=== PATIENT | male | born 1935 | race Caucasian/White ===

== ENCOUNTER 2016-06-17 15:53 | Inpatient (IN) | payer MEDICARE, BC ==
[2016-06-17] MEDS ORDERED: HEPARIN SODIUM,PORCINE 5,000 UNIT/ML 1 ML VIAL IV ONE (20:23)
[2016-06-17] MEDS ORDERED: HEPARIN SODIUM,PORCINE 5,000 UNIT/ML 1 ML VIAL IV PRN (20:23)
[2016-06-17] MEDS ORDERED: SODIUM CHLORIDE 0.9% 1,000 ML IV SCH (20:30)
[2016-06-17] MEDS ORDERED: HEPARIN SODIUM,PORCINE/D5W PMX 25,000 UNIT in DEXTROSE/WATER 1 500ML.BAG IV SCH (20:30)
[2016-06-17 21:09] LABS: Glucose,Whole Blood 113 mg/dL (75-99)
[2016-06-17 21:27] VITALS: BMI 29.0
[2016-06-17 21:28] LABS: Basophils # (A) 0.1 k/uL (0-0.2); Basophils % (A) 1 %; CH 32.8; CHCM 33.3; Eosinophils # (A) 0.5 k/uL (0-0.7); Eosinophils % (A) 8 %; HCT 45.4 % (39.0-53.0); HDW 2.81; HGB 14.3 gm/dL (13.0-17.5); Luc # (Auto) 0.21; Luc % (Auto) 3; Lymphocytes # (A) 1.4 k/uL (1.0-4.8); Lymphocytes % (A) 22 %; MCH 31.2 pg (25.0-35.0); MCHC 31.5 g/dL (31.0-37.0); MCV 98.8 fL (80.0-100.0); Macrocytosis Slight; Monocytes # (A) 0.5 k/uL (0-1.0); Monocytes % (A) 7 %; Neutrophils # (A) 3.7 k/uL (1.3-7.7); Neutrophils % (A) 59 %; RBC 4.59 m/uL (4.30-5.90); RDW 14.8 % (11.5-15.5); WBC 6.3 k/uL (3.8-10.6); WBC (Perox) 6.36
[2016-06-17 21:33] LABS: INR 1.2 (<1.1); Partial Thromboplastin Time 29.5 sec (22.0-30.0)
[2016-06-17 21:49] LABS: Creatine Kinase MB 21.4 ng/mL (0.0-2.4); Troponin I 5.32 ng/mL (0.000-0.034)
[2016-06-17] MEDS: GABAPENTIN 400 MG CAP PO SCH (23:24)
[2016-06-18 02:57] LABS: Creatine Kinase MB 20.5 ng/mL (0.0-2.4); Troponin I 7.07 ng/mL (0.000-0.034)
[2016-06-18 06:31] LABS: Glucose,Whole Blood 119 mg/dL (75-99)
[2016-06-18] MEDS: PANTOPRAZOLE 40 MG TABLET PO SCH (06:35)
[2016-06-18] MEDS: GABAPENTIN 400 MG CAP PO SCH ×4 (08:17→21:39)
[2016-06-18] MEDS: METOPROLOL TARTRATE 50 MG TAB PO SCH (08:18)
[2016-06-18] MEDS: ALLOPURINOL 300 MG TAB PO SCH (08:18)
[2016-06-18] MEDS: ISOSORBIDE MONONITRATE ER 60 MG TAB.ER.24H PO SCH (08:18)
[2016-06-18] MEDS: SPIRONOLACTONE 25 MG TAB PO SCH ×2 (08:18→21:39)
[2016-06-18 08:29] LABS: Basophils # (A) 0.1 k/uL (0-0.2); Basophils % (A) 1 %; CH 32.7; CHCM 33.6; Eosinophils # (A) 0.6 k/uL (0-0.7); Eosinophils % (A) 8 %; HCT 42.4 % (39.0-53.0); HDW 2.85; HGB 13.8 gm/dL (13.0-17.5); Luc # (Auto) 0.11; Luc % (Auto) 1; Lymphocytes # (A) 1.2 k/uL (1.0-4.8); Lymphocytes % (A) 15 %; MCH 31.9 pg (25.0-35.0); MCHC 32.6 g/dL (31.0-37.0); MCV 97.7 fL (80.0-100.0); Mean Platelet Volume 8.1; Monocytes # (A) 0.5 k/uL (0-1.0); Monocytes % (A) 6 %; Neutrophils # (A) 5.7 k/uL (1.3-7.7); Neutrophils % (A) 69 %; RBC 4.34 m/uL (4.30-5.90); RDW 14.9 % (11.5-15.5); WBC 8.2 k/uL (3.8-10.6); WBC (Perox) 8.45
[2016-06-18 09:18] LABS: Troponin I 7.32 ng/mL (0.000-0.034)
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
[2016-06-18] MEDS ORDERED: SODIUM CHLORIDE 0.9% 1,000 ML in EMPTY BAG 1 BAG IV ONE (11:28)
[2016-06-18] MEDS ORDERED: NITROGLYCERIN SL TABS 0.4 MG TAB SUBLINGUAL PRN ×2 (11:28→13:17)
[2016-06-18] MEDS ORDERED: ALPRAZolam 0.25 MG TAB PO PRN (11:28)
[2016-06-18] MEDS ORDERED: ATORVASTATIN 80 MG TAB PO STA (11:28)
[2016-06-18] MEDS ORDERED: ASPIRIN 325 MG TAB PO STA (11:28)
[2016-06-18] MEDS ORDERED: ALPRAZolam 0.5 MG TAB PO PRN (11:28)
[2016-06-18] MEDS ORDERED: LIDOCAINE 2% INJ 20 MG/ML (20 ML MDV) ONE (11:34)
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
[2016-06-18] MEDS ORDERED: MIDAZOLAM 2 MG/2 ML VIAL ONE (11:55)
[2016-06-18] MEDS ORDERED: IV FLUID CONTINUATION 250 ML IV ONE (11:59)
[2016-06-18 12:03] LABS: Cholesterol 237 mg/dL (<200); HDL Cholesterol 42 mg/dL (40-60); Triglycerides 313 mg/dL (<150)
[2016-06-18] MEDS ORDERED: LIDOCAINE 2% INJ 20 MG/ML SQ ONE (12:15)
[2016-06-18] MEDS: MIDAZOLAM 2 MG/2 ML VIAL IV ONE ×2 (12:15→12:48)
[2016-06-18] MEDS ORDERED: BIVALIRUDIN BOLUS 250 MG/50 ML IV ONE (12:46)
[2016-06-18] MEDS ORDERED: BIVALIRUDIN 250 MG in SODIUM CHLORIDE 0.9% 50 ML IV ONE (12:47)
[2016-06-18] MEDS ORDERED: fentaNYL (PF) 50 MCG/ML 2 ML AMP ONE (12:51)
[2016-06-18] MEDS ORDERED: fentaNYL (PF) 50 MCG/ML 2 ML AMP IV ONE (12:52)
[2016-06-18] MEDS ORDERED: SODIUM CHLORIDE 0.9% 500 ML IV ONE (12:56)
[2016-06-18] MEDS ORDERED: SODIUM CHLORIDE 0.9% (PF) 10 ML VIAL ONE (13:00)
[2016-06-18] MEDS ORDERED: CLOPIDOGREL 75 MG TAB ONE (13:00)
[2016-06-18] MEDS ORDERED: niCARdipine 25 MG/10 ML VIAL ONE (13:00)
[2016-06-18] MEDS: niCARdipine Syringe (1,000 mcg/10 mL) INTRACORON ONE ×2 (13:03→13:09)
[2016-06-18] MEDS ORDERED: CLOPIDOGREL 75 MG TAB PO ONE (13:08)
[2016-06-18] MEDS ORDERED: IODIXANOL 320 MG/ML 100 ML INTRAARTER ONE (13:13)
[2016-06-18] MEDS ORDERED: MAG HYDROX/AL HYDROX/SIMETH 30 ML CUP PO PRN (13:17)
[2016-06-18] MEDS ORDERED: ZOLPIDEM 5 MG TAB PO PRN (13:17)
[2016-06-18] MEDS ORDERED: RX INFO: IV CONTRAST WAS GIVEN 1 EACH MISC MISCELLANE PRN (13:17)
[2016-06-18] MEDS ORDERED: SODIUM CHLORIDE 0.9% 1,000 ML IV SCH (13:30)
[2016-06-18 17:33] LABS: Glucose,Whole Blood 132 mg/dL (75-99)
[2016-06-18] MEDS: GLIMEPIRIDE 0.5 MG TAB PO SCH (18:03)
[2016-06-18 20:25] LABS: Glucose,Whole Blood 212 mg/dL (75-99)
--- NOTE | 2016-06-18 22:05 | CC ---
DATE OF SERVICE: June 18, 2016 PERFORMING PHYSICIAN: Andrzej Fan, ribber. PROCEDURE PERFORMED: 1. Aortic root angiogram. 2. Selective right and left coronary angiogram. 3. Successful stenting of the mid left circumflex using a 2.5 x 23 and 2.5 x 12 mm Xience SHANI with a good angiographic results. 4. Successful balloon angioplasty of the proximal left circumflex for in-stent restenosis using 2.75 x 15 mm noncompliant balloon with a good angiographic results. INDICATION: This is a pleasant 80-year-old male gentleman who sees Dr. Baldemar Baer as an outpatient with a known history of coronary artery disease and prior stenting of the RCA and left circumflex presented to the hospital with chest discomfort and was diagnosed with acute [id number] MA. He continues to have chest discomfort associated with ST changes in the inferolateral leads. The decision was made toward heart catheterization and percutaneous coronary intervention. Approach: Right common femoral artery. COMPLICATIONS: None. Level of sedation: Moderate. PROCEDURE DESCRIPTION: After obtaining informed consent, the patient was brought to the cardiac catholic priest. Right common femoral artery was cannulated using micropuncture technique. The micropuncture wire passed easily, then I placed a 6 Algerian sheath in the right common femoral artery. Subsequently, I did selective right and left coronary angiogram. Initially, I tried to engage the right and left coronary artery and had some difficulties in view of the previous history of ( ) and percutaneous aortic valve placement. Finally, I was able to engage the right and left coronary arteries. For the right coronary artery, I was able to engage it using Gallo Welch catheter and for the left coronary system, I was able to engage it using JL4 catheter. I did initiate an aortic root angiogram just to localize the ostium of the right and left coronary system. After that, I did intervene on the left circumflex. Please see separate paragraph for that. SELECTIVE CORONARY ANGIOGRAM: 1. The right coronary artery is a large-caliber vessel, it is a dominant vessel. It is a tortuous vessel as well. The proximal RCA appeared to have mild disease only. The mid RCA seems to be stented and the stent is patent. The RCA distally seems to have mild disease only and bifurcates into PDA and PLV branches; both are angiographically normal. 2. The left main is short left main but angiographically normal. It bifurcates into the left circumflex and left anterior descending artery. 3. The left circumflex is a large-caliber vessel and it is a nondominant vessel. The proximal left circumflex seems to be stented with severe in-stent restenosis. The mid left circumflex has a long tubular lesion seems to be in the range of 80% to 90%. The left circumflex in the very distal portion is angiographically normal. 4. Left anterior descending artery. The proximal LAD appeared to have mild disease only and gives rises into the first diagonal branch, which appeared to be angiographically normally. The mid LAD has a lesion in the range of 50%. The LAD distally is normal. Aortic root angiogram: The aortic root angiogram was performed in the JUNI projection and using a power injection. The aortic root seems to have mild disease only. There is no formation or dissection. PCI of the left circumflex: Anticoagulation was initiated using Angiomax. Subsequently, I did engage the left main using JL 3.5 guiding catheter. Then I wired the left circumflex using a whisper wire. I did balloon angioplasty of the left circumflex using 2.5 x 15 mm balloon and subsequently I deployed 2.5 x 23 and 2.5 x 12 mm Xience SHANI, where the 2 stents were positioned under fluoroscopy guidance and deployed under their nominal pressure. The area of overlap of the stent was dilated using stent balloon. Then I did balloon angioplasty of the stent in the proximal left circumflex using 2.75 x 15 mm noncompliant balloon which was inflated under 18 atmospheres for 20 seconds. The following angiogram showed a good angiographic result without perforation or dissection with MERON-3 flow. CONCLUSION: 1. Patent stent in the mid right coronary artery. 2. Severe in-stent restenosis involving the stent in the proximal left circumflex. 3. Severe de nan coronary artery disease involving the mid left circumflex. 4. Successful stenting of the mid left circumflex using 2.5 x 23 and 2.5 x 12 mm Xience SHANI with a good angiographic results. 5. Successful balloon angioplasty of the proximal left circumflex using 2.75 x 15 mm noncompliant balloon with good angiographic results. POSTPROCEDURE MANAGEMENT: 1. Dual antiplatelet therapy. 2. Risk factor modification. 3. Follow up with the patient.
[2016-06-19 06:14] LABS: Glucose,Whole Blood 93 mg/dL (75-99)
[2016-06-19 06:31] LABS: Basophils # (A) 0.1 k/uL (0-0.2); Basophils % (A) 1 %; CH 32.6; CHCM 33.2; Eosinophils # (A) 0.5 k/uL (0-0.7); Eosinophils % (A) 7 %; HCT 42.4 % (39.0-53.0); HDW 2.81; HGB 13.3 gm/dL (13.0-17.5); Luc # (Auto) 0.12; Luc % (Auto) 2; Lymphocytes % (A) 14 %; MCHC 31.4 g/dL (31.0-37.0); MCV 98.9 fL (80.0-100.0); Macrocytosis Slight; Mean Platelet Volume 7.9; Monocytes # (A) 0.6 k/uL (0-1.0); Monocytes % (A) 9 %; Neutrophils # (A) 4.5 k/uL (1.3-7.7); Neutrophils % (A) 67 %; RBC 4.29 m/uL (4.30-5.90); RDW 14.8 % (11.5-15.5); WBC 6.7 k/uL (3.8-10.6); WBC (Perox) 6.71
[2016-06-19] MEDS: PANTOPRAZOLE 40 MG TABLET PO SCH (06:45)
[2016-06-19 06:48] LABS: Anion Gap 10 mmol/L; Calcium 9.4 mg/dL (8.4-10.2); Carbon Dioxide 21 mmol/L (22-30); Chloride 107 mmol/L (98-107); Glucose 99 mg/dL (74-99); Non-African American GFR(MDRD) 58 (>60 ml/min/1.73 sqM); Sodium 138 mmol/L (137-145); Total Bilirubin 0.6 mg/dL (0.2-1.3); Total Protein 6.4 g/dL (6.3-8.2)
[2016-06-19 06:51] LABS: ALT 38 U/L (21-72); AST 47 U/L (17-59); Alkaline Phosphatase 63 U/L (38-126); Blood Urea Nitrogen 21 mg/dL (9-20); Potassium 4.4 mmol/L (3.5-5.1)
[2016-06-19] MEDS: SPIRONOLACTONE 25 MG TAB PO SCH ×2 (08:26→21:02)
[2016-06-19] MEDS: ISOSORBIDE MONONITRATE ER 60 MG TAB.ER.24H PO SCH (08:26)
[2016-06-19] MEDS: GABAPENTIN 400 MG CAP PO SCH ×4 (08:26→21:02)
[2016-06-19] MEDS: ALLOPURINOL 300 MG TAB PO SCH (08:26)
[2016-06-19] MEDS: GLIMEPIRIDE 0.5 MG TAB PO SCH (08:26)
[2016-06-19] MEDS: METOPROLOL TARTRATE 50 MG TAB PO SCH (08:26)
[2016-06-19 08:59] LABS: Hemoglobin A1C 6.9 % (4.2-6.1)
[2016-06-19] MEDS ORDERED: ASPIRIN 325 MG TAB PO SCH (09:00)
--- NOTE | 2016-06-19 11:46 | P.PN ---
Subjective Patient presented with chest pain and evidence of acute RI. Underwent heart cath with angioplasty and stent yesterday. Patient is current with chest pain- free. Denies any shortness of breath. Denies a nausea or vomiting. Denies any bowel movement changes or urinary symptoms. Objective - Vital Signs Vital signs: Vital Signs Temp 97.3 F L 06/19/16 08:00 Pulse 60 06/19/16 08:00 Resp 16 06/19/16 08:00 BP 122/59 06/19/16 08:00 Pulse Ox 98 06/19/16 08:00 Intake & Output 06/18/16 06/19/16 06/19/16 18:59 06:59 18:59 Intake Total 375.863 298 Output Total 900 600 450 Balance -524.137 -600 -152 Weight 96 kg Intake: IV 230.6 Intake, IV Titration 145.263 Amount Heparin Sodium,Porcine/ 145.263 D5w Pmx 25,000 unit In Dextrose/Water 1 500ml. bag @ 10.5 UNITS/KG/HR 19 .84 mls/hr IV .Q24H [facility] Rx#:[id number] Oral 298 Output: Urine 900 600 450 Other: # Voids 0 - Exam Head normocephalic Neck supple Lungs clear to auscultation bilaterally no wheezing or crackles Heart regular rate and rhythm S1-S2, no rub or gallop Abdomen is soft nontender nondistended positive bowel sounds no hepatosplenomegaly Extremities no edema. Right groin soft no evidence of hematoma. Dorsalis pedis pulse on the right posterior Neuro alert and orientated to 3 - Labs CBC & Chem 7: 06/19/16 06:04 06/19/16 05:59 Labs: Abnormal Lab Results - Last 24 Hours (Table) 06/18/16 06/18/16 06/18/16 Range/Units 08:09 17:03 20:24 RBC (4.30-5.90) m/uL Carbon Dioxide (22-30) mmol/L BUN (9-20) mg/dL POC Glucose (mg/dL) 132 H 212 H (75-99) mg/dL Hemoglobin A1c (4.2-6.1) % Albumin (3.5-5.0) g/dL Triglycerides 313 H (<150) mg/dL Cholesterol 237 H (<200) mg/dL LDL Cholesterol, Calc 132 H (0-99) mg/dL 06/19/16 06/19/16 06/19/16 Range/Units 05:59 06:00 06:04 RBC 4.29 L (4.30-5.90) m/uL Carbon Dioxide 21 L (22-30) mmol/L BUN 21 H (9-20) mg/dL POC Glucose (mg/dL) (75-99) mg/dL Hemoglobin A1c 6.9 H (4.2-6.1) % Albumin 3.3 L (3.5-5.0) g/dL Triglycerides (<150) mg/dL Cholesterol (<200) mg/dL LDL Cholesterol, Calc (0-99) mg/dL Assessment and Plan Plan: 1. Acute non-ST elevated myocardial infarction present on admission. Status post heart catheterization with angioplasty and stent to the mid left circumflex. Patient currently chest pain-free. Continue aspirin and Plavix. 2. Known history of coronary artery disease with prior coronary stenting 3. Din-aofowix-aapocnkyr diabetes mellitus type 2 4. Hard of hearing deficit 5. Generalized anxiety disorder 6. Hyperlipidemia 7. Chronic Diabetic peripheral neuropathy secondary to his diabetes 8. Chronic kidney disease stage III. Creatinine baseline Discussed case with cardiac service possible discharge tomorrow
[2016-06-19 11:49] LABS: Glucose,Whole Blood 143 mg/dL (75-99)
[2016-06-19] MEDS: ACETAMINOPHEN TAB 325 MG TAB PO PRN (11:56)
[2016-06-19] MEDS: CLOPIDOGREL 75 MG TAB PO SCH (11:56)
--- NOTE | 2016-06-19 12:07 | P.PN ---
Subjective Principal diagnosis: Chest pain This is an 80-year-old gentleman who follows regularly with Dr. Jessica Baer in the office. He has a known history of coronary artery disease with prior stent placement, severe ischemic cardiomyopathy, prior AICD implant, diabetes, hypertension, hyperlipidemia, who presented to the hospital with symptoms of chest discomfort. His EKG showed a sinus rhythm with a right bundle branch block pattern and diffuse nonspecific ST-T wave changes. He did rule in for non-Q-wave myocardial infarction, he was taken to the cardiac catheterization lab by Dr. Peck where he underwent stent placement of the circumflex artery. Patient was seen and examined this morning, denies any chest pain or difficulty in breathing. Blood pressure 122/60, heart rate in the 60s. EKG shows normal sinus rhythm with a right bundle branch block pattern , no acute changes from post-PCI. Objective - Vital Signs Vital signs: Vital Signs Temp 97.3 F L 06/19/16 08:00 Pulse 60 06/19/16 08:00 Resp 16 06/19/16 08:00 BP 122/59 06/19/16 08:00 Pulse Ox 98 06/19/16 08:00 Intake & Output 06/18/16 06/19/16 06/19/16 18:59 06:59 18:59 Intake Total 375.863 298 Output Total 900 600 450 Balance -524.137 -600 -152 Weight 96 kg Intake: IV 230.6 Intake, IV Titration 145.263 Amount Heparin Sodium,Porcine/ 145.263 D5w Pmx 25,000 unit In Dextrose/Water 1 500ml. bag @ 10.5 UNITS/KG/HR 19 .84 mls/hr IV .Q24H [facility] Rx#:[id number] Oral 298 Output: Urine 900 600 450 Other: # Voids 0 - Exam PHYSICAL EXAMINATION: HEENT: Head is atraumatic, normocephalic. Pupils equal, round. Neck is supple. There is no elevated jugular venous pressure. HEART EXAMINATION: Heart S1, S2 systolic murmur heard. CHEST EXAMINATION: Lungs are clear to auscultation and precussion. No chest wall tenderness is noted on palpation or with deep breathing. ABDOMEN: Soft, nontender. Bowel sounds are heard. No organomegaly noted. Right groin soft, no evidence of any hematoma. EXTREMITIES: 2+ peripheral pulses with no evidence of peripheral edema and no calf tenderness noted. NEUROLOGIC patient is awake, alert and oriented -3. . - Labs CBC & Chem 7: 06/19/16 06:04 06/19/16 05:59 Labs: Abnormal Lab Results - Last 24 Hours (Table) 06/18/16 06/18/16 06/18/16 Range/Units 08:09 17:03 20:24 RBC (4.30-5.90) m/uL Carbon Dioxide (22-30) mmol/L BUN (9-20) mg/dL POC Glucose (mg/dL) 132 H 212 H (75-99) mg/dL Hemoglobin A1c (4.2-6.1) % Albumin (3.5-5.0) g/dL Triglycerides 313 H (<150) mg/dL Cholesterol 237 H (<200) mg/dL LDL Cholesterol, Calc 132 H (0-99) mg/dL 06/19/16 06/19/16 06/19/16 Range/Units 05:59 06:00 06:04 RBC 4.29 L (4.30-5.90) m/uL Carbon Dioxide 21 L (22-30) mmol/L BUN 21 H (9-20) mg/dL POC Glucose (mg/dL) (75-99) mg/dL Hemoglobin A1c 6.9 H (4.2-6.1) % Albumin 3.3 L (3.5-5.0) g/dL Triglycerides (<150) mg/dL Cholesterol (<200) mg/dL LDL Cholesterol, Calc (0-99) mg/dL 06/19/16 Range/Units 11:47 RBC (4.30-5.90) m/uL Carbon Dioxide (22-30) mmol/L BUN (9-20) mg/dL POC Glucose (mg/dL) 143 H (75-99) mg/dL Hemoglobin A1c (4.2-6.1) % Albumin (3.5-5.0) g/dL Triglycerides (<150) mg/dL Cholesterol (<200) mg/dL LDL Cholesterol, Calc (0-99) mg/dL Assessment and Plan (1) Ischemic cardiomyopathy Status: Acute (2) AICD (automatic cardioverter/defibrillator) present Status: Acute (3) Hyperlipemia Status: Acute Plan: From cardiology's perspective, we will recommend to continue the patient on his current medications. He is currently on aspirin 325 mg daily, Lipitor 80 mg daily, Plavix 75 mg daily, Imdur 60 mg daily, lisinopril 5 mg daily, metoprolol tartrate 50 mg daily, Aldactone 25 mg one tablet by mouth twice a day and sublingual nitroglycerin as needed for chest pain. He's been encouraged to be up ambulating in the hallway today, we'll plan for possible discharge home in 24 hours if stable. DNP note has been reviewed, I agree with a documented findings and plan of care. Patient was seen and examined.
[2016-06-19 17:00] LABS: Glucose,Whole Blood 151 mg/dL (75-99)
[2016-06-20 01:45] VITALS: RESP 16
[2016-06-20 05:36] LABS: Glucose,Whole Blood 114 mg/dL (75-99)
[2016-06-20] MEDS: PANTOPRAZOLE 40 MG TABLET PO SCH (06:14)
[2016-06-20 06:52] LABS: Basophils # (A) 0.1 k/uL (0-0.2); Basophils % (A) 1 %; CHCM 33.8; Eosinophils # (A) 0.4 k/uL (0-0.7); Eosinophils % (A) 6 %; HCT 43.6 % (39.0-53.0); HDW 2.81; HGB 14.3 gm/dL (13.0-17.5); Luc # (Auto) 0.25; Luc % (Auto) 4; Lymphocytes % (A) 15 %; MCH 32.1 pg (25.0-35.0); MCHC 32.8 g/dL (31.0-37.0); MCV 98.1 fL (80.0-100.0); Mean Platelet Volume 6.8; Monocytes # (A) 0.5 k/uL (0-1.0); Monocytes % (A) 8 %; Neutrophils # (A) 4.6 k/uL (1.3-7.7); Neutrophils % (A) 66 %; RBC 4.45 m/uL (4.30-5.90); RDW 14.7 % (11.5-15.5); WBC 6.9 k/uL (3.8-10.6); WBC (Perox) 6.88
[2016-06-20 07:10] LABS: ALT 49 U/L (21-72); AST 43 U/L (17-59); Alkaline Phosphatase 73 U/L (38-126); Anion Gap 11 mmol/L; Blood Urea Nitrogen 22 mg/dL (9-20); Calcium 9.8 mg/dL (8.4-10.2); Carbon Dioxide 24 mmol/L (22-30); Chloride 104 mmol/L (98-107); Glucose 117 mg/dL (74-99); Non-African American GFR(MDRD) 50 (>60 ml/min/1.73 sqM); Potassium 4.3 mmol/L (3.5-5.1); Sodium 139 mmol/L (137-145); Total Bilirubin 0.7 mg/dL (0.2-1.3); Total Protein 7.2 g/dL (6.3-8.2)
[2016-06-20] MEDS: ACETAMINOPHEN TAB 325 MG TAB PO PRN (08:37)
[2016-06-20] MEDS: GLIMEPIRIDE 0.5 MG TAB PO SCH (08:38)
[2016-06-20] MEDS: SPIRONOLACTONE 25 MG TAB PO SCH (08:38)
[2016-06-20] MEDS: GABAPENTIN 400 MG CAP PO SCH ×2 (08:38→13:43)
[2016-06-20] MEDS: ALLOPURINOL 300 MG TAB PO SCH (08:39)
[2016-06-20] MEDS: ISOSORBIDE MONONITRATE ER 60 MG TAB.ER.24H PO SCH (08:39)
[2016-06-20] MEDS: METOPROLOL TARTRATE 50 MG TAB PO SCH (08:39)
[2016-06-20] MEDS: CLOPIDOGREL 75 MG TAB PO SCH (08:39)
[2016-06-20] MEDS ORDERED: ASPIRIN 81 MG CHEW PO SCH (09:00)
[2016-06-20] MEDS ORDERED: LISINOPRIL 5 MG TAB PO SCH (09:00)
[2016-06-20 11:46] VITALS: BP 128/74; PULSE 58; TEMP 97.6
[2016-06-20 11:49] LABS: Glucose,Whole Blood 154 mg/dL (75-99)
--- NOTE | 2016-06-20 14:05 | P.DS ---
Providers Date of admission: 06/17/16 20:01 Expected date of discharge: 06/20/16 Attending physician: Christal Buckner Consults: 06/17/16 20:25 Consult Physician Urgent Consulting Provider: Graeme Angeles Consult Reason/Comments: elevated troponin Do you want consulting provider notified?: Yes, Notify in am 06/18/16 13:17 Consult Physician Routine Consulting Provider: [facility] Consult Reason/Comments: Post Interventional patient Do you want consulting provider notified?: Already Contacted Primary care physician: Christal [facility] Course: Diagnosis on discharge: 1. Acute non-ST elevated myocardial infarction present on admission. Status post heart catheterization with angioplasty and stent to the mid left circumflex. Patient currently chest pain-free. Continue aspirin and Plavix. 2. Known history of coronary artery disease with prior coronary stenting 3. Dol-qosfqsx-pyvygbzay diabetes mellitus type 2 continue was current management 4. Hard of hearing deficit 5. Generalized anxiety disorder 6. Hyperlipidemia, given a prescription for Lipitor 80 mg 1 daily 7. Chronic Diabetic peripheral neuropathy secondary to his diabetes 8. Chronic kidney disease stage III. Creatinine baseline Patient is stable, case discussed with cardiology, he was cleared for discharge on 06/20/2016 He will follow-up with his primary care physician in one week Follow-up with cardiology in 1-2 weeks Plan - Discharge Summary New Discharge Prescriptions: Clopidogrel [Plavix] 75 mg PO DAILY #30 tab Lisinopril [Zestril] 5 mg PO DAILY #30 tab Nitroglycerin Sl Tabs [Nitrostat] 0.4 mg SUBLINGUAL Q5M PRN #25 tab PRN Reason: Chest Pain Discharge Medication List Gabapentin 400 mg PO QID 09/29/14 [History] Isosorbide Mononitrate ER [Imdur] 60 mg PO DAILY 09/29/14 [History] Metoprolol Tartrate 50 mg PO DAILY 09/29/14 [History] Glimepiride [Amaryl] 0.5 mg PO DAILY 12/09/15 [History] Lansoprazole 30 mg PO DAILY 12/09/15 [History] Spironolactone [Aldactone] 25 mg PO BID 12/09/15 [History] Allopurinol [Zyloprim] 300 mg PO DAILY 06/17/16 [History] Aspirin [Adult Low Dose Aspirin EC] 81 mg PO DAILY 06/17/16 [History] Clopidogrel [Plavix] 75 mg PO DAILY #30 tab 06/20/16 [Rx] Lisinopril [Zestril] 5 mg PO DAILY #30 tab 06/20/16 [Rx] Nitroglycerin Sl Tabs [Nitrostat] 0.4 mg SUBLINGUAL Q5M PRN #25 tab 06/20/16 [Rx ] Follow up Appointment(s)/Referral(s): Jazlyn Baer MD [STAFF PHYSICIAN] - 1 Week
== END 2016-06-20 15:33 | disposition home health service (06) | DRG 247 ==
LOC: 6SEL 20:01
PROVIDERS: ADMIT Internal Medicine; ATTEND Internal Medicine
PROC: B310YZZ Fluoroscopy of Thoracic Aorta using Other Contrast (ICD-10-PCS; 2016-06-18)
PROC: 027035Z Dilation of Coronary Artery, One Artery with Two Drug-eluting Intraluminal Devices, Percutaneous Approach (ICD-10-PCS; principal; 2016-06-18 11:23)
PROC: 4A023N7 Measurement of Cardiac Sampling and Pressure, Left Heart, Percutaneous Approach (ICD-10-PCS; 2016-06-18 11:23)
PROC: B211YZZ Fluoroscopy of Multiple Coronary Arteries using Other Contrast (ICD-10-PCS; 2016-06-18 11:23)
DX: I21.4 Non-ST elevation (NSTEMI) myocardial infarction (principal); E11.22 Type 2 diabetes mellitus with diabetic chronic kidney disease; E11.42 Type 2 diabetes mellitus with diabetic polyneuropathy; E78.5 Hyperlipidemia, unspecified; F41.1 Generalized anxiety disorder; H91.90 Unspecified hearing loss, unspecified ear; I12.9 Hypertensive chronic kidney disease with stage 1 through stage 4 chronic kidney disease, or unspecified chronic kidney disease; I25.10 Atherosclerotic heart disease of native coronary artery without angina pectoris; I25.2 Old myocardial infarction; I25.5 Ischemic cardiomyopathy; I45.10 Unspecified right bundle-branch block; M10.9 Gout, unspecified; M79.7 Fibromyalgia; N18.3 Chronic kidney disease, stage 3 (moderate); Z79.02 Long term (current) use of antithrombotics/antiplatelets; Z79.82 Long term (current) use of aspirin; Z79.899 Other long term (current) drug therapy; Z88.5 Allergy status to narcotic agent; Z88.8 Allergy status to other drugs, medicaments and biological substances; Z95.810 Presence of automatic (implantable) cardiac defibrillator; Z95.5 Presence of coronary angioplasty implant and graft; Z87.891 Personal history of nicotine dependence; Z82.49 Family history of ischemic heart disease and other diseases of the circulatory system
CPT/HCPCS: 80053; 80061; 82550; 82553; 83036; 84484; 85025; 85610; 85730; 93454; 93567

== ENCOUNTER → 2017-08-20 | Day surgery (SDC) | payer MEDICARE ==
[2017-08-16 10:48] VITALS: BMI 27.8
[~2017-08-20] MED LIST: MIDAZOLAM 2 MG/2 ML VIAL IV ONE; MIDAZOLAM 2 MG/2 ML VIAL ONE; SODIUM CHLORIDE 0.9% 1,000 ML IV ONE; SODIUM CHLORIDE 0.9% 1,000 ML IV SCH; fentaNYL (PF) 50 MCG/ML 2 ML AMP ONE
[2017-08-20 11:03] VITALS: TEMP 98
[2017-08-20 11:16] LABS: Glucose,Whole Blood 104 mg/dL (75-99)
[2017-08-20 11:30] LABS: Basophils # (A) 0.1 k/uL (0-0.2); Basophils % (A) 2 %; Eosinophils # (A) 0.2 k/uL (0-0.7); Eosinophils % (A) 3 %; HCT 37.9 % (39.0-53.0); HGB 13.1 gm/dL (13.0-17.5); Lymphocytes % (A) 20 %; MCH 30.8 pg (25.0-35.0); MCHC 34.4 g/dL (31.0-37.0); MCV 89.4 fL (80.0-100.0); Mean Platelet Volume 7.1; Monocytes # (A) 0.5 k/uL (0-1.0); Monocytes % (A) 9 %; Neutrophils # (A) 3.1 k/uL (1.3-7.7); Neutrophils % (A) 62 %; Platelet Count 286 k/uL (150-450); Poikilocytosis Slight; RBC 4.24 m/uL (4.30-5.90); RDW 14.4 % (11.5-15.5)
[2017-08-20] MEDS: BENZOCAINE SPRAY 1 CAN MUCOUS MEM ONE ×2 (11:48→11:50)
[2017-08-20] MEDS: fentaNYL (PF) 50 MCG/ML 2 ML AMP IV ONE ×2 (11:49→11:57)
[2017-08-20 12:19] VITALS: RESP 16
[2017-08-20 16:07] VITALS: BP 133/71; PULSE 64
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
== END | disposition home or self-care (01) ==
LOC: CATHCVL 10:13
PROVIDERS: ATTEND Internal Medicine Cardiovascular Disease
DX: R93.1 Abnormal findings on diagnostic imaging of heart and coronary circulation (principal); I35.8 Other nonrheumatic aortic valve disorders; Z95.2 Presence of prosthetic heart valve; Z95.810 Presence of automatic (implantable) cardiac defibrillator; I25.10 Atherosclerotic heart disease of native coronary artery without angina pectoris; I25.5 Ischemic cardiomyopathy; E11.22 Type 2 diabetes mellitus with diabetic chronic kidney disease; I12.9 Hypertensive chronic kidney disease with stage 1 through stage 4 chronic kidney disease, or unspecified chronic kidney disease; N18.2 Chronic kidney disease, stage 2 (mild); E78.00 Pure hypercholesterolemia, unspecified; I25.2 Old myocardial infarction; Z95.5 Presence of coronary angioplasty implant and graft; Z79.84 Long term (current) use of oral hypoglycemic drugs; Z79.02 Long term (current) use of antithrombotics/antiplatelets; Z79.82 Long term (current) use of aspirin; Z79.899 Other long term (current) drug therapy; Z88.5 Allergy status to narcotic agent; Z87.891 Personal history of nicotine dependence
CPT/HCPCS: 93312; 93320; 93325; 85025; J2250; J3010

== ENCOUNTER → 2017-10-25 | Outpatient (CLI) | payer MEDICARE ==
[2017-10-25 17:11] LABS: HCT 39.1 % (39.0-53.0); HGB 13.3 gm/dL (13.0-17.5); MCH 30.9 pg (25.0-35.0); MCV 90.9 fL (80.0-100.0); Mean Platelet Volume 7.1; Platelet Count 218 k/uL (150-450); WBC 5.7 k/uL (3.8-10.6)
[2017-10-25 17:28] LABS: Potassium 4.2 mmol/L (3.5-5.1)
== END | disposition home or self-care (01) ==
LOC: LABPAT 16:13
PROVIDERS: ATTEND Internal Medicine Cardiovascular Disease
DX: Z01.812 Encounter for preprocedural laboratory examination (principal); I25.5 Ischemic cardiomyopathy
CPT/HCPCS: 80051; 82565; 84520; 85027

== ENCOUNTER 2017-10-30 10:23 | Day surgery (SDC) | payer MEDICARE ==
[~2017-10-30 10:23] MED LIST changes: -MIDAZOLAM 2 MG/2 ML VIAL IV ONE; -MIDAZOLAM 2 MG/2 ML VIAL ONE; -SODIUM CHLORIDE 0.9% 1,000 ML IV ONE; +ceFAZolin 1,000 MG in SODIUM CHLORIDE 0.9% IRRIGATIO 250 ML IRRIGATION ONE; +ceFAZolin IN SWFI 2 GM/20 ML SYRINGE IVP ONE; -fentaNYL (PF) 50 MCG/ML 2 ML AMP ONE
[2017-10-30 11:04] LABS: Glucose,Whole Blood 153 mg/dL (75-99)
[2017-10-30] MEDS ORDERED: ASPIRIN 81 MG ONE (11:16)
[2017-10-30] MEDS ORDERED: LIDOCAINE 1% INJ 10MG/ML (20 ML MDV) ONE ×2 (12:03)
[2017-10-30] MEDS ORDERED: fentaNYL (PF) 50 MCG/ML 2 ML AMP ONE (12:31)
[2017-10-30] MEDS: fentaNYL (PF) 50 MCG/ML 2 ML AMP IV ONE ×3 (12:32→12:39)
[2017-10-30] MEDS ORDERED: LIDOCAINE 1% INJ 10MG/ML (20 ML MDV) SQ ONE ×2 (12:34→12:40)
--- NOTE | 2017-10-30 13:17 | P.PCN ---
Date of Procedure: 10/30/17 Preoperative Diagnosis: Cardiomyopathy status post AICD placement with evidence of battery depletion Postoperative Diagnosis: The same Procedure(s) Performed: Battery replacement Description of Procedure: HISTORY: This is a 82-year-old gentleman with history of AICD implantation and cardiomyopathy, who was found to have evidence of battery depletion. Patient was brought in for elective replacement of the battery. CONSENT: I have discussed the risks and benefits as related to the above mentioned procedure and both sedation/analgesia as well as necessary blood product administration. The patient has indicated understanding and acceptance of the risks of the procedure discussed. PROCEDURE: Patient was brought to the lab in a fasting state. Patient was given IV Versed and fentanyl for sedation. The skin over the existing pulse generator was infiltrated with lidocaine. An incision was made in the skin and was deepened until the pectoral fascia was exposed. Hemostasis was obtained. The existing pulse generator was pulled out of the pocket. The leads were disconnected and were checked for thresholds. Conscious Sedation: Versed 0mg Fentanyl 50 g Duration 22 minutes THRESHOLDS: ATRIAL: The minimum patient threshold is 0.5 V at pulse width of 0.4 ms. The impedance is 418 ohms. The P-wave is 3.9 mV VENTRICULAR: The minimum patient threshold is 2.75 at pulse width of 1 patent. The impedance is 361 ohms. R- wave: 19 mV THE LEADS: ATRIAL: This is manufactured by [employer]. Model number is 5076. And the serial number is [id number] VENTRICULAR: This is manufactured by [employer]. Model number is 6947 and the serial number is [id number] THE NEW DEVICE: This is manufactured by [employer]. Model number is [id number] AND THE SERIAL NUMBER IS [id number] THE EXPLANTED DEVICE: THIS IS MANUFACTURED BY [employer]. PRODUCT NUMBER IS [id number] and the serial number is [id number] The leads were then connected to a new pulse generator. Pacemaker seems to function normally. The pocket was irrigated with antibiotics. The pocket was closed in the usual fashion. Pectoral fascia was closed with 2-0 Prolene, the subcutaneous tissue was closed with 3-0 Prolene and the skin was closed with 4- 0 Prolene. Patient tolerated the procedure well . Patient will be monitored on the telemetry unit. Because of the history of previous sepsis, patient will be monitored on the observation unit and IV antibiotics will be continued for 24 hours. DFT TESTING: Not performed PROGRAMMING: Ruben programming: The mode: AAIR to mode switch to DDDR. Lower rate 50 and upper rate 130. The output in atrium is 2 and the ventricle 5 V. Tachycardia programming.: VF zone is programmed to a interval of 300 ms. The therapies were programmed to 20 J shock followed by 30 J shock followed by 354. The VT zone is programmed to an interval of 340 ms. Therapies are programmed to burst pacing 2 followed by cardioversion 4 at 10 followed by 20 followed by 352 j. The monitor zone was programmed to interval of 450 ms PLAN: Patient will be monitored for the next 24 hours and continued on antibiotics. Discharged in the morning FALLOW UP: Follow-up with HERMELINDA Baer upon discharge.
[2017-10-30] MEDS: ACETAMINOPHEN TAB 325 MG TAB PO PRN ×2 (14:47→20:17)
[2017-10-30 17:49] LABS: Glucose,Whole Blood 200 mg/dL (75-99)
[2017-10-30] MEDS ORDERED: SENNOSIDES 8.6 MG TAB PO PRN (17:58)
[2017-10-30] MEDS: ceFAZolin IN SWFI 2 GM/20 ML SYRINGE IVP SCH ×2 (18:19→23:02)
[2017-10-30] MEDS: GABAPENTIN 100 MG CAP PO SCH (20:17)
[2017-10-30] MEDS: FUROSEMIDE 20 MG TAB PO SCH (20:17)
[2017-10-30] MEDS ORDERED: TAMSULOSIN 0.4 MG CAP.ER.24H PO SCH (21:00)
[2017-10-31 03:55] VITALS: RESP 18
[2017-10-31] MEDS: ceFAZolin IN SWFI 2 GM/20 ML SYRINGE IVP SCH ×2 (05:36→11:59)
[2017-10-31 06:55] LABS: Glucose,Whole Blood 190 mg/dL (75-99)
[2017-10-31] MEDS ORDERED: PANTOPRAZOLE 40 MG TABLET PO SCH (07:30)
[2017-10-31] MEDS ORDERED: GLIMEPIRIDE 1 MG TAB PO SCH (07:30)
[2017-10-31] MEDS: GABAPENTIN 100 MG CAP PO SCH (07:48)
[2017-10-31] MEDS: FUROSEMIDE 20 MG TAB PO SCH (07:49)
[2017-10-31] MEDS ORDERED: BUDESONIDE 0.25 MG/2 ML NEBU INHALATION SCH (08:00)
[2017-10-31] MEDS ORDERED: ALLOPURINOL 100 MG TAB PO SCH (09:00)
[2017-10-31] MEDS ORDERED: NIFEdipine XL 30 MG TAB.ER.24 PO SCH (09:00)
[2017-10-31] MEDS ORDERED: METOPROLOL TARTRATE 50 MG TAB PO SCH (09:00)
[2017-10-31 11:31] VITALS: BP 148/74; PULSE 50; TEMP 98.3
[2017-10-31 12:13] LABS: Glucose,Whole Blood 189 mg/dL (75-99)
--- NOTE | 2017-11-02 13:26 | P.DS ---
Providers Date of admission: 10/30/2017 Attending physician: Graeme Angeles Primary care physician: Christal Buckner - Discharge Diagnosis(es) (1) AICD (automatic cardioverter/defibrillator) present Status: Acute (2) CAD (coronary artery disease) Status: Acute (3) Diabetes Status: Acute Hospital Course: This is a 82-year-old gentleman with history of previous AICD implantation was the 20 to have battery depletion. Patient was heart and for replacement of the battery. Patient had a procedure done yesterday. Patient had history of sepsis and an infection in the past. Patient was kept overnight for high in IV antibiotic therapy. Patient remained stable. Patient is being discharged home today. Patient will resume home medications. Patient will have follow-up with Dr. HERMELINDA Baer. Patient will keep the incision dry until seen in the office. Plan - Discharge Summary Discharge Rx Participant: No New Discharge Prescriptions: New Cephalexin [Keflex] 500 mg PO Q8HR #10 cap No Action Metoprolol Tartrate 50 mg PO DAILY Lansoprazole 30 mg PO DAILY Glimepiride [Amaryl] 0.5 mg PO DAILY Aspirin [Adult Low Dose Aspirin EC] 81 mg PO DAILY Clopidogrel [Plavix] 75 mg PO DAILY #30 tab Furosemide [Lasix] 20 mg PO BID Budesonide [Pulmicort] 0.25 mg INHALATION DAILY Tamsulosin HCl [Flomax] 0.4 mg PO HS Sennosides [Senna] 8.6 mg PO DAILY PRN PRN Reason: Constipation NIFEdipine [NIFEdipine ER] 30 mg PO DAILY Gabapentin [Neurontin] 100 mg PO BID Allopurinol [Zyloprim] 100 mg PO DAILY Discharge Medication List Metoprolol Tartrate 50 mg PO DAILY 09/29/14 [History] Glimepiride [Amaryl] 0.5 mg PO DAILY 12/09/15 [History] Lansoprazole 30 mg PO DAILY 12/09/15 [History] Aspirin [Adult Low Dose Aspirin EC] 81 mg PO DAILY 06/17/16 [History] Clopidogrel [Plavix] 75 mg PO DAILY #30 tab 06/20/16 [Rx] Budesonide [Pulmicort] 0.25 mg INHALATION DAILY 08/17/17 [History] Furosemide [Lasix] 20 mg PO BID 08/17/17 [History] NIFEdipine [NIFEdipine ER] 30 mg PO DAILY 08/17/17 [History] Sennosides [Senna] 8.6 mg PO DAILY PRN 08/17/17 [History] Tamsulosin HCl [Flomax] 0.4 mg PO HS 08/17/17 [History] Allopurinol [Zyloprim] 100 mg PO DAILY 10/30/17 [History] Gabapentin [Neurontin] 100 mg PO BID 10/30/17 [History] Cephalexin [Keflex] 500 mg PO Q8HR #10 cap 10/31/17 [Rx] Follow up Appointment(s)/Referral(s): Jazlyn Baer MD [STAFF PHYSICIAN] - 11/07/17 4:00 pm Patient Instructions/Handouts: Pacemaker Generator Change (DC) Discharge Disposition: HOME SELF-CARE
== END 2017-10-31 14:17 | disposition home or self-care (01) ==
LOC: CATHEP 10:23 → 3OBS 17:05 → CATHEP 10-31 14:17
PROVIDERS: ATTEND Internal Medicine Cardiovascular Disease
DX: I42.9 Cardiomyopathy, unspecified (principal); Z45.02 Encounter for adjustment and management of automatic implantable cardiac defibrillator; E78.5 Hyperlipidemia, unspecified; E78.00 Pure hypercholesterolemia, unspecified; E11.22 Type 2 diabetes mellitus with diabetic chronic kidney disease; I13.0 Hypertensive heart and chronic kidney disease with heart failure and stage 1 through stage 4 chronic kidney disease, or unspecified chronic kidney disease; N18.2 Chronic kidney disease, stage 2 (mild); I50.9 Heart failure, unspecified; Z79.84 Long term (current) use of oral hypoglycemic drugs; Z87.891 Personal history of nicotine dependence; I48.91 Unspecified atrial fibrillation; Z79.2 Long term (current) use of antibiotics; Z79.02 Long term (current) use of antithrombotics/antiplatelets; Z79.82 Long term (current) use of aspirin; Z79.899 Other long term (current) drug therapy; Z88.5 Allergy status to narcotic agent; Z95.2 Presence of prosthetic heart valve
CPT/HCPCS: 94640; 33263; C1721; J2001; J3010; J0690 ×2

== ENCOUNTER 2017-12-19 08:45 | Emergency (ER) | payer MEDICARE ==
[2017-12-19 08:50] VITALS: TEMP 97.8
[2017-12-19] MEDS ORDERED: MORPHINE SULFATE 4 MG/ML SYRINGE IM STA (09:05)
[2017-12-19] MEDS ORDERED: HYDROcodone/APAP 5-325MG 1 EACH TAB PO STA (09:07)
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
--- NOTE | 2017-12-19 10:27 | CT ---
EXAMINATION TYPE: CT pelvis wo con DATE OF EXAM: 12/19/2017 COMPARISON: HISTORY: Fall from seated position today. Low back and Left hip and pelvic pain CT DLP: 681.1 mGycm Automated exposure control for dose reduction was used. FINDINGS: There is no acute fracture or dislocation in the pelvis. Pubic symphysis is maintained. Sacroiliac chuy ints are symmetric and felt within normal limits. There is mild axial joint space loss in both hips s ymmetric in appearance without significant spurring. Small sclerotic focus right iliac bone superior acetabular level axial image 43 is felt to reflect benign bone island. Prostate gland is enlarged in size bulging on bladder base consistent with underlying BPH. There is partial visualization of stent graft in the distal abdominal aorta. There is moderate calcif ied plaque in the iliac branch vessels. Bladder is mildly distended without suspicious wall thickening. No concerning pelvic fluid collection is seen. No suspicious bowel dilatation is identified. Bilateral thigh muscles are symmetric and fel t within normal limits. No suspicious inguinal hernia or adenopathy identified. IMPRESSION: No acute fracture or dislocation in pelvis is seen.
--- NOTE | 2017-12-19 10:33 | CT ---
EXAMINATION TYPE: CT lumbar spine wo con DATE OF EXAM: 12/19/2017 9:54 AM COMPARISON: None HISTORY: Fall from seated position today. Low back and Left hip pain CT DLP: 1517.9 mGycm Automated exposure control for dose reduction was used. Unenhanced CT of the lumbar spine was performed. Bone and soft tissue window settings are submitted as well as coronal and sagittal reconstructions. There are 5 lumbar type vertebra identified. There is loss of normal lumbar lordosis on sagittal imag es. There is moderate multilevel anterior and lateral spurring. There is moderate multilevel disc spa ce narrowing and vacuum disc phenomenon with more advanced disc space narrowing noted L4-L5 level. No acute fracture or dislocation is evident. Posterior spur disc complexes are effacing anterior thecal sac at L1-L2 and L3-L4 levels on sagittal images. Review of axial images shows multilevel disc herniations and facet arthropathy contributing to multil evel spinal canal effacement most prominent L1-L2 level axial image 30 but also seen at L4-L5 level a xial image 62 and L5-S1 level axial image 72. There is mid to distal abdominal aortic intraluminal graft with surrounding surgical clips. There is symmetric cortical thinning in both kidneys. There is suspected small size hiatal hernia partially im aged on the most superior axial images. IMPRESSION: No acute fracture or dislocation is evident.
[2017-12-19 11:02] VITALS: BP 135/65; PULSE 50; RESP 18
== END 2017-12-19 11:27 ==
LOC: EC 08:45
DX: M51.36 Other intervertebral disc degeneration, lumbar region (principal); M54.32 Sciatica, left side; M51.26 Other intervertebral disc displacement, lumbar region; I25.119 Atherosclerotic heart disease of native coronary artery with unspecified angina pectoris; E78.5 Hyperlipidemia, unspecified; H91.90 Unspecified hearing loss, unspecified ear; I10 Essential (primary) hypertension; I25.2 Old myocardial infarction; M10.9 Gout, unspecified; M79.7 Fibromyalgia; Z87.891 Personal history of nicotine dependence; E11.40 Type 2 diabetes mellitus with diabetic neuropathy, unspecified; Z79.51 Long term (current) use of inhaled steroids; Z79.82 Long term (current) use of aspirin; Z79.84 Long term (current) use of oral hypoglycemic drugs; Z79.899 Other long term (current) drug therapy; Z88.5 Allergy status to narcotic agent; Z88.8 Allergy status to other drugs, medicaments and biological substances; Z95.5 Presence of coronary angioplasty implant and graft; Z95.810 Presence of automatic (implantable) cardiac defibrillator
CPT/HCPCS: 72192; 72131; 99284; 96372; J2270

== ENCOUNTER 2019-06-05 15:40 | Inpatient (IN) | payer MEDICARE ==
[2019-06-05] MEDS ORDERED: SODIUM CHLORIDE 0.9% 500 ML 500 ML IV ONE (17:19)
[2019-06-05 17:56] LABS: Albumin 4.9 g/dL (3.5-5.0); Calcium 10.1 mg/dL (8.4-10.2); Total Bilirubin 1.4 mg/dL (0.2-1.3); Total Protein 8.6 g/dL (6.3-8.2)
[2019-06-05 17:58] LABS: Basophils # (A) 0.1 k/uL (0-0.2); Basophils % (A) 1 %; Eosinophils # (A) 0.1 k/uL (0-0.7); Eosinophils % (A) 1 %; HCT 48.5 % (39.0-53.0); HGB 16.4 gm/dL (13.0-17.5); Lymphocytes # (A) 1.5 k/uL (1.0-4.8); Lymphocytes % (A) 22 %; MCHC 33.9 g/dL (31.0-37.0); MCV 94.6 fL (80.0-100.0); Mean Platelet Volume 8.3; Monocytes # (A) 0.6 k/uL (0-1.0); Monocytes % (A) 8 %; Neutrophils # (A) 4.2 k/uL (1.3-7.7); Neutrophils % (A) 64 %; Platelet Count 210 k/uL (150-450); Prothrombin Time 10.9 sec (9.0-12.0); RBC 5.13 m/uL (4.30-5.90); RDW 13.5 % (11.5-15.5); WBC 6.5 k/uL (3.8-10.6)
[2019-06-05 18:03] LABS: Potassium 5.2 mmol/L (3.5-5.1)
[2019-06-05 18:36] LABS: Appearance,Urine Clear (Clear); Bacteria,Urine Rare /hpf; Bilirubin,Urine Negative (Negative); Blood,Urine Small (Negative); Color,Urine Yellow; Glucose,Urine (UA) Negative (Negative); Granular Casts,Urine 4 /lpf (0); Ketones,Urine Negative (Negative); Leukocyte Esterase,Urine Large (Negative); Mucus,Urine Rare /hpf; Nitrite,Urine Negative (Negative); Protein,Urine 3+ (Negative); RBC,Urine 1 /hpf (0-5); Specific Gravity,Urine 1.016 (1.001-1.035); Squamous Epithelial Cell,Urine 1 /hpf (0-4); Urobilinogen,Urine <2.0 mg/dL (<2.0); WBC,Urine 47 /hpf (0-5)
[2019-06-05] MEDS ORDERED: hydrALAZINE HCL 20 MG/ML 1 ML VIAL IVP STA (18:48)
[2019-06-05 18:49] LABS: Amphetamine Screen,Urine Not Detected (NotDetected); Barbiturate Screen,Urine Not Detected (NotDetected); Benzodiazepines Screen,Urine Not Detected (NotDetected); Cocaine Screen,Urine Not Detected (NotDetected); Methadone Screen, Urine Not Detected (NotDetected); Opiate Screen,Urine Not Detected (NotDetected); Oxycodone Screen, Urine Not Detected (NotDetected); Phencyclidine Screen,Urine Not Detected (NotDetected); Tricyclic Antidepressant,Urine Not Detected (NotDetected); Urn Cannabinoid Scrn Not Detected (NotDetected)
--- NOTE | 2019-06-05 18:59 | XR ---
EXAMINATION TYPE: XR chest 2V DATE OF EXAM: 06/05/2019 COMPARISON: June 05, 2017 HISTORY: Altered mental status TECHNIQUE: 2 views FINDINGS: Heart appears enlarged. There is no heart failure. Costophrenic angles are fairly clear. Th ere is a left axillary pacemaker. There are chest leads. IMPRESSION: Mild cardiomegaly. No active cardiopulmonary disease. No significant change compared to e adriel earlier today.
[2019-06-05] MEDS ORDERED: cefTRIAXone IN SWFI 1,000 MG/10 ML SYRINGE IVP STA (19:00)
[2019-06-05] MEDS ORDERED: LORazepam 1 MG TAB PO STA (19:01)
--- NOTE | 2019-06-05 19:01 | CT ---
EXAMINATION TYPE: CT brain wo con DATE OF EXAM: 06/05/2019 COMPARISON: 06/07/2017 HISTORY: Altered mental status. CT DLP: 1188.4 mGycm Automated exposure control for dose reduction was used. There is some cerebral cortical atrophy. There is enlargement of the ventricles. There is no evidence of cerebral edema. Calvarium is intact. 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 IMPRESSION: Mild atrophy. Mild hydrocephalus. No acute intracranial abnormality. No significant change compared t o old exam.
[2019-06-05 19:08] LABS: Ammonia <9 umol/L (<30); Lactic Acid, Venous 1.5 mmol/L (0.7-2.0)
[2019-06-05] MEDS ORDERED: LORazepam 2 MG/ML INJ IV STA (19:10)
[2019-06-05] MEDS ORDERED: KETAMINE 10 MG/ML 20 ML VIAL IM STA (20:15)
[2019-06-05] MEDS ORDERED: KETAMINE 50 MG/ML 10 ML VIAL IM ONE (20:19)
[2019-06-05 20:21] LABS: Glucose,Whole Blood 159 mg/dL (75-99)
[2019-06-05] MEDS ORDERED: ATROPINE SULFATE 0.1 MG/ML 10ML SYRINGE IM STA ×2 (21:23→21:25)
--- NOTE | 2019-06-05 22:20 | CT ---
EXAMINATION TYPE: CT brain wo con for TPA DATE OF EXAM: 06/05/2019 COMPARISON: Today HISTORY: AMS. Right sided facial droop. CT DLP: 1228.8 mGycm Automated exposure control for dose reduction was used. There is enlargement of the ventricles. There is mild cerebral cortical atrophy. There is no mass eff ect nor midline shift. There is no sign of intracranial hemorrhage. Calvarium is intact. IMPRESSION: Cerebral atrophy and hydrocephalus. No acute intracranial abnormality. No change.
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
--- NOTE | 2019-06-05 22:29 | CT ---
EXAMINATION TYPE: CT angio head neck DATE OF EXAM: 06/05/2019 COMPARISON: None HISTORY: AMS. Right sided facial droop. CT DLP: 711.3 mGycm Automated exposure control for dose reduction was used. CONTRAST: Performed with IV Contrast, patient injected with 65 mL of Isovue 370. Multiple axial sections were obtained from the aortic arch to the vertex of the brain with intravenou s contrast. There are 3-D post processed images. Thoracic aorta is atheromatous. There is normal branching pattern of the great vessels on the aortic arch. There is bilateral arterial flow in the subclavian arteries. There is arterial flow in both cheryle tebral arteries. There is arterial flow in the common internal and external carotid arteries bilatera lly. There is bilateral plaque in the carotid arteries. Exam limited slightly by motion. There is mod erate calcification at the carotid artery bifurcations. There is probably 75% stenosis at the origin of the left internal carotid artery due to plaque. There is approximate 25% stenosis origin of the ri ght internal carotid artery due to plaque formation. There is arterial flow in the anterior middle and posterior cerebral arteries. There is normal contra st opacification of the venous sinuses. I see no mass effect. There is no evidence of intracranial an eurysm or neovascularity. There is no evidence of intracranial hemodynamic stenosis. IMPRESSION: Atherosclerotic plaque formation at the carotid artery bifurcations. Exam limited slightly by motion. There is probably 75% stenosis origin of the left internal carotid artery and 25% stenosis origin ri ght internal carotid artery. No intracranial angiographic abnormality.
[2019-06-05] MEDS ORDERED: PROPOFOL 1,000 MG in EMPTY BAG 1 BAG IV ONE (22:58)
[2019-06-05] MEDS ORDERED: ETOMIDATE 2 MG/ML 10 ML VIAL IVP STA (23:01)
[2019-06-05] MEDS ORDERED: ROCURONIUM BROMIDE 10 MG/ML 10 ML VIAL IV STA (23:06)
[2019-06-05] MEDS ORDERED: SODIUM CHLORIDE 0.9% 1,000 ML IV ONE (23:22)
[2019-06-05] MEDS ORDERED: NALOXONE 0.4 MG/ML 1 ML VIAL IV PRN (23:40)
[2019-06-05 23:54] LABS: ABG Base Excess -5.8 mmol/L; ABG HCO3 20 mmol/L (21-25); ABG Oxygen Saturation 99.4 % (94-97); ABG PCO2 35 mmHg (35-45); ABG PH 7.36 (7.35-7.45); ABG PO2 186 mmHg (83-108); ABG TCO2 21 mmol/L (19-24); Allen Test Performed? Yes
--- NOTE | 2019-06-06 00:02 | XR ---
EXAMINATION TYPE: XR chest 1V DATE OF EXAM: 06/05/2019 COMPARISON: Today HISTORY: Intubation. Altered mental status TECHNIQUE: Single view FINDINGS: There is a left axillary pacemaker with the lead tips over the right ventricle. There is en dotracheal tube that is 4 cm from the john. There is no heart failure. Lungs are clear of infiltrat e. There is no pleural effusion. There is nasogastric tube in the stomach. IMPRESSION: Endotracheal tube in good position. No active cardiopulmonary disease.
[2019-06-06 00:04] LABS: Magnesium 1.8 mg/dL (1.6-2.3)
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
[2019-06-06] MEDS ORDERED: MIDAZOLAM 1 MG/ML 5 ML VIAL IV STA (01:04)
[2019-06-06] MEDS ORDERED: SODIUM CHLORIDE 0.9% 1,000 ML IV ONE (01:05)
[2019-06-06 02:10] LABS: Glucose,Whole Blood 153 mg/dL (75-99)
[2019-06-06] MEDS ORDERED: SODIUM CHLORIDE 0.9% 1,000 ML IV SCH (02:45)
[2019-06-06] MEDS: DOCUSATE 100 MG CAP PO SCH (03:57)
[2019-06-06] MEDS: PROPOFOL 1,000 MG in EMPTY BAG 1 BAG IV SCH ×5 (04:06→21:16)
[2019-06-06] MEDS: NOREPINEPHRINE 4 MG in SODIUM CHLORIDE 0.9% 250 ML IV SCH ×2 (04:06→20:45)
[2019-06-06 05:25] LABS: Basophils % (A) 0 %; Eosinophils # (A) 0.1 k/uL (0-0.7); Eosinophils % (A) 1 %; HCT 44.5 % (39.0-53.0); HGB 14.8 gm/dL (13.0-17.5); Lymphocytes # (A) 1.7 k/uL (1.0-4.8); Lymphocytes % (A) 14 %; MCH 32.2 pg (25.0-35.0); MCHC 33.3 g/dL (31.0-37.0); MCV 96.7 fL (80.0-100.0); Mean Platelet Volume 7.9; Monocytes % (A) 8 %; Neutrophils # (A) 9.1 k/uL (1.3-7.7); Neutrophils % (A) 75 %; Platelet Count 190 k/uL (150-450); RBC 4.61 m/uL (4.30-5.90); RDW 13.9 % (11.5-15.5); WBC 12.2 k/uL (3.8-10.6)
[2019-06-06 05:38] LABS: ABG Base Excess -3.3 mmol/L; ABG HCO3 22 mmol/L (21-25); ABG Oxygen Saturation 99.1 % (94-97); ABG PCO2 36 mmHg (35-45); ABG PH 7.39 (7.35-7.45); ABG PO2 152 mmHg (83-108); ABG TCO2 23 mmol/L (19-24); Allen Test Performed? Yes
[2019-06-06 05:40] LABS: Albumin 3.7 g/dL (3.5-5.0); Calcium 8.5 mg/dL (8.4-10.2); Magnesium 1.6 mg/dL (1.6-2.3); Potassium 4.5 mmol/L (3.5-5.1); Total Bilirubin 0.9 mg/dL (0.2-1.3); Total Protein 6.7 g/dL (6.3-8.2)
[2019-06-06 06:07] LABS: Glucose,Whole Blood 145 mg/dL (75-99)
[2019-06-06] MEDS ORDERED: INSULIN ASPART (NovoLOG) 100 UNIT/ML VIAL SQ SCH (07:30)
[2019-06-06] MEDS ORDERED: Magnesium Replacement Protocol 1 EACH MISC MISCELLANE PRN (07:36)
[2019-06-06] MEDS ORDERED: IPRATROPIUM-ALBUTEROL 3 ML NEB INHALATION PRN (07:59)
[2019-06-06] MEDS: INSULIN ASPART (NovoLOG) 100 UNIT/ML VIAL SQ SCH ×3 (08:43→18:31)
[2019-06-06] MEDS: MAGNESIUM SULFATE-D5W PMX 1 GM in DEXTROSE/WATER 1 100ML.BAG IVPB SCH ×2 (08:48→11:37)
[2019-06-06] MEDS: APIXABAN 2.5 MG TABLET PO SCH ×2 (08:48→21:05)
[2019-06-06] MEDS: PANTOPRAZOLE 40 MG/10 ML VIAL IV SCH (08:48)
[2019-06-06] MEDS ORDERED: NON FORMULARY DRUG (Lansoprazole [Prevacid] 30 MG) PO SCH (09:00)
[2019-06-06] MEDS ORDERED: NIFEdipine XL 30 MG TAB.ER.24 PO SCH (09:00)
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
--- NOTE | 2019-06-06 10:01 | XR ---
EXAMINATION TYPE: XR chest 1V DATE OF EXAM: 06/06/2019 COMPARISON: 06/05/2019 HISTORY: Post line placement TECHNIQUE: Single frontal view of the chest is obtained. FINDINGS: Left lower lobe consolidation with subsegmental changes at the right lung base. Hypertroph ic and degenerative changes spine. ET and NG tube noted. Pacemaker seen. No overt failure or pneumoth orax. Cardiomegaly seen. IMPRESSION: 1. Bibasilar consolidation correlate for atelectasis versus infiltrate. No overt failure.
--- NOTE | 2019-06-06 10:47 | CONS ---
CONSULTATION PULMONARY/CRITICAL CARE CONSULTATION: DATE OF CONSULTATION: 06/06/2019 This is an 83-year-old male who apparently presented to the emergency department for mental status changes. He apparently had not been feeling well and having changes in his mental status for at least 3 days prior to admission. He was brought in by his son. Initially he was thought to have a CVA. A code stroke was called. I got called by Dr. Hadley last night who thought the patient was really not mental status changes from a CVA, but rather mental status changes from possible sepsis and urinary tract infection. Anyway, the patient really did not improve while down in the emergency room and was very lethargic and the patient apparently had been getting worse in regard to mental status and Dr. Hadley thought the patient could not protect his airway and he was intubated and transferred up to the ICU. Again, not much history is obtained from the patient because I did not see the patient initially. When I saw the patient, he was running in the ICU on the ventilator. Dr. Hadley said the patient did not provide any additional information and I am just reading off the ER anastacia and not much additional information as noted there. CURRENT HOME MEDICATIONS: Include Amaryl, aspirin, nifedipine, Flomax, Zyloprim, Neurontin, Tylenol, Eliquis, Colace, Lasix, Prevacid, and MiraLAX. ALLERGIES: Include CELEBREX, TRAMADOL, and SLEEPING PILL. MEDICAL HISTORY: According to the ER anastacia includes CAD, angina, diabetes mellitus, fibromyalgia, deafness, hyperlipidemia, benign essential hypertension, myocardial infarction, gout, and neuropathy. He is also status post AICD placement. SURGICAL HISTORY: Includes a heart catheterization with stent placement, pacemaker insertion, AAA repair, neck surgery, eye surgery, and AICD placement. SOCIAL HISTORY: Positive for previous tobacco use. Occasional alcohol use. No illicit drug use. FAMILY HISTORY: Positive for a father with myocardial infarction. Mother with a brain aneurysm. REVIEW OF SYSTEMS: Cannot be obtained at this time because the patient is currently on the ventilator. According to the ER anastacia, the patient was brought into the ER by his son for mental status changes. Current vital signs are reviewed, temperature is 98.6, heart rate 60, respiratory rate 20, blood pressure 107/62 mean 77, saturations are 97%. Appears in no acute distress. He has an orally placed endotracheal tube and NG tube. HEENT: Examination is grossly unremarkable. NECK: Supple. Full range of motion. No adenopathy. CARDIOVASCULAR: Examination reveals regular rhythm and rate. Heart rate 60. S1, S2 normal. No murmur. LUNGS: Reveal coarse rhonchi. Breath sounds equal. ABDOMEN: Soft, bowel sounds are not noted. EXTREMITIES: Intact. No cyanosis, clubbing, or edema. SKIN: Without rash. NEUROLOGIC: Examination could not be assessed properly as the patient is currently sedated. He apparently came in with mental status changes. Current vent settings are the volume assist-control mode rate of 16, tidal volume 500 to be dropped down to 450, FiO2 40% to be dropped down to 30%, PEEP of 5. Blood gases show a PO2 of 152, pCO2 of 36, pH is 7.39. This blood gas is consistent with hyperoxia and normal acid-base status. 0.9 is running at 20 mL an hour, propofol at 40 mcg/kg per minute and norepinephrine at 7 mcg/minute. The patient will need a triple-lumen catheter and Art line. In addition, we will need to start the patient on tube feeds. I also ask Cardiology to see the patient. LABORATORY DATA: Includes a white count of 12.2, hemoglobin 14.8, hematocrit 44.5, platelet count 190,000, sodium 135, potassium 4.5, chloride 106, CO2 of 16, anion gap is a bit wide at 13, BUN and creatinine were 19 and 1.32, glucose 152. Troponins were mildly elevated at 0.106 and 0.933. CK was 709. Albumin 3.7. Brain CT was negative for anything acute. Chest x-ray shows increased cardiac silhouette. Costophrenic angles are free of fluid. There is device noted. Endotracheal tube is above the tracheal john. Lung quiroga are relatively clear otherwise. Medications will be reviewed. ASSESSMENT: 1. Mental status changes, thought to be related to underlying sepsis. 2. Rule out myocardial ischemia. 3. Acute hypoxemic respiratory failure, requiring intubation and mechanical ventilation on June 05. 4. History of coronary artery disease. 5. History of angina pectoris. 6. Diabetes mellitus. 7. Fibromyalgia. 8. Deafness. 9. Hyperlipidemia. 10.Hypertension. 11.Myocardial infarction. 12.Status post AICD placement. 13.Status post AAA repair. 14.Status post cardiac catheterization with stent placement. PLAN: The patient's medications are reviewed. Please see my orders. Will put an Art line in and a central line in. Will have Cardiology see the patient. Will start tube feeds. Will make sure he is on appropriate antibiotics. I believe he received 1 dose of ceftriaxone in the emergency room. Will continue that. Overall prognosis remains guarded. MMODL / IJN: [id number] /
[2019-06-06] MEDS: IPRATROPIUM-ALBUTEROL 3 ML NEB INHALATION SCH ×5 (11:07→22:52)
--- NOTE | 2019-06-06 11:24 | PCN ---
PROCEDURE NOTE PROCEDURE: Right radial art line placement. PREOPERATIVE DIAGNOSIS: Septic shock. POSTOPERATIVE DIAGNOSIS: Septic shock. A time-out was completed verifying correct patient, procedure, site, positioning, and implant(s) or special equipment if applicable. Derick's test was performed to ensure adequate perfusion. The patient's right wrist was prepped and draped in sterile fashion. 1% Lidocaine was used to anesthetize the area. An 18G Arrow arterial line was introduced into the right radial artery. The catheter was threaded over the guide wire and the needle was removed with appropriate pulsatile blood return. Blood loss was minimal. The catheter was then sutured in place to the skin and a sterile dressing applied. Perfusion to the extremity distal to the point of catheter insertion was checked and found to be adequate. The patient tolerated the procedure well and there were no complications. Procedure was tolerated very well. No immediate complications and good waveform were noted. Line was flushed and sutured in place and sterile dressing was applied by the nursing staff. MMODL / IJN: [id number] /
--- NOTE | 2019-06-06 11:24 | PCN ---
PROCEDURE NOTE PROCEDURE: Left femoral vein triple-lumen catheter. PREOPERATIVE DIAGNOSIS: Administration of fluids and pressors. POSTOPERATIVE DIAGNOSIS: Administration of fluids and pressors. OPERATORS: Dr. Haley, Dr. Hall and Jose Berrios There was informed consent and universal timeout. After the patient was properly prepared, the right femoral vein was accessed. The catheter was placed in the standard fashion. A time-out was completed verifying correct patient, procedure, site, positioning, and implant(s) or special equipment if applicable. The patient was placed in a dependent position appropriate for triple lumen catheter placement based on the vein to be cannulated. The patient's left groin was prepped and draped in sterile fashion. 1% Lidocaine was used to anesthetize the surrounding skin area. A triple lumen 9F Cordis catheter was introduced into the left common femoral vein using Seldinger technique. The catheter was threaded smoothly over the guide wire and appropriate blood return was obtained. Each lumen of the catheter was evacuated of air and flushed with sterile saline. The catheter was then sutured in place to the skin and a sterile dressing applied. Perfusion to the extremity distal to the point of catheter insertion was checked and found to be adequate. There was no immediate complication, there was good blood return from all 3 ports. A chest x-ray is not necessary given the location of the insertion of the catheter in the left femoral space. The catheter was sutured in place. Sterile dressing applied by the nurse. There was no immediate complication. The patient tolerated the procedure well. MMODL / IJN: [id number] /
[2019-06-06 11:27] LABS: Glucose,Whole Blood 141 mg/dL (75-99)
[2019-06-06] MEDS ORDERED: CISATRACURIUM 2 MG/ML 5 ML VIAL IV ONE (11:39)
--- NOTE | 2019-06-06 17:44 | P.PN ---
Subjective Chart was reviewed. History is very limited as patient is currently intubated and sedated. I tried to contact his son we have the phone number listed in the chart but the phone seems disconnected. Most of the history obtained from the chart and the encounter that are admitting physician and with the patient. Apparently patient was brought to the emergency department by his son due to worsening lethargy. There was no any mentioning of the fever, chills, malaise or any particular illness. Patient has history of normal pressure hydrocephalus, coronary artery disease, AICD, chronic systolic CHF. Chart review showing MSSA bacteremia in 2015 w ithout clear-cut source, appears to be treated with oral antibiotics at discharge. Chart also shows presence of hydrocephalus that was attributed to normal pressure hydrocephalus. I do not have any notes from neurology but symptoms that per some notes in the chart he was referred to outpatient neurology evaluation. Also chart showing that patient has history of ascending and descending aortic aneurysms. Baseline functional status of this patient is not known to me at this time. So patient was brought to emergency department with complaint of lethargy but without any focal symptoms. His viable cell count was 12.2 and he was afebrile. Apparently he was confused and agitated receive some sedating medications after which he is confusion and agitation worsen develop circular respiratory distress and had to be intubated. Subsequently code stroke was called and he underwent evaluation with a CT of the head 2 to both showed chronic changes with any acute findings. CT angiogram of the head that was also without any acute findings only with some carted atheromatosis disease. UA was notable for pyuria positive [place] esterase but 3 urea nitrates hence patient was started on ceftriaxone and transferred to intensive care unit. Objective - Vital Signs Vital signs: Vital Signs Temp 98.3 F 06/06/19 16:00 Pulse 50 L 06/06/19 16:00 Resp 20 06/06/19 16:00 BP 123/71 06/06/19 16:00 Pulse Ox 99 06/06/19 16:00 Intake & Output 06/05/19 06/06/19 06/06/19 18:59 06:59 18:59 Intake Total 974.854 1434.289 Output Total 1772 220 Balance -1482.540 974.289 Weight 91.626 kg 91.4 kg 91.4 kg Intake: Intake, IV Titration 886.420 0254.289 Amount Magnesium Sulfate-D5w Pmx 200 1 gm In Dextrose/Water 1 100ml.bag @ 100 mls/hr IVPB Q1H [facility] Rx#: [id number] Norepinephrine 4 mg In 29.600 177.020 Sodium Chloride 0.9% 250 ml @ 0.05 MCG/KG/MIN 17. 412 mls/hr IV .[id number] [facility] Rx#:[id number] Propofol 1,000 mg In 8.891 Empty Bag 1 bag @ Titrate IV .Q0M [facility] Rx#: [id number] Propofol 1,000 mg In 10.969 267.269 Empty Bag 1 bag @ Titrate IV .Q0M [facility] Rx#: [id number] Sodium Chloride 0.9% 1, 240 500 000 ml @ 20 mls/hr IV . Q24H [facility] Rx#:[id number] cefTRIAXone 1 gm In 50 Sodium Chloride 0.9% 50 ml @ 100 mls/hr IVPB [facility] Rx#:[id number] Output: Gastric Drainage 125 Urine 1645 220 Stool 2 Other: Voiding Method Indwelling Catheter Indwelling Catheter ABP, PAP, CO, CI - Last Documented Arterial Blood Pressure 137/47 - Exam Vital Signs: I have reviewed the vital signs. GENERAL: Patient is intubated and sedated Eyes: clear conjunctiva Head: : Atraumatic external nose and ears Neck: Symmetric, trachea midline, No thyromegaly, no masses or neck vain pulsation, no neck rigidity CVS: +S1/S2, No murmurs or gallops. Peripheral pulses 2+ and equal in all extremities. RESP: Unlabored respiratory effort. Clear to auscultation bilaterally. Abdomen: Bowel sounds present in all 4 quadrants, Soft to palpation, Nontender/Nondistended, No hepatosplenomegaly, no hernias or masses, no CVA tnderness Musculoskeletal: Extremities w/o deformity, No cyanosis or clubbing, no joint swelling Skin: Warm, Dry. No rashes or lesions Neuro: Withdraws from nociceptive stimuli: Plantar is echo vocal: No ankle clonus, no facial asymmetry - Labs CBC & Chem 7: 06/06/19 05:08 06/06/19 05:08 Labs: Abnormal Lab Results - Last 24 Hours (Table) 06/05/19 06/05/19 06/05/19 Range/Units 16:48 16:48 17:28 WBC (3.8-10.6) k/uL Neutrophils # (1.3-7.7) k/uL ABG pO2 (83-108) mmHg ABG HCO3 (21-25) mmol/L ABG O2 Saturation (94-97) % Sodium (137-145) mmol/L Potassium 5.2 H (3.5-5.1) mmol/L Carbon Dioxide (22-30) mmol/L BUN 22 H (9-20) mg/dL Creatinine (0.66-1.25) mg/dL Glucose 153 H (74-99) mg/dL POC Glucose (mg/dL) (75-99) mg/dL Total Bilirubin 1.4 H (0.2-1.3) mg/dL AST 63 H (17-59) U/L Creatine Kinase (55-170) U/L Troponin I 0.069 H* (0.000-0.034) ng/mL Total Protein 8.6 H (6.3-8.2) g/dL Urine Protein 3+ H (Negative) Urine Blood Small H (Negative) Ur Leukocyte Esterase Large H (Negative) Urine WBC 47 H (0-5) /hpf Urine Bacteria Rare H (None) /hpf Urine Mucus Rare H (None) /hpf 06/05/19 06/05/19 06/05/19 Range/Units 20:10 23:23 23:35 WBC (3.8-10.6) k/uL Neutrophils # (1.3-7.7) k/uL ABG pO2 186 H (83-108) mmHg ABG HCO3 20 L (21-25) mmol/L ABG O2 Saturation 99.4 H (94-97) % Sodium (137-145) mmol/L Potassium (3.5-5.1) mmol/L Carbon Dioxide (22-30) mmol/L BUN (9-20) mg/dL Creatinine (0.66-1.25) mg/dL Glucose (74-99) mg/dL POC Glucose (mg/dL) 159 H (75-99) mg/dL Total Bilirubin (0.2-1.3) mg/dL AST (17-59) U/L Creatine Kinase (55-170) U/L Troponin I 0.106 H* (0.000-0.034) ng/mL Total Protein (6.3-8.2) g/dL Urine Protein (Negative) Urine Blood (Negative) Ur Leukocyte Esterase (Negative) Urine WBC (0-5) /hpf Urine Bacteria (None) /hpf Urine Mucus (None) /hpf 06/05/19 06/06/19 06/06/19 Range/Units 23:35 01:58 05:08 WBC 12.2 H (3.8-10.6) k/uL Neutrophils # 9.1 H (1.3-7.7) k/uL ABG pO2 (83-108) mmHg ABG HCO3 (21-25) mmol/L ABG O2 Saturation (94-97) % Sodium (137-145) mmol/L Potassium (3.5-5.1) mmol/L Carbon Dioxide (22-30) mmol/L BUN (9-20) mg/dL Creatinine (0.66-1.25) mg/dL Glucose (74-99) mg/dL POC Glucose (mg/dL) 153 H (75-99) mg/dL Total Bilirubin (0.2-1.3) mg/dL AST (17-59) U/L Creatine Kinase 709 H (55-170) U/L Troponin I (0.000-0.034) ng/mL Total Protein (6.3-8.2) g/dL Urine Protein (Negative) Urine Blood (Negative) Ur Leukocyte Esterase (Negative) Urine WBC (0-5) /hpf Urine Bacteria (None) /hpf Urine Mucus (None) /hpf 06/06/19 06/06/19 06/06/19 Range/Units 05:08 05:08 05:34 WBC (3.8-10.6) k/uL Neutrophils # (1.3-7.7) k/uL ABG pO2 152 H (83-108) mmHg ABG HCO3 (21-25) mmol/L ABG O2 Saturation 99.1 H (94-97) % Sodium 135 L (137-145) mmol/L Potassium (3.5-5.1) mmol/L Carbon Dioxide 16 L (22-30) mmol/L BUN (9-20) mg/dL Creatinine 1.32 H (0.66-1.25) mg/dL Glucose 152 H (74-99) mg/dL POC Glucose (mg/dL) (75-99) mg/dL Total Bilirubin (0.2-1.3) mg/dL AST (17-59) U/L Creatine Kinase (55-170) U/L Troponin I 0.933 H* (0.000-0.034) ng/mL Total Protein (6.3-8.2) g/dL Urine Protein (Negative) Urine Blood (Negative) Ur Leukocyte Esterase (Negative) Urine WBC (0-5) /hpf Urine Bacteria (None) /hpf Urine Mucus (None) /hpf 06/06/19 06/06/19 Range/Units 05:56 11:16 WBC (3.8-10.6) k/uL Neutrophils # (1.3-7.7) k/uL ABG pO2 (83-108) mmHg ABG HCO3 (21-25) mmol/L ABG O2 Saturation (94-97) % Sodium (137-145) mmol/L Potassium (3.5-5.1) mmol/L Carbon Dioxide (22-30) mmol/L BUN (9-20) mg/dL Creatinine (0.66-1.25) mg/dL Glucose (74-99) mg/dL POC Glucose (mg/dL) 145 H 141 H (75-99) mg/dL Total Bilirubin (0.2-1.3) mg/dL AST (17-59) U/L Creatine Kinase (55-170) U/L Troponin I (0.000-0.034) ng/mL Total Protein (6.3-8.2) g/dL Urine Protein (Negative) Urine Blood (Negative) Ur Leukocyte Esterase (Negative) Urine WBC (0-5) /hpf Urine Bacteria (None) /hpf Urine Mucus (None) /hpf Microbiology - Last 24 Hours (Table) 06/06/19 02:15 Gram Stain - Preliminary Sputum Sputum Culture - Preliminary 06/05/19 17:28 Urine Culture - Preliminary Urine,Voided Assessment and Plan Assessment: Assessment 1. Acute toxic metabolic encephalopathy 2. SIRS rule out sepsis 3. Acute hypoxic respiratory failure requiring intubation and mechanical ventilation 4. 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 History of MSSA bacteremia 6. History of aortic thoracic aneurysm 7. Coronary artery disease with elevated troponin 8. Chronic systolic congestive heart failure This is a 53-year-old male with multiple medical problems and comorbidities who presents with nonspecific complaints of alteration in mental status in form of lethargy subsequently intubated and sedated. No focal complaints or symptoms were extracted. Urinalysis shows signs of urinary tract infection any history to don't ceftriaxone. Previous microbiology did not show any particular urinary pathogen. From our standpoint we will plan to obtain blood cultures, especially in the view the patient has history of MSSA bacteremia in the past. Patient will need septic workup. Obtain influenza screen Evaluate home medications and discontinue any medication is sedating effects Evaluate with family when available any potential history of drinking or substance abuse We'll try to reach the family, patient sent to obtain more information regarding patient illness. Quite possible that patient instead of NPH might have some sort of a other neurodegenerative disease with progression and we will need to get more information from the patient's son. Patient has an elevated troponin and we will consult cardiology for this as well.
[2019-06-06 18:03] LABS: Glucose,Whole Blood 142 mg/dL (75-99)
[2019-06-06] MEDS: SODIUM CHLORIDE 0.9% 1,000 ML IV SCH (18:31)
[2019-06-06 18:55] LABS: Calcium 8.1 mg/dL (8.4-10.2); Potassium 3.6 mmol/L (3.5-5.1)
[2019-06-06] MEDS: CHLORHEXIDINE GLUCONATE 15 ML CUP MUCOUS MEM SCH (21:05)
[2019-06-06] MEDS: ASPIRIN 81 MG PO SCH (21:06)
[2019-06-07 00:17] LABS: Glucose,Whole Blood 141 mg/dL (75-99)
[2019-06-07] MEDS: INSULIN ASPART (NovoLOG) 100 UNIT/ML VIAL SQ SCH ×4 (00:42→18:27)
[2019-06-07] MEDS: IPRATROPIUM-ALBUTEROL 3 ML NEB INHALATION SCH ×6 (03:01→22:53)
[2019-06-07 04:41] LABS: ABG Base Excess -2.7 mmol/L; ABG HCO3 23 mmol/L (21-25); ABG Oxygen Saturation 98.7 % (94-97); ABG PCO2 39 mmHg (35-45); ABG PH 7.37 (7.35-7.45); ABG PO2 116 mmHg (83-108); ABG TCO2 24 mmol/L (19-24)
[2019-06-07] MEDS: SODIUM CHLORIDE 0.9% 1,000 ML IV SCH ×2 (04:58→10:44)
[2019-06-07 05:23] LABS: Allen Test Performed? no
[2019-06-07 05:36] LABS: Magnesium 2.2 mg/dL (1.6-2.3); Potassium 3.4 mmol/L (3.5-5.1)
[2019-06-07] MEDS: PROPOFOL 1,000 MG in EMPTY BAG 1 BAG IV SCH ×5 (05:41→22:24)
[2019-06-07 05:57] LABS: Glucose,Whole Blood 92 mg/dL (75-99)
[2019-06-07] MEDS: POTASSIUM BICARBONATE/CIT AC 20 MEQ TABLET.EFF NG-TUBE SCH ×2 (06:39→08:11)
[2019-06-07 07:17] LABS: HCT 26.4 % (39.0-53.0); MCH 32.3 pg (25.0-35.0); MCV 97.8 fL (80.0-100.0); Mean Platelet Volume 8.5; Platelet Count 101 k/uL (150-450); RDW 13.9 % (11.5-15.5); WBC 4.8 k/uL (3.8-10.6)
--- NOTE | 2019-06-07 07:41 | XR ---
EXAMINATION TYPE: XR chest 1V portable DATE OF EXAM: 06/07/2019 Comparison: 06/06/2019 Clinical History: 83-year-old male Tube placement Findings: Left anterior chest wall AICD generator with right atrial and right ventricular leads. ET tube tip ju st beyond the medial clavicular heads. NG tube courses below the diaphragm. Heart mildly enlarged. So me mild patchy bibasilar opacities similar to slightly increased. Endovascular aortic valve replaceme nt. Impression: 1. Stable mild cardiomegaly. 2. Slightly increased patchy bibasilar areas of atelectasis favored over patchy infiltrates.
[2019-06-07 07:47] LABS: HGB 8.7 gm/dL (13.0-17.5)
[2019-06-07] MEDS: PANTOPRAZOLE 40 MG/10 ML VIAL IV SCH (08:10)
[2019-06-07] MEDS: CHLORHEXIDINE GLUCONATE 15 ML CUP MUCOUS MEM SCH ×2 (08:11→20:44)
[2019-06-07] MEDS: APIXABAN 2.5 MG TABLET PO SCH ×2 (08:11→20:45)
[2019-06-07 08:45] LABS: Lymphocytes # (M) 0.91 k/uL (1.0-4.8); Monocytes # (M) 0.24 k/uL (0-1.0); Neutrophils # (M) 3.55 k/uL (1.3-7.7); Neutrophils % (M) 74 %; Nucleated Red Blood Cells 0 /100 WBC (0-0); Total Cells Counted 100
[2019-06-07] MEDS: NOREPINEPHRINE 4 MG in SODIUM CHLORIDE 0.9% 250 ML IV SCH (09:16)
[2019-06-07 09:41] LABS: Basophils % (A) 0 %; Eosinophils # (A) 0.2 k/uL (0-0.7); Eosinophils % (A) 3 %; HCT 38.6 % (39.0-53.0); Lymphocytes % (A) 15 %; MCH 31.5 pg (25.0-35.0); MCHC 32.6 g/dL (31.0-37.0); MCV 96.5 fL (80.0-100.0); Mean Platelet Volume 8.3; Monocytes # (A) 0.6 k/uL (0-1.0); Monocytes % (A) 9 %; Neutrophils # (A) 4.7 k/uL (1.3-7.7); Neutrophils % (A) 70 %; Platelet Count 142 k/uL (150-450); RDW 13.9 % (11.5-15.5); WBC 6.7 k/uL (3.8-10.6)
[2019-06-07 09:51] LABS: HGB 12.6 gm/dL (13.0-17.5)
--- NOTE | 2019-06-07 10:48 | P.PN ---
Subjective Progress Note Date: 06/07/19 This is a 82-year-old gentleman with history of multivessel PCI and also to have her for aortic stenosis. Patient also had a dual-chamber ICD. Patient had an episode of sepsis and was transferred to [facility] in the past. There was question of possible endocarditis. At that time patient had a CANDE examination and also had negative blood cultures at [facility], and the possibility of endocarditis was ruled out. Patient also had replacement of the face device in 2018. This time, patient is admitted to the hospital again with altered mental status. Patient became agitated and unresponsive requiring intubation in the emergency room. It is presumed that patient has UTI and possible sepsis and is being treated for right. Patient is currently intubated and unresponsive. His rhythm seems to be sinus. Since admission but currently is atrial paced. Chest x-ray did not reveal any acute findings of CHF or pneumonia. His CBC showed a mild white count elevation. His creatinine is 1.3 to. There are abnormal troponin values which most probably is related to sepsis breath and acute myocardial injury. We'll get an echocardiogram to assess LV function. Further recommendation will depend upon the clinical course 06/07: Patient remains in intensive care unit currently intubated and on mechanical ventilation. Patient has been hypertensive 181/70 and currently being weaned off different than with possible extubation later today. Patient's cardiac rhythm has been a sinus rhythm with paced rhythm intermittently. Heart rate is currently at 61, pulse ox 100%. Potassium is 3.4 has been replaced. Objective - Vital Signs Vital signs: Vital Signs Temp 97.7 F 06/07/19 08:00 Pulse 51 L 06/07/19 10:00 Resp 16 06/07/19 10:00 BP 130/102 06/07/19 10:00 Pulse Ox 98 06/07/19 10:00 Intake & Output 06/06/19 06/07/19 06/07/19 18:59 06:59 18:59 Intake Total 5522.993 8059.938 722.039 Output Total 305 420 195 Balance 9630.251 6497.938 527.039 Weight 91.4 kg Intake: Intake, IV Titration 5382.960 2122.938 492.039 Amount Magnesium Sulfate-D5w Pmx 200 1 gm In Dextrose/Water 1 100ml.bag @ 100 mls/hr IVPB Q1H [facility] Rx#: [id number] Norepinephrine 4 mg In 177.020 Sodium Chloride 0.9% 250 ml @ 0.05 MCG/KG/MIN 17. 412 mls/hr IV .[id number] [facility] Rx#:[id number] Propofol 1,000 mg In 267.269 189.938 92.039 Empty Bag 1 bag @ Titrate IV .Q0M [facility] Rx#: [id number] Sodium Chloride 0.9% 1, 300 1100 350 000 ml @ 100 mls/hr IV . Q10H [facility] Rx#:[id number] Sodium Chloride 0.9% 1, 500 000 ml @ 20 mls/hr IV . Q24H [facility] Rx#:[id number] cefTRIAXone 1 gm In 50 Sodium Chloride 0.9% 50 ml @ 100 mls/hr IVPB ONCE STA Rx#:[id number] cefTRIAXone 1 gm In 100 50 Sodium Chloride 0.9% 50 ml @ 100 mls/hr IVPB Q12HR [facility] Rx#:[id number] Tube Feeding 60 360 170 Other 90 60 Output: Urine 305 420 195 Other: Voiding Method Indwelling Catheter Indwelling Catheter Indwelling Catheter ABP, PAP, CO, CI - Last Documented Arterial Blood Pressure 165/67 - Exam GENERAL EXAM: Patient is intubated and sedated HEENT: Normocephalic. Oral ET and gastric tube in place. Oral mucous membranes moist. Right-sided eye prosthesis. NECK: No masses, no nuchal rigidity. CHEST: No chest wall deformity. LUNGS: Diminished breath sounds HEART: S1 and S2 normal. No murmurs could be appreciated ABDOMEN: No hepatosplenomegaly, normal bowel sounds, no guarding or rigidity. SKIN: No rashes CENTRAL NERVOUS SYSTEM: Patient sedated and being weaned off sedation. Patient will open left eye. EXTREMITIES: No cyanosis, clubbing or edema. - Labs CBC & Chem 7: 06/07/19 09:10 06/07/19 04:40 Labs: Abnormal Lab Results - Last 24 Hours (Table) 06/06/19 06/06/19 06/06/19 Range/Units 11:16 18:01 18:27 RBC (4.30-5.90) m/uL Hgb (13.0-17.5) gm/dL Hct (39.0-53.0) % Plt Count (150-450) k/uL Lymphocytes # (Manual) (1.0-4.8) k/uL ABG pO2 (83-108) mmHg ABG O2 Saturation (94-97) % Potassium (3.5-5.1) mmol/L Chloride 109 H (98-107) mmol/L Carbon Dioxide (22-30) mmol/L Creatinine 1.40 H (0.66-1.25) mg/dL Glucose 144 H (74-99) mg/dL POC Glucose (mg/dL) 141 H 142 H (75-99) mg/dL Calcium 8.1 L (8.4-10.2) mg/dL 06/07/19 06/07/19 06/07/19 Range/Units 00:05 04:40 04:40 RBC 2.70 L (4.30-5.90) m/uL Hgb 8.7 L D (13.0-17.5) gm/dL Hct 26.4 L (39.0-53.0) % Plt Count 101 L (150-450) k/uL Lymphocytes # (Manual) 0.91 L (1.0-4.8) k/uL ABG pO2 (83-108) mmHg ABG O2 Saturation (94-97) % Potassium 3.4 L (3.5-5.1) mmol/L Chloride 111 H (98-107) mmol/L Carbon Dioxide 21 L (22-30) mmol/L Creatinine (0.66-1.25) mg/dL Glucose 120 H (74-99) mg/dL POC Glucose (mg/dL) 141 H (75-99) mg/dL Calcium 8.0 L (8.4-10.2) mg/dL 06/07/19 06/07/19 Range/Units 04:41 09:10 RBC 4.00 L (4.30-5.90) m/uL Hgb 12.6 L D (13.0-17.5) gm/dL Hct 38.6 L (39.0-53.0) % Plt Count 142 L (150-450) k/uL Lymphocytes # (Manual) (1.0-4.8) k/uL ABG pO2 116 H (83-108) mmHg ABG O2 Saturation 98.7 H (94-97) % Potassium (3.5-5.1) mmol/L Chloride (98-107) mmol/L Carbon Dioxide (22-30) mmol/L Creatinine (0.66-1.25) mg/dL Glucose (74-99) mg/dL POC Glucose (mg/dL) (75-99) mg/dL Calcium (8.4-10.2) mg/dL Microbiology - Last 24 Hours (Table) 06/05/19 17:28 Urine Culture - Final Urine,Voided 06/06/19 02:15 Gram Stain - Preliminary Sputum Sputum Culture - Preliminary Assessment and Plan Plan: Assessment: Acute metabolic encephalopathy secondary to sepsis Acute hypoxic respiratory failure requiring intubation mechanical ventilation History of coronary artery disease with elevated troponins, acute coronary s yndrome ruled out. Chronic systolic heart failure Diabetes mellitus type 2 History of AICD Aortic stenosis Plan: Continue eliquis and aspirin Monitor electrolytes Monitor blood pressure closely at anticipate that her blood pressure will improve after extubation. Obtain 2-D echocardiogram and Doppler study to assess cardiac structure and function Further recommendations to follow based upon clinical course Nurse Practitioner note has been reviewed, I agree with a documented findings and plan of care. Patient was seen and examined.
[2019-06-07 11:49] LABS: Glucose,Whole Blood 153 mg/dL (75-99)
--- NOTE | 2019-06-07 12:40 | PN ---
PROGRESS NOTE PULMONARY/CRITICAL CARE PROGRESS NOTE: DATE OF SERVICE: 06/07/2019 This is an 83-year-old gentleman who I saw yesterday in consultation. The patient was admitted on June 05. He apparently was initially seen in the emergency department for mental status changes. He apparently not been feeling well for a couple days prior to admission. He was initially thought to be a code stroke. More recently, he was seen by the ER physician and the mental status changes were thought primarily related to sepsis and urinary tract infection. The patient did not improve while down in the emergency room and his airway was at risk and so the patient was intubated electively by Dr. Hadley. The patient remains on the ventilator. Not much history could be obtained yesterday or today. He is currently on the volume assist-control mode, rate of 16, tidal volume 450, FiO2 of 30%, PEEP of 5. Blood gases show a pO2 of 116, pCO2 of 39, pH of 7.37. The patient is currently on propofol at 40 mcg/kg per minute, saline at 100 mL an hour and Vital high-protein at a rate of 30 with a goal of 52 mL/hour. We do want to attempt a daily interruption of sedation and spontaneous breathing trial today. The patient will be placed on PSV 5 and CPAP of 5 when he is fully awake. He had an uneventful night. Gas exchange is good. Blood pressure is stable. Current vital signs are reviewed. Temperature is 97.7, heart rate 60, respiratory rate 16, blood pressure 130/102. Mean 111, saturations are 98%. Repeat blood pressure 165/67. Currently sedated. HEENT: Examination is grossly unremarkable. There is an orally placed endotracheal tube and NG tube. NECK: Supple. Full range of motion. No adenopathy. Neck veins are flat. CARDIOVASCULAR: Examination reveals regular rhythm and rate. Heart rate about 60 beats per minute. S1, S2 normal. Heart sounds are distant. LUNGS: Reveal diffuse coarse rhonchi. No wheezes or crackles. Breath sounds equal. ABDOMEN: Soft. Bowel sounds are heard. No tenderness. EXTREMITIES: Intact. Minimal edema. SKIN: Without rash. NEUROLOGIC: Examination cannot be assessed properly. Microbiologic studies thus far negative. LABS: Reviewed. White count 6.7, hemoglobin 12.6, hematocrit 38.6, platelet count 142,000, sodium 137, potassium 3.4, chloride is 111, CO2 is 21, anion gap is 5. BUN and creatinine were 18 and 1.14. Calcium is 8.0. Influenza studies were negative. Chest x-ray done on 06/07 reveals some cardiomegaly and some bibasilar patchy atelectasis versus infiltrate. Current medications are reviewed. ASSESSMENT: 1. Mental status changes, felt to be related to underlying sepsis. 2. Rule out myocardial ischemia. 3. Acute hypoxemic respiratory failure, and inability to protect his airway, requiring intubation and mechanical ventilation on June 05. 4. History of coronary artery disease. 5. History of angina pectoris. 6. Diabetes mellitus. 7. Fibromyalgia. 8. Deafness. 9. Hyperlipidemia. 10.Hypertension. 11.Myocardial infarction. 12.Status post AICD placement. 13.Status post AAA repair. 14.Status post cardiac catheterization with stent placement. PLAN: Currently, the patient appears to be relatively stable. So far microbiology is negative. He is on antibiotics in form of Rocephin. We will go ahead and give him a daily interruption of sedation and potentially a spontaneous breathing trial. He may or may not be ready for extubation. Again, culture data is all negative. Laboratory data is reviewed. Influenza studies are negative. Will continue to follow. Troponins were a bit elevated. Cardiology was consulted. Drug screen was negative. Critical care time is 34 minutes. MMMADAIL / IJN: [id number] /
--- NOTE | 2019-06-07 13:22 | P.PN ---
Subjective Summary: History is very limited as patient is currently intubated and sedated. I Spoke with family today. Only complain was confusion and agitation worsening over 2 days. no fever, GALVAN, nausea or vomiting or focal pain. Per family this is commom for the patient when getting infection. He has similar process in the past. Apparently patient was brought to the emergency department by his son due to worsening lethargy. Patient has history of normal pressure hydrocephalus, coronary artery disease, AICD, chronic systolic CHF. Chart review showing MSSA bacteremia in 2015 without clear-cut source, appears to be treated with oral antibiotics at discharge. Chart also shows presence of hydrocephalus that was attributed to normal pressure hydrocephalus. I do not have any notes from neurology but symptoms that per some notes in the chart he was referred to outpatient neurology evaluation. Also chart showing that patient has history of ascending and descending aortic aneurysms. Baseline functional status of this patient is not known to me at this time. So patient was brought to emergency department with complaint of lethargy but without any focal symptoms. His viable cell count was 12.2 and he was afebrile. Apparently he was confused and agitated receive some sedating medications after which he is confusion and agitation worsen develop circular respiratory distress and had to be intubated. Subsequently code stroke was called and he underwent evaluation with a CT of the head 2 to both showed chronic changes with any acute findings. CT angiogram of the head that was also without any acute findings only with some carted atheromatosis disease. UA was notable for pyuria positive leuk esterase and nitrates hence patient was started on ceftriaxone and transferred to intensive care unit. Interval: agitated when tried to be extubated. no other events Objective - Vital Signs Vital signs: Vital Signs Temp 98 F 06/07/19 12:00 Pulse 51 L 06/07/19 12:00 Resp 20 06/07/19 12:00 BP 122/60 06/07/19 12:00 Pulse Ox 98 06/07/19 12:00 Intake & Output 06/06/19 06/07/19 06/07/19 18:59 06:59 18:59 Intake Total 0982.985 0896.938 1143.331 Output Total 305 420 275 Balance 1914.457 1388.938 868.331 Weight 91.4 kg 95 kg Intake: Intake, IV Titration 8358.803 4951.938 763.331 Amount Magnesium Sulfate-D5w Pmx 200 1 gm In Dextrose/Water 1 100ml.bag @ 100 mls/hr IVPB Q1H [facility] Rx#: [id number] Norepinephrine 4 mg In 177.020 Sodium Chloride 0.9% 250 ml @ 0.05 MCG/KG/MIN 17. 412 mls/hr IV .[id number] [facility] Rx#:[id number] Propofol 1,000 mg In 267.269 189.938 163.331 Empty Bag 1 bag @ Titrate IV .Q0M [facility] Rx#: [id number] Sodium Chloride 0.9% 1, 300 1100 550 000 ml @ 100 mls/hr IV . Q10H [facility] Rx#:[id number] Sodium Chloride 0.9% 1, 500 000 ml @ 20 mls/hr IV . Q24H [facility] Rx#:[id number] cefTRIAXone 1 gm In 50 Sodium Chloride 0.9% 50 ml @ 100 mls/hr IVPB ONCE STA Rx#:[id number] cefTRIAXone 1 gm In 100 50 Sodium Chloride 0.9% 50 ml @ 100 mls/hr IVPB Q12HR [facility] Rx#:[id number] Tube Feeding 60 360 290 Other 90 90 Output: Urine 305 420 275 Other: Voiding Method Indwelling Catheter Indwelling Catheter Indwelling Catheter ABP, PAP, CO, CI - Last Documented Arterial Blood Pressure 109/48 - Exam Vital Signs: I have reviewed the vital signs. GENERAL: Patient is intubated and sedated Eyes: clear conjunctiva Head: : Atraumatic external nose and ears Neck: Symmetric, trachea midline, No thyromegaly, no masses or neck vain pulsation, no neck rigidity CVS: +S1/S2, No murmurs or gallops. Peripheral pulses 2+ and equal in all extremities. RESP: Unlabored respiratory effort. Clear to auscultation bilaterally. Abdomen: Bowel sounds present in all 4 quadrants, Soft to palpation, Nontender/Nondistended, No hepatosplenomegaly, no hernias or masses, no CVA tnderness Musculoskeletal: Extremities w/o deformity, No cyanosis or clubbing, no joint swelling Skin: Warm, Dry. No rashes or lesions Neuro: Withdraws from nociceptive stimuli: Plantar is echo vocal: No ankle clonus, no facial asymmetry - Labs CBC & Chem 7: 06/07/19 09:10 06/07/19 04:40 Labs: Abnormal Lab Results - Last 24 Hours (Table) 06/06/19 06/06/19 06/07/19 Range/Units 18:01 18:27 00:05 RBC (4.30-5.90) m/uL Hgb (13.0-17.5) gm/dL Hct (39.0-53.0) % Plt Count (150-450) k/uL Lymphocytes # (Manual) (1.0-4.8) k/uL ABG pO2 (83-108) mmHg ABG O2 Saturation (94-97) % Potassium (3.5-5.1) mmol/L Chloride 109 H (98-107) mmol/L Carbon Dioxide (22-30) mmol/L Creatinine 1.40 H (0.66-1.25) mg/dL Glucose 144 H (74-99) mg/dL POC Glucose (mg/dL) 142 H 141 H (75-99) mg/dL Calcium 8.1 L (8.4-10.2) mg/dL 06/07/19 06/07/19 06/07/19 Range/Units 04:40 04:40 04:41 RBC 2.70 L (4.30-5.90) m/uL Hgb 8.7 L D (13.0-17.5) gm/dL Hct 26.4 L (39.0-53.0) % Plt Count 101 L (150-450) k/uL Lymphocytes # (Manual) 0.91 L (1.0-4.8) k/uL ABG pO2 116 H (83-108) mmHg ABG O2 Saturation 98.7 H (94-97) % Potassium 3.4 L (3.5-5.1) mmol/L Chloride 111 H (98-107) mmol/L Carbon Dioxide 21 L (22-30) mmol/L Creatinine (0.66-1.25) mg/dL Glucose 120 H (74-99) mg/dL POC Glucose (mg/dL) (75-99) mg/dL Calcium 8.0 L (8.4-10.2) mg/dL 06/07/19 06/07/19 Range/Units 09:10 11:37 RBC 4.00 L (4.30-5.90) m/uL Hgb 12.6 L D (13.0-17.5) gm/dL Hct 38.6 L (39.0-53.0) % Plt Count 142 L (150-450) k/uL Lymphocytes # (Manual) (1.0-4.8) k/uL ABG pO2 (83-108) mmHg ABG O2 Saturation (94-97) % Potassium (3.5-5.1) mmol/L Chloride (98-107) mmol/L Carbon Dioxide (22-30) mmol/L Creatinine (0.66-1.25) mg/dL Glucose (74-99) mg/dL POC Glucose (mg/dL) 153 H (75-99) mg/dL Calcium (8.4-10.2) mg/dL Microbiology - Last 24 Hours (Table) 06/05/19 17:28 Urine Culture - Final Urine,Voided 06/06/19 02:15 Gram Stain - Preliminary Sputum Sputum Culture - Preliminary Assessment and Plan Assessment: Assessment 1. Acute toxic metabolic encephalopathy 2. SIRS rule out sepsis 3. Acute hypoxic respiratory failure requiring intubation and mechanical ventilation 4. 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 History of MSSA bacteremia 6. History of aortic thoracic aneurysm 7. Coronary artery disease with elevated troponin 8. Chronic systolic congestive heart failure 9. [place] Continue current care and antibiotics. Blood cultures pending. urine cx NGTD
--- NOTE | 2019-06-07 13:45 | ECHOF ---
Referral Reason:LVF MEASUREMENTS -------- HEIGHT: 182.9 cm WEIGHT: 91.2 kg BP: RVIDd: 1.6 cm (< 3.3) IVSd: 1.5 cm (0.6 - 1.1) LVIDd: 5.5 cm (3.9 - 5.3) LVPWd: 1.2 cm (0.6 - 1.1) IVSs: 1.6 cm LVIDs: 5.0 cm LVPWs: 1.3 cm Ao Diam: 2.2 cm (2.0 - 3.7) AV Cusp: 1.6 cm (1.5 - 2.6) LA Diam: 3.6 cm (2.7 - 3.8) MV EXCURSION: 10.090 mm (> 18.000) MV EF SLOPE: 63 mm/s (70 - 150) EPSS: 2.4 cm MV E Fermin: 0.56 m/s MV DecT: 236 ms MV A Fermin: 0.63 m/s MV E/A Ratio: 0.90 RAP: 15.00 mmHg RVSP: 20.60 mmHg FINDINGS -------- Sinus rhythm. This was a technically difficult study with suboptimal views. Pt. on a vent. The left ventricular size is normal. There is mild concentric left ventricular hypertrophy. Overa ll left ventricular systolic function is severely impaired with, an EF between 25 - 30 %. Inferiorl ateral Hypokinesis The right ventricle is normal in size. The left atrial size is normal. The right atrial size is normal. The aortic valve is trileaflet and appears structurally normal. The mitral valve is normal. Mild mitral regurgitation is present. Cannot rule out vegetation. The tricuspid valve appears structurally normal. Mild tricuspid regurgitation present. Right vent ricular systolic pressure is normal at < 35 mmHg. There is no pulmonic regurgitation present. The aortic root size is normal. There is no pericardial effusion. CONCLUSIONS -------- 1. Sinus rhythm. 2. This was a technically difficult study with suboptimal views. 3. Pt. on a vent. 4. The left ventricular size is normal. 5. There is mild concentric left ventricular hypertrophy. 6. Overall left ventricular systolic function is severely impaired with, an EF between 25 - 30 %. 7. Inferiorlateral Hypokinesis 8. The right ventricle is normal in size. 9. The left atrial size is normal. 10. The right atrial size is normal. 11. The aortic valve is trileaflet and appears structurally normal. 12. The mitral valve is normal. 13. Mild mitral regurgitation is present. 14. Cannot rule out vegetation. 15. The tricuspid valve appears structurally normal. 16. Mild tricuspid regurgitation present. 17. Right ventricular systolic pressure is normal at < 35 mmHg. 18. There is no pulmonic regurgitation present. 19. The aortic root size is normal. 20. There is no pericardial effusion. APPRAISER LAND: Chrystal Frazier RDCS
[2019-06-07 18:30] LABS: Glucose,Whole Blood 150 mg/dL (75-99)
[2019-06-07] MEDS: ASPIRIN 81 MG PO SCH (20:44)
[2019-06-08] MEDS: NOREPINEPHRINE 4 MG in SODIUM CHLORIDE 0.9% 250 ML IV SCH (00:11)
[2019-06-08] MEDS: SODIUM CHLORIDE 0.9% 1,000 ML IV SCH ×3 (00:11→20:40)
[2019-06-08 00:14] LABS: Glucose,Whole Blood 160 mg/dL (75-99)
[2019-06-08] MEDS: INSULIN ASPART (NovoLOG) 100 UNIT/ML VIAL SQ SCH ×4 (00:15→17:52)
[2019-06-08] MEDS: PROPOFOL 1,000 MG in EMPTY BAG 1 BAG IV SCH ×3 (02:01→08:17)
[2019-06-08] MEDS: DOCUSATE 100 MG CAP PO SCH (02:02)
[2019-06-08] MEDS: IPRATROPIUM-ALBUTEROL 3 ML NEB INHALATION SCH ×5 (02:54→20:05)
[2019-06-08 04:10] LABS: ABG Base Excess -2.8 mmol/L; ABG HCO3 23 mmol/L (21-25); ABG Oxygen Saturation 98.6 % (94-97); ABG PCO2 40 mmHg (35-45); ABG PH 7.37 (7.35-7.45); ABG PO2 117 mmHg (83-108); ABG TCO2 24 mmol/L (19-24)
[2019-06-08 04:23] LABS: Basophils % (A) 0 %; Eosinophils # (A) 0.2 k/uL (0-0.7); Eosinophils % (A) 3 %; HCT 37.5 % (39.0-53.0); Lymphocytes # (A) 1.2 k/uL (1.0-4.8); Lymphocytes % (A) 17 %; MCH 31.4 pg (25.0-35.0); MCHC 32.1 g/dL (31.0-37.0); MCV 97.7 fL (80.0-100.0); Mean Platelet Volume 8.1; Monocytes # (A) 0.6 k/uL (0-1.0); Monocytes % (A) 8 %; Neutrophils # (A) 4.8 k/uL (1.3-7.7); Neutrophils % (A) 69 %; Platelet Count 148 k/uL (150-450); RBC 3.84 m/uL (4.30-5.90); RDW 13.9 % (11.5-15.5); WBC 6.9 k/uL (3.8-10.6)
[2019-06-08 04:33] LABS: Calcium 8.3 mg/dL (8.4-10.2); Potassium 3.7 mmol/L (3.5-5.1)
[2019-06-08 04:35] LABS: Allen Test Performed? no
[2019-06-08] MEDS ORDERED: POTASSIUM BICARBONATE/CIT AC 20 MEQ TABLET.EFF NG-TUBE SCH (06:00)
[2019-06-08 06:23] LABS: Glucose,Whole Blood 152 mg/dL (75-99)
--- NOTE | 2019-06-08 07:31 | XR ---
EXAMINATION TYPE: XR chest 1V portable DATE OF EXAM: 06/08/2019 Comparison: 06/07/2019 Clinical History: 83-year-old male Tube placement Findings: ET tube tip just beyond the medial clavicular heads. NG tube courses below the diaphragm. Left anteri or chest wall AICD generator with right atrial and right ventricular leads. Endovascular aortic valve replacement. Heart remains mildly enlarged. Pulmonary vasculature within normal limits. Some increasing patchy rig ht basilar opacity from prior exam. Similar mild patchy retrocardiac opacity, probably atelectasis. Impression: 1. Stable mild cardiomegaly. 2. Slight increasing patchy right basilar atelectasis versus infiltrate. 3. Stable stranding retrocardiac atelectasis.
[2019-06-08] MEDS ORDERED: FUROSEMIDE 10 MG/ML 4 ML VIAL IV STA (07:45)
[2019-06-08] MEDS: CHLORHEXIDINE GLUCONATE 15 ML CUP MUCOUS MEM SCH (08:17)
[2019-06-08] MEDS: APIXABAN 2.5 MG TABLET PO SCH ×2 (08:17→20:40)
[2019-06-08] MEDS: PANTOPRAZOLE 40 MG/10 ML VIAL IV SCH (08:17)
--- NOTE | 2019-06-08 09:35 | PN ---
PROGRESS NOTE PULMONARY/CRITICAL CARE PROGRESS NOTE: DATE OF SERVICE: June 08, 2019 This is an 83-year-old gentleman who was seen in consultation 2 days ago. The patient was admitted on June 05. He was initially seen in the emergency department for mental status changes. He apparently had not been feeling well for a couple days prior to admission. He was initially thought to be a CODE STROKE. More recently, he was seen by the ER physician and mental status changes were thought primarily related to sepsis and urinary tract infection. The patient did not improve while down in the emergency department and his airway was at risk according to the ER physician and the patient was electively intubated. This was done by Dr. Hadley. The patient remains on mechanical ventilator. Yesterday, we tried a daily interruption of sedation, but he was quite agitated and his mental status was poor. We placed him back on sedation. He is currently on the volume assist-control mode, rate of 2016, tidal volume 450, FiO2 30% to be dropped down to 25%, PEEP of 5. Blood gases show pO2 of 117, pCO2 of 40, pH of 7.37. Currently, the patient is on propofol at 50 mcg/kg per minute. The patient's IV is saline at 100 mL an hour to be turned down to 40 mL an hour. The patient is getting Vital high-protein at 52 with a goal of 52 mL an hour. Microbiology is thus far negative. He is way ahead fluid maya, the patient will get a 1 time dose of Lasix 40 mg IV push. After he gets the Lasix and see if he diureses, we will attempt another daily interruption of sedation. If he does not seem to improve, he may need further evaluation by Neurology or repeat CT scan or EEG. PHYSICAL EXAMINATION: VITAL SIGNS: Current vital signs are reviewed. Temperature 97.9, heart rate 56, respiratory rate 16, blood pressure 109/54. Mean 79. Saturations 98%. Appears in no acute distress. HEENT examination is grossly unremarkable. There is an orally placed endotracheal tube and NG tube. NECK: Supple. Full range of motion. No adenopathy. Neck veins are flat. CARDIOVASCULAR: Examination reveals regular rhythm and rate. Heart rate 60. LUNGS: Reveal coarse rhonchi. Breath sounds equal. No crackles or wheezes. ABDOMEN: Soft. Bowel sounds are heard. EXTREMITIES are intact. Mild edema. SKIN: Without rash. NEUROLOGIC: Examination is difficult given his current sedation with propofol. We will do a DIS. LAB DATA: Reviewed. White count 6.9, hemoglobin 12, hematocrit 37.5, platelet count 148,000. Blood gases have been noted. Sodium 139, potassium 3.7, chloride 112. CO2 22. Anion gap is 5. BUN and creatinine were 17 and 0.99. Calcium 8.3. Microbiology including blood, urine and sputum are all negative. Chest x-rays reviewed. It shows some cardiomegaly and some patchy infiltrates or atelectasis at the bases and retrocardiac area. I's and O's shows that he is way ahead in fluids. He will get Lasix 40 mg IV push today. Medications are reviewed. They were adjusted on a daily basis and reviewed on a daily basis. He is currently on updrafts and Lasix now. In addition, the patient is been placed on typical GI and DVT prophylaxis. The patient is on ceftriaxone empirically. ASSESSMENT: 1. Mental status changes, thought to be related to underlying sepsis. 2. Rule out myocardial ischemia. 3. Acute hypoxemic respiratory failure with inability to protect his airway, requiring intubation and mechanical ventilation on June 05. 4. History of coronary artery disease. 5. History of angina pectoris. 6. History of diabetes mellitus. 7. Fibromyalgia. 8. Deafness. 9. Hyperlipidemia. 10.Hypertension. 11.Myocardial infarction. 12.Status post AICD placement. 13.Status post AAA repair. 14.Status post cardiac catheterization with stent placement. PLAN: The patient will get another daily interruption of sedation/spontaneous breathing trial. Hopefully, he will do better today than yesterday. His IV fluids were turned down from 100 to 40 mL an hour. His FiO2 on machine is dropped from 30-25 percent. He continues on tube feeds and propofol. He gets Lasix 40 mg IV push. Microbiologic studies are thus far negative. We will continue to follow. Prognosis is guarded. CRITICAL CARE TIME: 32 minutes. MMODL / IJN: [id number] /
--- NOTE | 2019-06-08 09:44 | P.PN ---
Subjective Progress Note Date: 06/08/19 This is a 82-year-old gentleman with history of multivessel PCI and also to have her for aortic stenosis. Patient also had a dual-chamber ICD. Patient had an episode of sepsis and was transferred to [facility] in the past. There was question of possible endocarditis. At that time patient had a CANDE examination and also had negative blood cultures at [facility], and the possibility of endocarditis was ruled out. Patient also had replacement of the face device in 2018. This time, patient is admitted to the hospital again with altered mental status. Patient became agitated and unresponsive requiring intubation in the emergency room. It is presumed that patient has UTI and possible sepsis and is being treated for right. Patient is currently intubated and unresponsive. His rhythm seems to be sinus. Since admission but currently is atrial paced. Chest x-ray did not reveal any acute findings of CHF or pneumonia. His CBC showed a mild white count elevation. His creatinine is 1.3 to. There are abnormal troponin values which most probably is related to sepsis breath and acute myocardial injury. We'll get an echocardiogram to assess LV function. Further recommendation will depend upon the clinical course 06/07: Patient remains in intensive care unit currently intubated and on mechanical ventilation. Patient has been hypertensive 181/70 and currently being weaned off different than with possible extubation later today. Patient's cardiac rhythm has been a sinus rhythm with paced rhythm intermittently. Heart rate is currently at 61, pulse ox 100%. Potassium is 3.4 has been replaced. 06/08: Patient failed weaning attempt yesterday and remains intubated and on mechanical ventilation. Weaning to be attempted again today. He received IV L asix this morning and diuresing well. Blood pressure is improved, at time of exam 104/89, heart rate 62, afebrile. Hemoglobin is 12, platelet count 148, creatinine 0.99. Chest x-ray reveals stable mild cardiomegaly. Slight increased patchy basilar atelectasis versus infiltrate. Stable retrocardiac atelectasis. Echocardiogram reveals EF of 25-30%, mild concentric left hypertrophy, mild mitral regurgitation cannot rule out vegetation, mild tricuspid regurgitation, RVSP less than 35. Objective - Vital Signs Vital signs: Vital Signs Temp 97.9 F 06/08/19 08:00 Pulse 62 06/08/19 09:00 Resp 18 06/08/19 09:00 BP 109/64 06/08/19 08:00 Pulse Ox 99 06/08/19 09:00 Intake & Output 06/07/19 06/08/19 06/08/19 18:59 06:59 18:59 Intake Total 2170.511 2442.3 681.725 Output Total 510 555 540 Balance 1013.978 2534.3 141.725 Weight 95 kg 102.3 kg Intake: Intake, IV Titration 4924.527 8904.3 413.725 Amount Propofol 1,000 mg In 286.511 270.3 133.725 Empty Bag 1 bag @ Titrate IV .Q0M [facility] Rx#: [id number] Sodium Chloride 0.9% 1, 1150 1200 180 000 ml @ 40 mls/hr IV . Q24H [facility] Rx#:[id number] cefTRIAXone 1 gm In 50 50 100 Sodium Chloride 0.9% 50 ml @ 100 mls/hr IVPB Q12HR [facility] Rx#:[id number] Tube Feeding 594 832 208 Other 90 90 60 Output: Urine 510 555 540 Other: Voiding Method Indwelling Catheter Indwelling Catheter Indwelling Catheter ABP, PAP, CO, CI - Last Documented Arterial Blood Pressure 159/76 - Exam GENERAL EXAM: Patient is intubated and sedated HEENT: Normocephalic. Oral ET and gastric tube in place. Oral mucous membranes moist. Right-sided eye prosthesis. NECK: No masses, no nuchal rigidity. CHEST: No chest wall deformity. LUNGS: Diminished breath sounds HEART: Irregular S1 and S2 normal. No murmurs could be appreciated, cardiac mon itor sinus rhythm with occasional PVC ABDOMEN: No hepatosplenomegaly, normal bowel sounds, no guarding or rigidity. SKIN: No rashes CENTRAL NERVOUS SYSTEM: Patient sedated and being weaned off sedation. Patient will open left eye. EXTREMITIES: No cyanosis, clubbing or edema. - Labs CBC & Chem 7: 06/08/19 04:10 06/08/19 04:10 Labs: Abnormal Lab Results - Last 24 Hours (Table) 06/07/19 06/07/19 06/07/19 Range/Units 09:10 11:37 18:18 RBC 4.00 L (4.30-5.90) m/uL Hgb 12.6 L D (13.0-17.5) gm/dL Hct 38.6 L (39.0-53.0) % Plt Count 142 L (150-450) k/uL ABG pO2 (83-108) mmHg ABG O2 Saturation (94-97) % Chloride (98-107) mmol/L Glucose (74-99) mg/dL POC Glucose (mg/dL) 153 H 150 H (75-99) mg/dL Calcium (8.4-10.2) mg/dL 06/08/19 06/08/19 06/08/19 Range/Units 00:03 04:10 04:10 RBC 3.84 L (4.30-5.90) m/uL Hgb 12.0 L (13.0-17.5) gm/dL Hct 37.5 L (39.0-53.0) % Plt Count 148 L (150-450) k/uL ABG pO2 (83-108) mmHg ABG O2 Saturation (94-97) % Chloride 112 H (98-107) mmol/L Glucose 184 H (74-99) mg/dL POC Glucose (mg/dL) 160 H (75-99) mg/dL Calcium 8.3 L (8.4-10.2) mg/dL 06/08/19 06/08/19 Range/Units 04:10 06:11 RBC (4.30-5.90) m/uL Hgb (13.0-17.5) gm/dL Hct (39.0-53.0) % Plt Count (150-450) k/uL ABG pO2 117 H (83-108) mmHg ABG O2 Saturation 98.6 H (94-97) % Chloride (98-107) mmol/L Glucose (74-99) mg/dL POC Glucose (mg/dL) 152 H (75-99) mg/dL Calcium (8.4-10.2) mg/dL Microbiology - Last 24 Hours (Table) 06/06/19 02:15 Gram Stain - Final Sputum Sputum Culture - Final 06/06/19 11:18 Blood Culture - Preliminary Blood No Growth after 24 hours Assessment and Plan Plan: Assessment: Acute metabolic encephalopathy secondary to sepsis Acute hypoxic respiratory failure requiring intubation mechanical ventilation History of coronary artery disease with previous non-ST elevated myocardial infarction, restenosis of right circumflex status post stenting and stent in the RCA Elevated troponins, acute coronary syndrome ruled out. Ischemic cardiomyopathy status post AICD Chronic systolic heart failure with ejection fraction 25-30% Diabetes mellitus type 2 Possible mitral valve vegetation on echocardiogram ruled out as patient is without positive blood cultures. No need for further evaluation Aortic stenosis status post prosthetic aortic valve Plan: Continue eliquis and aspirin Monitor electrolytes Monitor blood pressure closely Further recommendations to follow based upon clinical course Nurse Practitioner note has been reviewed, I agree with a documented findings and plan of care. Patient was seen and examined.
--- NOTE | 2019-06-08 09:51 | P.PN ---
Subjective Summary: History is very limited as patient is currently intubated and sedated. I Spoke with family today. Only complain was confusion and agitation worsening over 2 days. no fever, GALVAN, nausea or vomiting or focal pain. Per family this is common for the patient when getting infection. He had similar process in the past. Apparently patient was brought to the emergency department by his son due to worsening lethargy. Patient has history of normal pressure hydrocephalus, coronary artery disease, AICD, chronic systolic CHF with EF of 15-20%. Chart review showing MSSA bacteremia in 2015 without clear-cut source, appears to be treated with oral antibiotics at discharge. Chart also shows presence of hydrocephalus that was attributed to normal pressure hydrocephalus. I do not have any notes from neurology but symptoms that per some notes in the chart he was referred to outpatient neurology evaluation. Also chart showing that patient has history of ascending and descending aortic aneurysms. Baseline functional status of this patient is not known to me at this time. So patient was brought to emergency department with complaint of lethargy but without any focal symptoms. His white cell count was 12.2 and he was afebrile. Apparently he was confused and agitated receive some sedating medications after which he is confusion and agitation worsen develop respiratory distress and had to be intubated. Subsequently code stroke was called and he underwent evaluation with a CT of the head 2 to both showed chronic changes with any acute findings. CT angiogram of the head that was also without any acute findings only with some carted atheromatosis disease. UA was notable for pyuria positive leuk esterase and nitrates hence patient was started on ceftriaxone and transferred to intensive care unit. Patient also had elevated troponin. Cardiology evaluated. Interval: No new events over night. Remains afebrile with stable VS. WBC normal today. IVF was decreased and started on lasix. CXR stable. FiO2 requiremnt decresed. He is planned for sedation holiday and possible extubation. Yesterday he was very agitated during sedation weaning. Objective - Vital Signs Vital signs: Vital Signs Temp 97.9 F 06/08/19 08:00 Pulse 62 06/08/19 09:00 Resp 18 06/08/19 09:00 BP 109/64 06/08/19 08:00 Pulse Ox 99 06/08/19 09:00 Intake & Output 01/04/20 01/05/20 01/05/20 18:59 06:59 18:59 Intake Total 2170.511 2442.3 681.725 Output Total 510 555 540 Balance 0668.272 5489.3 141.725 Weight 95 kg 102.3 kg Intake: Intake, IV Titration 1451.497 7822.3 413.725 Amount Propofol 1,000 mg In 286.511 270.3 133.725 Empty Bag 1 bag @ Titrate IV .Q0M [facility] Rx#: [id number] Sodium Chloride 0.9% 1, 1150 1200 180 000 ml @ 40 mls/hr IV . Q24H [facility] Rx#:[id number] cefTRIAXone 1 gm In 50 50 100 Sodium Chloride 0.9% 50 ml @ 100 mls/hr IVPB Q12HR [facility] Rx#:[id number] Tube Feeding 594 832 208 Other 90 90 60 Output: Urine 510 555 540 Other: Voiding Method Indwelling Catheter Indwelling Catheter Indwelling Catheter ABP, PAP, CO, CI - Last Documented Arterial Blood Pressure 159/76 - Exam Vital Signs: I have reviewed the vital signs. GENERAL: Patient is intubated and sedated Eyes: clear conjunctiva Head: : Atraumatic external nose and ears Neck: Symmetric, trachea midline, No thyromegaly, no masses or neck vain pulsati on, no neck rigidity CVS: +S1/S2, No murmurs or gallops. Peripheral pulses 2+ and equal in all extremities. RESP: Unlabored respiratory effort. Clear to auscultation bilaterally. Abdomen: Bowel sounds present in all 4 quadrants, Soft to palpation, Nontender/Nondistended, No hepatosplenomegaly, no hernias or masses, no CVA tnderness Musculoskeletal: Extremities w/o deformity, No cyanosis or clubbing, no joint swelling Skin: Warm, Dry. No rashes or lesions Neuro: Withdraws from nociceptive stimuli: Plantar is echo vocal: No ankle clonus, no facial asymmetry - Labs CBC & Chem 7: 06/08/19 04:10 06/08/19 04:10 Labs: Abnormal Lab Results - Last 24 Hours (Table) 06/07/19 06/07/19 06/07/19 Range/Units 09:10 11:37 18:18 RBC 4.00 L (4.30-5.90) m/uL Hgb 12.6 L D (13.0-17.5) gm/dL Hct 38.6 L (39.0-53.0) % Plt Count 142 L (150-450) k/uL ABG pO2 (83-108) mmHg ABG O2 Saturation (94-97) % Chloride (98-107) mmol/L Glucose (74-99) mg/dL POC Glucose (mg/dL) 153 H 150 H (75-99) mg/dL Calcium (8.4-10.2) mg/dL 06/08/19 06/08/19 06/08/19 Range/Units 00:03 04:10 04:10 RBC 3.84 L (4.30-5.90) m/uL Hgb 12.0 L (13.0-17.5) gm/dL Hct 37.5 L (39.0-53.0) % Plt Count 148 L (150-450) k/uL ABG pO2 (83-108) mmHg ABG O2 Saturation (94-97) % Chloride 112 H (98-107) mmol/L Glucose 184 H (74-99) mg/dL POC Glucose (mg/dL) 160 H (75-99) mg/dL Calcium 8.3 L (8.4-10.2) mg/dL 06/08/19 06/08/19 Range/Units 04:10 06:11 RBC (4.30-5.90) m/uL Hgb (13.0-17.5) gm/dL Hct (39.0-53.0) % Plt Count (150-450) k/uL ABG pO2 117 H (83-108) mmHg ABG O2 Saturation 98.6 H (94-97) % Chloride (98-107) mmol/L Glucose (74-99) mg/dL POC Glucose (mg/dL) 152 H (75-99) mg/dL Calcium (8.4-10.2) mg/dL Microbiology - Last 24 Hours (Table) 06/06/19 02:15 Gram Stain - Final Sputum Sputum Culture - Final 06/06/19 11:18 Blood Culture - Preliminary Blood No Growth after 24 hours Assessment and Plan Assessment: Assessment 1. Acute toxic metabolic encephalopathy presumable due to UTI and sepsis 2. Sepsis due to UTI presumably significnt puria, nitartes, LE in urine elevated WBCand respiraotry failure normal lactic acid Blood and urine culture: No growth to date Remains afebrile WBC normal today He has been off of pressors Ceftriaxone day #3 3. Acute hypoxic respiratory failure requiring intubation and mechanical ventilation Multifactorial: Presumably due to sepsis, CHF toxic metabolic encephalopathy from sedating medications Plan per critical care team 4. Elevated troponin The setting of known coronary artery disease and CHF Possibly due to sepsis and hypoxic respiratory failure EKG stable Echocardiogram stable from before, no vegetations noted Cardiology following 5. NPH, rule out neurodegenerative disease Baseline functional capacity and level of dementia not no 6. History of MSSA bacteremia 7. History of aortic thoracic aneurysm 8. Coronary artery disease with elevated troponin 9. Chronic systolic congestive heart failure 10. [place] Resolved Discussed with family. Prognosis remains guarded.
[2019-06-08 11:39] LABS: ABG Base Excess -0.7 mmol/L; ABG HCO3 24 mmol/L (21-25); ABG Oxygen Saturation 98.3 % (94-97); ABG PCO2 36 mmHg (35-45); ABG PH 7.43 (7.35-7.45); ABG PO2 98 mmHg (83-108); ABG TCO2 25 mmol/L (19-24); Allen Test Performed? Yes
[2019-06-08 11:45] LABS: Glucose,Whole Blood 139 mg/dL (75-99)
[2019-06-08] MEDS: CLEVIDIPINE BUTYRATE 25 MG in EMPTY BAG 1 BAG IV SCH ×3 (13:17→20:56)
[2019-06-08] MEDS: POTASSIUM CHLORIDE 10 MEQ in WATER FOR INJECTION 1 100ML.BAG IVPB SCH ×2 (15:10→17:14)
[2019-06-08 17:42] LABS: Glucose,Whole Blood 139 mg/dL (75-99)
[2019-06-08] MEDS: ASPIRIN 81 MG PO SCH (20:40)
[2019-06-09 00:11] LABS: Glucose,Whole Blood 187 mg/dL (75-99)
[2019-06-09] MEDS: INSULIN ASPART (NovoLOG) 100 UNIT/ML VIAL SQ SCH ×4 (00:19→18:50)
[2019-06-09] MEDS: CLEVIDIPINE BUTYRATE 25 MG in EMPTY BAG 1 BAG IV SCH ×4 (00:34→20:16)
[2019-06-09 05:59] LABS: Glucose,Whole Blood 137 mg/dL (75-99)
[2019-06-09 06:05] LABS: Basophils # (A) 0.1 k/uL (0-0.2); Basophils % (A) 1 %; Eosinophils # (A) 0.2 k/uL (0-0.7); Eosinophils % (A) 2 %; HCT 40.7 % (39.0-53.0); HGB 13.8 gm/dL (13.0-17.5); Lymphocytes # (A) 1.3 k/uL (1.0-4.8); Lymphocytes % (A) 14 %; MCH 32.4 pg (25.0-35.0); MCHC 33.8 g/dL (31.0-37.0); MCV 95.9 fL (80.0-100.0); Mean Platelet Volume 7.9; Monocytes # (A) 0.6 k/uL (0-1.0); Monocytes % (A) 7 %; Neutrophils % (A) 75 %; Platelet Count 202 k/uL (150-450); RBC 4.25 m/uL (4.30-5.90); RDW 13.6 % (11.5-15.5); WBC 9.2 k/uL (3.8-10.6)
[2019-06-09 06:14] LABS: Calcium 9.1 mg/dL (8.4-10.2)
[2019-06-09] MEDS: SODIUM CHLORIDE 0.9% 1,000 ML IV SCH (06:19)
[2019-06-09] MEDS: PANTOPRAZOLE 40 MG/10 ML VIAL IV SCH (08:11)
[2019-06-09] MEDS: APIXABAN 2.5 MG TABLET PO SCH ×2 (08:11→21:31)
[2019-06-09] MEDS: IPRATROPIUM-ALBUTEROL 3 ML NEB INHALATION SCH ×4 (08:38→18:58)
--- NOTE | 2019-06-09 09:17 | XR ---
EXAMINATION TYPE: XR chest 1V portable DATE OF EXAM: 06/09/2019 COMPARISON: 06/08/2019 HISTORY: Tube placement TECHNIQUE: Single frontal view of the chest is obtained. FINDINGS: ET and NG tube have been removed. Cardiomegaly and cardiac device noted. Postsurgical salazar ge overlying cervical spine. I basilar subsegmental consolidation diffuse interstitial pattern IMPRESSION: 1. ET and NG tube removal stable pleural-parenchymal changes. Correlate for mild CHF. Underlying pneu monia not excluded
[2019-06-09] MEDS ORDERED: RX INFO: IV CONTRAST WAS GIVEN 1 EACH MISC MISCELLANE PRN (09:32)
--- NOTE | 2019-06-09 09:37 | P.PN ---
Subjective Progress Note Date: 06/09/19 83-year-old male patient who was extubated yesterday after being admitted for altered mental status. The exact cause for the altered mental status is not clear. Sepsis was suspected although all of the cultures are negative and the patient is afebrile and hemodynamically stable. He is known to have coronary artery disease. Is known to have severe cardiomyopathy with an EF of around 20- 25%. There is a questionable vegetation in the mitral valve on the transthoracic echocardiogram. Nevertheless, the cultures of been all negative and he doesn't have any significant leukocytosis. He is hemodynamically stable. His cardiac rhythm is sinus. He is on no pressors for now. He is on chiropractic's at 7 mg an hour for blood pressure control. He is also receiving IV fluids at the rate of 40 mL an hour. He is having frequent PVCs. He is withdrawing to painful stimulation all 4 extremities. He senses pain. He does he does follow commands slowly. He was extubated yesterday without any major difficulties. Chest x-ray is showing a component of mild pulmonary vascular congestion. He is on long-term anticoagulation with Eliquis. He has an AICD in place. He is also on Rocephin. The CAT scan of the brain showed cerebral atrophy with hydrocephalus. There was no acute intracranial abnormalities. There was enlargement of the ventricles and there was some mild cerebral atrophy. No mass effect. Carotid Dopplers showed a 75% stenosis on the left. Objective - Vital Signs Vital signs: Vital Signs Temp 98.9 F 06/09/19 04:00 Pulse 96 06/09/19 08:45 Resp 21 06/09/19 08:00 BP 137/85 06/09/19 08:00 Pulse Ox 99 06/09/19 08:00 Intake & Output 06/08/19 06/09/19 06/09/19 18:59 06:59 18:59 Intake Total 1504.158 680 120 Output Total 3465 895 215 Balance -1959.842 -215 -95 Weight 95.4 kg Intake: Intake, IV Titration 1132.158 680 120 Amount Clevidipine Butyrate 25 42.167 150 mg In Empty Bag 1 bag @ 1 MG/HR 2 mls/hr IV .Q24H [facility] Rx#:[id number] Potassium Chloride 10 meq 300 In Water For Injection 1 100ml.bag @ 100 mls/hr IVPB Q1H [facility] Rx#: [id number] Propofol 1,000 mg In 149.991 Empty Bag 1 bag @ Titrate IV .Q0M [facility] Rx#: [id number] Sodium Chloride 0.9% 1, 540 480 120 000 ml @ 40 mls/hr IV . Q24H [facility] Rx#:[id number] cefTRIAXone 1 gm In 100 50 Sodium Chloride 0.9% 50 ml @ 100 mls/hr IVPB Q12HR [facility] Rx#:[id number] Tube Feeding 312 Other 60 Output: Urine 3465 895 215 Other: Voiding Method Indwelling Catheter Indwelling Catheter ABP, PAP, CO, CI - Last Documented Arterial Blood Pressure 151/65 - Exam in appearance, comfortable likely distress Head exam was generally normal. There was no scleral icterus or corneal arcus. Mucous membranes were moist. NNeck was supple and without jugular venous distension, thyromegaly, or carotid bruits. Carotids were easily palpable bilaterally. There was no adenopathy Lungs were clear to auscultation and percussion, and with normal diaphragmatic excursion. No wheezes or rales were noted. Heart sounds are irregular, positive S1 and S2 without any significant murmurs Abdominal exam revealed normal bowel sounds. The abdomen was soft, non-tender, and without masses, organomegaly, or appreciable enlargement of the abdominal aorta.There is a large anterior abdominal wall scar related to previous abdominal aortic surgery Examination of the extremities revealed easily palpable radial, femoral and pedal pulses. There was no cyanosis, clubbing or edema. Examination of the skin revealed no evidence of significant rashes, suspicious appearing nevi or other concerning lesions. Neurologically the patient is to self. He can follow some simple commands. His neurologic exam in general is nonfocal. There may be some left facial weakness on examination. He has a glass eye on the right. Pupils are reactive on the left. Tongue is midline. No Babinski. No clonus. Motor function is weak probably 4 out of 5 symmetrical both in the upper and lower extremities. Unable to ambulate. - Labs CBC & Chem 7: 06/09/19 05:50 06/09/19 05:50 Labs: Abnormal Lab Results - Last 24 Hours (Table) 06/08/19 06/08/19 06/08/19 Range/Units 11:33 11:37 17:30 RBC (4.30-5.90) m/uL ABG Total CO2 25 H (19-24) mmol/L ABG O2 Saturation 98.3 H (94-97) % Chloride (98-107) mmol/L Glucose (74-99) mg/dL POC Glucose (mg/dL) 139 H 139 H (75-99) mg/dL 06/09/19 06/09/19 06/09/19 Range/Units 00:00 05:48 05:50 RBC 4.25 L (4.30-5.90) m/uL ABG Total CO2 (19-24) mmol/L ABG O2 Saturation (94-97) % Chloride (98-107) mmol/L Glucose (74-99) mg/dL POC Glucose (mg/dL) 187 H 137 H (75-99) mg/dL 06/09/19 Range/Units 05:50 RBC (4.30-5.90) m/uL ABG Total CO2 (19-24) mmol/L ABG O2 Saturation (94-97) % Chloride 110 H (98-107) mmol/L Glucose 159 H (74-99) mg/dL POC Glucose (mg/dL) (75-99) mg/dL Microbiology - Last 24 Hours (Table) 06/06/19 11:18 Blood Culture - Preliminary Blood No Growth after 48 hours 06/06/19 02:15 Gram Stain - Final Sputum Sputum Culture - Final Assessment and Plan Plan: 1 altered mental status, still under investigation. Sepsis is considered although this is not absolutely definite. The patient is confused and alert and oriented to self only. His neurologic exam is nonfocal. CAT scan of the brain showed cerebral atrophy and hydrocephalus. 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 Repeat CAT scan of the brain with contrast. 0sitter at the bedside. Continue current antibiotic coverage. swallow evaluation. Medication adjustments by cardiology was noted. Wean off Cleviprexkeep the IV fluid at the rate of 40 mL an hour. Chest x-ray was reviewed. Continue long- term anticoagulation with Eliquis.we'll keep the patient ICU for now
[2019-06-09 09:38] VITALS: BMI 29.3
--- NOTE | 2019-06-09 09:54 | PN ---
PROGRESS NOTE Mr. Boris Palacios is an 83-year-old gentleman with a known history of aortic valve replacement by percutaneous approach, multivessel PCI in the past. He also has paroxysmal atrial fibrillation and underlying sick sinus syndrome. He came into the hospital with altered mentation, had a UTI, sepsis and he has recovered from this. He seems to be doing well. There is no clear-cut evidence to suggest any stroke for this patient. He is on Eliquis. Hemodynamically he is stable. He is less confused. He has can probably swallow oral medications. Vitals are stable. There is JVD of 1 cm, no carotid bruit, S1-S2 is heard normally. There is a short systolic murmur at the base. Second heart sound is preserved. Lungs reveal improved air entry. Abdomen is soft. Lower extremities reveal diminished pulses. No focal motor deficits. I am recommending that we add losartan 50 mg p.o. and metoprolol tartrate 12.[address] him on oral Lasix. We can gradually increase activity. Cardiac-maya he is stable. There is no evidence to suggest any acute myocardial injury. MMODL / IJN: [id number] /
[2019-06-09] MEDS: FUROSEMIDE 40 MG TAB PO SCH (10:03)
[2019-06-09] MEDS: LOSARTAN 50 MG TAB PO SCH (10:03)
[2019-06-09] MEDS: METOPROLOL TARTRATE 12.5 MG TAB PO SCH (10:03)
--- NOTE | 2019-06-09 11:44 | CT ---
EXAMINATION TYPE: CT brain wo con DATE OF EXAM: 06/09/2019 COMPARISON: 06/05/2019 and 06/07/2017 HISTORY: 83-year-old male confusion, altered mental status TECHNIQUE: Examination was done in axial plane without intravenous contrast. Coronal and sagittal r econstructions performed. CT DLP: 1099.4 mGycm Automated exposure control for dose reduction was used. FINDINGS: There is no evidence of acute intracranial hemorrhage, acute ischemic changes, mass, mass-effect, or extra-axial fluid collection. There is no effacement of cerebral sulci or basal subarachnoid cister ns. Persistent mild to moderate hydrocephalus. There is no midline shift. Alvarez-white matter distinct ion is preserved. Stable patchy subcortical white matter hypodensity lateral right frontal lobe. Paranasal sinuses and mastoid air cells are well pneumatized. Stable right globe prosthesis IMPRESSION: Unchanged mild to moderate hydrocephalus, correlate to exclude NPH. Otherwise, no acute intracranial abnormality seen.
[2019-06-09 12:41] LABS: Glucose,Whole Blood 178 mg/dL (75-99)
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
[2019-06-09 18:02] LABS: Glucose,Whole Blood 174 mg/dL (75-99)
[2019-06-09] MEDS ORDERED: HALOPERIDOL LACTATE 5 MG/ML 1 ML VIAL IVP PRN (19:45)
[2019-06-09] MEDS: FUROSEMIDE 20 MG TAB PO SCH (19:48)
[2019-06-09] MEDS: HALOPERIDOL LACTATE 5 MG/ML 1 ML VIAL IVP PRN (20:16)
[2019-06-09] MEDS: ASPIRIN 81 MG PO SCH (21:31)
[2019-06-09] MEDS: ACETAMINOPHEN IV (For NPO) 1,000 MG in EMPTY BAG 1 BAG IVPB PRN (21:45)
[2019-06-10] MEDS: CLEVIDIPINE BUTYRATE 25 MG in EMPTY BAG 1 BAG IV SCH ×7 (00:51→22:35)
[2019-06-10 00:57] LABS: Glucose,Whole Blood 177 mg/dL (75-99)
[2019-06-10] MEDS: INSULIN ASPART (NovoLOG) 100 UNIT/ML VIAL SQ SCH ×5 (01:06→19:06)
[2019-06-10] MEDS: HALOPERIDOL LACTATE 5 MG/ML 1 ML VIAL IVP PRN ×3 (03:12→23:07)
[2019-06-10] MEDS: DOCUSATE 100 MG CAP PO SCH (03:17)
[2019-06-10 04:53] LABS: Basophils # (A) 0.1 k/uL (0-0.2); Basophils % (A) 1 %; Eosinophils # (A) 0.1 k/uL (0-0.7); Eosinophils % (A) 1 %; HCT 41.6 % (39.0-53.0); HGB 13.9 gm/dL (13.0-17.5); Lymphocytes # (A) 1.2 k/uL (1.0-4.8); Lymphocytes % (A) 13 %; MCHC 33.4 g/dL (31.0-37.0); MCV 95.8 fL (80.0-100.0); Mean Platelet Volume 8.3; Monocytes # (A) 0.8 k/uL (0-1.0); Monocytes % (A) 9 %; Neutrophils % (A) 74 %; Platelet Count 230 k/uL (150-450); RBC 4.34 m/uL (4.30-5.90); RDW 13.4 % (11.5-15.5); WBC 9.4 k/uL (3.8-10.6)
[2019-06-10 06:08] LABS: Glucose,Whole Blood 153 mg/dL (75-99)
[2019-06-10] MEDS: IPRATROPIUM-ALBUTEROL 3 ML NEB INHALATION SCH ×4 (08:02→19:00)
--- NOTE | 2019-06-10 08:37 | XR ---
EXAMINATION TYPE: XR chest 1V portable DATE OF EXAM: 06/10/2019 COMPARISON: NONE HISTORY: Shortness of breath TECHNIQUE: Single frontal view of the chest is obtained. FINDINGS: Cardiomegaly and postsurgical changes noted in the cervical spine. Cardiac device seen and there is a persistent interstitial pattern with bilateral consolidation and small pleural effusions. IMPRESSION: Stable x-ray correlate for mild CHF otherwise consider interstitial pneumonia or pneumon itis.
--- NOTE | 2019-06-10 09:12 | P.PN ---
Subjective Progress Note Date: 06/10/19 83-year-old male patient who was extubated yesterday after being admitted for altered mental status. The exact cause for the altered mental status is not clear. Sepsis was suspected although all of the cultures are negative and the patient is afebrile and hemodynamically stable. He is known to have coronary artery disease. Is known to have severe cardiomyopathy with an EF of around 20- 25%. There is a questionable vegetation in the mitral valve on the transthoracic echocardiogram. Nevertheless, the cultures of been all negative and he doesn't have any significant leukocytosis. He is hemodynamically stable. His cardiac rhythm is sinus. He is on no pressors for now. He is on Cleviprex asked at 7 mg an hour for blood pressure control. He is also receiving IV fluids at the rate of 40 mL an hour. He is having frequent PVCs. He is withdrawing to painful stimulation all 4 extremities. He senses pain. He does he does follow commands slowly. He was extubated yesterday without any major difficulties. Chest x-ray is showing a component of mild pulmonary vascular congestion. He is on long-term anticoagulation with Eliquis. He has an AICD in place. He is also on Rocephin. The CAT scan of the brain showed cerebral atrophy with hydrocephalus. There was no acute intracranial abnormalities. There was enlargement of the ventricles and there was some mild cerebral atrophy. No mass effect. Carotid Dopplers showed a 75% stenosis on the left. On 06/10/2019, the patient remains the uterus and confused and at times agitated. He had almost no sleep overnight. He received a total of 2 mg of IV Haldol which really did not help a whole lot with his delirious state. He is doing well hemodynamically. He remains on Cleviprex drip at 12 mg an hour for blood pressure control. Note that he has coronary artery disease and he has also severe cardiomyopathy with an EF of around 20-25%. As mentioned earlier there was also a questionable vegetation involving the mitral valve on the transthoracic echocardiogram. He has an AICD in place. The patient is also on long-term anticoagulation with Eliquis. In terms of his cultures, he was suspected to have UTI. Urine culture came back negative. The blood culture was also negative. He is afebrile for now. He is on 2 L of oxygen by nasal cannula with a pulse ox of 93%. His chest x-ray from today shows cardiomegaly. No acut e abnormalities seen. No pleural effusion. Some mild/minimal pulmonary vascular congestion. He continues to have his AICD in place. Repeat CAT scan of the brain showed atrophy with possibility of hydrocephalus was again entertained. Note that he also has a carotid artery stenosis on the left 75%. 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 Objective - Vital Signs Vital signs: Vital Signs Temp 99.5 F 06/09/19 16:00 Pulse 93 06/10/19 08:00 Resp 16 06/10/19 08:00 BP 140/81 06/09/19 17:00 Pulse Ox 93 L 06/10/19 08:00 Intake & Output 06/09/19 06/10/19 06/10/19 18:59 06:59 18:59 Intake Total 620 685.6 80 Output Total 1505 940 120 Balance -885 -254.4 -40 Weight 95.4 kg 92.1 kg Intake: IV 540 80 ACETAMINOPHEN IV (For NPO 100 ) 1,000 mg In Empty Bag 1 bag @ 400 mls/hr IVPB Q6HR PRN Rx#:[id number] Sodium Chloride 0.9% 1, 440 80 000 ml @ 40 mls/hr IV . Q24H [facility] Rx#:[id number] Intake, IV Titration 620 145.6 Amount Clevidipine Butyrate 25 100 145.6 mg In Empty Bag 1 bag @ 1 MG/HR 2 mls/hr IV .Q24H [facility] Rx#:[id number] Sodium Chloride 0.9% 1, 520 000 ml @ 40 mls/hr IV . Q24H [facility] Rx#:[id number] Output: Urine 1505 940 120 Other: Voiding Method Indwelling Catheter Indwelling Catheter # Bowel Movements 1 ABP, PAP, CO, CI - Last Documented Arterial Blood Pressure 139/51 - Exam appearance, comfortable likely distress him on the examination is unchanged compared to yesterday. He is calm and comfortable in bed. At times he gets restless and agitated. This isn't needed to control. He has a sitter at the bedside. Head exam was generally normal. There was no scleral icterus or corneal arcus. Mucous membranes were moist. NNeck was supple and without jugular venous distension, thyromegaly, or carotid bruits. Carotids were easily palpable bilaterally. There was no adenopathy Lungs were clear to auscultation and percussion, and with normal diaphragmatic excursion. No wheezes or rales were noted. Heart sounds are irregular, positive S1 and S2 without any significant murmurs Abdominal exam revealed normal bowel sounds. The abdomen was soft, non-tender, and without masses, organomegaly, or appreciable enlargement of the abdominal aorta.There is a large anterior abdominal wall scar related to previous abdominal aortic surgery Examination of the extremities revealed easily palpable radial, femoral and pedal pulses. There was no cyanosis, clubbing or edema. Examination of the skin revealed no evidence of significant rashes, suspicious appearing nevi or other concerning lesions. Neurologically the patient is to self. He can follow some simple commands. His neurologic exam in general is nonfocal. There may be some left facial weakness on examination. He has a glass eye on the right. Pupils are reactive on the left. Tongue is midline. No Babinski. No clonus. Motor function is weak probably 4 out of 5 symmetrical both in the upper and lower extremities. Unable to ambulate. - Labs CBC & Chem 7: 06/10/19 04:30 06/09/19 18:59 Labs: Abnormal Lab Results - Last 24 Hours (Table) 06/09/19 06/09/19 06/10/19 Range/Units 12:40 17:50 00:55 POC Glucose (mg/dL) 178 H 174 H 177 H (75-99) mg/dL 06/10/19 Range/Units 06:06 POC Glucose (mg/dL) 153 H (75-99) mg/dL Microbiology - Last 24 Hours (Table) 06/06/19 11:18 Blood Culture - Preliminary Blood No Growth after 72 hours Assessment and Plan Plan: 1 altered mental status, still under investigation. Repeat CAT scan of the chest showed atrophy and possibility of normal pressure hydrocephalus was also entertained. Repeat CAT scan has been negative. The patient remains delirious. He has received Haldol a total of 2 mg overnight. Sepsis is considered although this is not absolutely definite. The patient is confused and alert and oriented to self only. His neurologic exam is nonfocal. CAT scan of the brain showed cerebral atrophy and hydrocephalus. He does have a carotid stenosis 75% on the left. His overall condition is unchanged compared to yesterday. 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
[2019-06-10] MEDS: APIXABAN 2.5 MG TABLET PO SCH ×2 (09:13→20:24)
[2019-06-10] MEDS: PANTOPRAZOLE SODIUM 40 MG GRANULE PKT PO SCH (09:13)
[2019-06-10] MEDS: LOSARTAN 50 MG TAB PO SCH (09:13)
[2019-06-10] MEDS: FUROSEMIDE 40 MG TAB PO SCH (09:13)
[2019-06-10] MEDS: METOPROLOL TARTRATE 12.5 MG TAB PO SCH (09:13)
--- NOTE | 2019-06-10 10:00 | PN ---
PROGRESS NOTE Mr. Palacios has history of percutaneous aortic valve implant, previous multiple coronary interventions. He has ejection fraction in the 35% range, has an ICD in place. He came in with what seems to be urosepsis, altered mental status. There is no evidence to suggest any active stroke based on the CAT scan. He is neurologically intact. He is somewhat disoriented and still confused, but responds to questions appropriately. Apparently refused medication, but this morning is receptive to take oral medications. Vitals are stable. Urine output is decent, S1-S2 heard normally. Rhythm is regular, short systolic murmur is not audible at the base of the heart. Lungs reveal improved air entry. Abdomen and lower extremity exam unchanged. Plan is to continue supportive care. I would recommend a Neurology consult, same medical regimen including beta blockers and is tolerating losartan very well. No new suggestions at this point. The patient is currently on Haldol that seems to have improved somewhat. He has not slept well and this could also be contributing to his altered mentation. Prognosis is guarded. MMODL / IJN: [id number] /
[2019-06-10] MEDS ORDERED: POTASSIUM CHLORIDE 10 MEQ in WATER FOR INJECTION 1 100ML.BAG IVPB SCH (11:00)
[2019-06-10 11:08] LABS: Glucose,Whole Blood 165 mg/dL (75-99)
[2019-06-10 11:17] LABS: ALT 20 U/L (4-49); AST 34 U/L (17-59); African American GFR (CKD) >90 (>60 ml/min/1.73 sqM); Albumin 3.7 g/dL (3.5-5.0); Alkaline Phosphatase 77 U/L (38-126); Anion Gap 9 mmol/L; Blood Urea Nitrogen 19 mg/dL (9-20); Calcium 9.1 mg/dL (8.4-10.2); Carbon Dioxide 24 mmol/L (22-30); Chloride 108 mmol/L (98-107); Glucose 168 mg/dL (74-99); Non-African American GFR(CKD) 84 (>60 ml/min/1.73 sqM); Potassium 3.4 mmol/L (3.5-5.1); Sodium 141 mmol/L (137-145); Total Bilirubin 0.7 mg/dL (0.2-1.3); Total Protein 6.9 g/dL (6.3-8.2)
[2019-06-10 11:39] LABS: African American GFR (CKD) >90 (>60 ml/min/1.73 sqM); Anion Gap 10 mmol/L; Blood Urea Nitrogen 21 mg/dL (9-20); Calcium 9.1 mg/dL (8.4-10.2); Carbon Dioxide 24 mmol/L (22-30); Chloride 108 mmol/L (98-107); Glucose 184 mg/dL (74-99); Non-African American GFR(CKD) 82 (>60 ml/min/1.73 sqM); Potassium 3.7 mmol/L (3.5-5.1); Sodium 142 mmol/L (137-145)
[2019-06-10] MEDS ORDERED: Potassium Replacement Protocol 1 EACH MISC MISCELLANE PRN (11:46)
[2019-06-10] MEDS: POTASSIUM CHLORIDE 10 MEQ in WATER FOR INJECTION 1 100ML.BAG IVPB SCH ×2 (12:27→13:51)
[2019-06-10] MEDS: ACETAMINOPHEN IV (For NPO) 1,000 MG in EMPTY BAG 1 BAG IVPB PRN (16:17)
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
[2019-06-10 18:29] LABS: Glucose,Whole Blood 182 mg/dL (75-99)
[2019-06-10] MEDS: FUROSEMIDE 20 MG TAB PO SCH ×2 (18:36→20:25)
[2019-06-10] MEDS: ASPIRIN 81 MG PO SCH (20:25)
[2019-06-10 22:13] LABS: African American GFR (CKD) >90 (>60 ml/min/1.73 sqM); Anion Gap 9 mmol/L; Blood Urea Nitrogen 22 mg/dL (9-20); Calcium 9.1 mg/dL (8.4-10.2); Carbon Dioxide 23 mmol/L (22-30); Chloride 109 mmol/L (98-107); Glucose 169 mg/dL (74-99); Magnesium 2.1 mg/dL (1.6-2.3); Non-African American GFR(CKD) 79 (>60 ml/min/1.73 sqM); Potassium 3.8 mmol/L (3.5-5.1); Sodium 141 mmol/L (137-145)
[2019-06-11 00:02] LABS: Glucose,Whole Blood 164 mg/dL (75-99)
[2019-06-11] MEDS: INSULIN ASPART (NovoLOG) 100 UNIT/ML VIAL SQ SCH ×3 (00:16→12:13)
[2019-06-11] MEDS: CLEVIDIPINE BUTYRATE 25 MG in EMPTY BAG 1 BAG IV SCH ×6 (01:04→14:56)
[2019-06-11] MEDS: HALOPERIDOL LACTATE 5 MG/ML 1 ML VIAL IVP PRN (04:59)
[2019-06-11 05:22] LABS: African American GFR (CKD) >90 (>60 ml/min/1.73 sqM); Anion Gap 13 mmol/L; Blood Urea Nitrogen 23 mg/dL (9-20); Calcium 9.2 mg/dL (8.4-10.2); Carbon Dioxide 21 mmol/L (22-30); Chloride 108 mmol/L (98-107); Glucose 177 mg/dL (74-99); Non-African American GFR(CKD) 79 (>60 ml/min/1.73 sqM); Potassium 3.7 mmol/L (3.5-5.1); Sodium 142 mmol/L (137-145)
[2019-06-11 06:19] LABS: Glucose,Whole Blood 171 mg/dL (75-99)
[2019-06-11] MEDS: SODIUM CHLORIDE 0.9% 1,000 ML IV SCH (07:19)
[2019-06-11] MEDS: IPRATROPIUM-ALBUTEROL 3 ML NEB INHALATION SCH ×2 (08:14→11:58)
[2019-06-11] MEDS: PANTOPRAZOLE SODIUM 40 MG GRANULE PKT PO SCH (08:45)
[2019-06-11] MEDS: FUROSEMIDE 40 MG TAB PO SCH (08:45)
[2019-06-11] MEDS: METOPROLOL TARTRATE 12.5 MG TAB PO SCH (08:45)
[2019-06-11] MEDS: APIXABAN 2.5 MG TABLET PO SCH (08:45)
[2019-06-11] MEDS ORDERED: LOSARTAN 50 MG TAB PO SCH (09:00)
--- NOTE | 2019-06-11 09:10 | XR ---
EXAMINATION TYPE: XR chest 1V portable DATE OF EXAM: 06/11/2019 COMPARISON: 06/10/2019 HISTORY: Tube placement TECHNIQUE: Single frontal view of the chest is obtained. FINDINGS: Heart is prominent and there is a cardiac device. There is subsegmental changes at both christopher ng bases. Mild interstitial prominence noted. Arthropathy shoulders. No pneumothorax. Hypertrophic an d degenerative change of the spine. IMPRESSION: Cardiomegaly with basilar atelectasis favored over pneumonia. No overt failure. Intersti tium appears to be improved from the prior exam correlate for improving interstitial venous congestio n or pneumonitis.
--- NOTE | 2019-06-11 09:41 | P.PN ---
Subjective Progress Note Date: 06/11/19 83-year-old male patient who was extubated yesterday after being admitted for altered mental status. The exact cause for the altered mental status is not clear. Sepsis was suspected although all of the cultures are negative and the patient is afebrile and hemodynamically stable. He is known to have coronary artery disease. Is known to have severe cardiomyopathy with an EF of around 20- 25%. There is a questionable vegetation in the mitral valve on the transthoracic echocardiogram. Nevertheless, the cultures of been all negative and he doesn't have any significant leukocytosis. He is hemodynamically stable. His cardiac rhythm is sinus. He is on no pressors for now. He is on Cleviprex asked at 7 mg an hour for blood pressure control. He is also receiving IV fluids at the rate of 40 mL an hour. He is having frequent PVCs. He is withdrawing to painful stimulation all 4 extremities. He senses pain. He does he does follow commands slowly. He was extubated yesterday without any major difficulties. Chest x-ray is showing a component of mild pulmonary vascular congestion. He is on long-term anticoagulation with Eliquis. He has an AICD in place. He is also on Rocephin. The CAT scan of the brain showed cerebral atrophy with hydrocephalus. There was no acute intracranial abnormalities. There was enlargement of the ventricles and there was some mild cerebral atrophy. No mass effect. Carotid Dopplers showed a 75% stenosis on the left. On 06/10/2019, the patient remains the uterus and confused and at times agitated. He had almost no sleep overnight. He received a total of 2 mg of IV Haldol which really did not help a whole lot with his delirious state. He is doing well hemodynamically. He remains on Cleviprex drip at 12 mg an hour for blood pressure control. Note that he has coronary artery disease and he has also severe cardiomyopathy with an EF of around 20-25%. As mentioned earlier there was also a questionable vegetation involving the mitral valve on the transthoracic echocardiogram. He has an AICD in place. The patient is also on long-term anticoagulation with Eliquis. In terms of his cultures, he was suspected to have UTI. Urine culture came back negative. The blood culture was also negative. He is afebrile for now. He is on 2 L of oxygen by nasal cannula with a pulse ox of 93%. His chest x-ray from today shows cardiomegaly. No acut e abnormalities seen. No pleural effusion. Some mild/minimal pulmonary vascular congestion. He continues to have his AICD in place. Repeat CAT scan of the brain showed atrophy with possibility of hydrocephalus was again entertained. Note that he also has a carotid artery stenosis on the left 75%. 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 On 06/11/2019, the patient seems to be a bit more awake, he is more alert compared to yesterday. He was able to hold a conversation with me. Obviously is less agitated. He was able to sleep. He got Haldol overnight. This morning she is much more comfortable. The primary care team was getting uncomfortable because of his mental status and they were considering transferring this patient to [facility] based on the absence neurologic coverage and we have in our hospital. I I still think that the patient has a component of delirium and he will gradually improved. He has significant cerebral atrophy and the possibility of a normal pressure hydrocephalus is also being entertained although this is felt to be less likely. He is afebrile. He is hemodynamically stable. Is producing adequate amount of urine output. He is on the same medication coverage. All of the cultures are negative. No other significant events overnight. There is a sitter at the bedside. Objective - Vital Signs Vital signs: Vital Signs Temp 97.7 F 06/11/19 08:00 Pulse 101 H 06/11/19 09:00 Resp 20 06/11/19 09:00 BP 154/116 06/11/19 09:00 Pulse Ox 97 06/11/19 09:00 Intake & Output 06/10/19 06/11/19 06/11/19 18:59 06:59 18:59 Intake Total 740 707.334 201.733 Output Total 1111 706 100 Balance -371 1.334 101.733 Weight 94.2 kg Intake: IV 440 480 120 Sodium Chloride 0.9% 1, 440 480 120 000 ml @ 40 mls/hr IV . Q24H [facility] Rx#:[id number] Intake, IV Titration 300 227.334 81.733 Amount Clevidipine Butyrate 25 100 227.334 81.733 mg In Empty Bag 1 bag @ 1 MG/HR 2 mls/hr IV .Q24H [facility] Rx#:[id number] Potassium Chloride 10 meq 200 In Water For Injection 1 100ml.bag @ 100 mls/hr IVPB Q1H [facility] Rx#: [id number] Output: Urine 1110 705 100 Stool 1 1 Other: Voiding Method Indwelling Catheter Indwelling Catheter ABP, PAP, CO, CI - Last Documented Arterial Blood Pressure 147/62 - Exam appearance, comfortable arousable and he will follow some simple commands and answer simple questions on today's evaluation. Seems to be more alert compared to yesterday. Head exam was generally normal. There was no scleral icterus or corneal arcus. Mucous membranes were moist. NNeck was supple and without jugular venous distension, thyromegaly, or carotid bruits. Carotids were easily palpable bilaterally. There was no adenopathy Lungs were clear to auscultation and percussion, and with normal diaphragmatic excursion. No wheezes or rales were noted. Heart sounds are irregular, positive S1 and S2 without any significant murmurs Abdominal exam revealed normal bowel sounds. The abdomen was soft, non-tender, and without masses, organomegaly, or appreciable enlargement of the abdominal aorta.There is a large anterior abdominal wall scar related to previous abdominal aortic surgery Examination of the extremities revealed easily palpable radial, femoral and pedal pulses. There was no cyanosis, clubbing or edema. Examination of the skin revealed no evidence of significant rashes, suspicious appearing nevi or other concerning lesions. Neurologically the patient is more oriented to place and self on today's evaluation.. He can follow some simple commands. His neurologic exam in general is nonfocal. There may be some left facial weakness on examination. He has a glass eye on the right. Pupils are reactive on the left. Tongue is mi dline. No Babinski. No clonus. Motor function is weak probably 4 out of 5 symmetrical both in the upper and lower extremities. Unable to ambulate. Overall, he is less previous. He is not trying to reach and he is much more comfortable and rest. On today's evaluation. - Labs CBC & Chem 7: 06/10/19 04:30 06/11/19 04:45 Labs: Abnormal Lab Results - Last 24 Hours (Table) 06/10/19 06/10/19 06/10/19 Range/Units 04:30 11:05 11:06 Potassium 3.4 L (3.5-5.1) mmol/L Chloride 108 H 108 H (98-107) mmol/L Carbon Dioxide (22-30) mmol/L BUN 21 H (9-20) mg/dL Glucose 168 H 184 H (74-99) mg/dL POC Glucose (mg/dL) 165 H (75-99) mg/dL 06/10/19 06/10/19 06/11/19 Range/Units 18:28 21:48 00:01 Potassium (3.5-5.1) mmol/L Chloride 109 H (98-107) mmol/L Carbon Dioxide (22-30) mmol/L BUN 22 H (9-20) mg/dL Glucose 169 H (74-99) mg/dL POC Glucose (mg/dL) 182 H 164 H (75-99) mg/dL 06/11/19 06/11/19 Range/Units 04:45 06:18 Potassium (3.5-5.1) mmol/L Chloride 108 H (98-107) mmol/L Carbon Dioxide 21 L (22-30) mmol/L BUN 23 H (9-20) mg/dL Glucose 177 H (74-99) mg/dL POC Glucose (mg/dL) 171 H (75-99) mg/dL Microbiology - Last 24 Hours (Table) 06/06/19 11:18 Blood Culture - Preliminary Blood No Growth after 96 hours Assessment and Plan Plan: 1 altered mental status, still under investigation. Repeat CAT scan of the chest showed atrophy and possibility of normal pressure hydrocephalus was also entertained. Repeat CAT scan has been negative. The patient remains delirious. He has received Haldol a total of 2 mg overnight. Sepsis is considered although this is not absolutely definite. The patient is confused and alert and oriented to self only. His neurologic exam is nonfocal. CAT scan of the brain showed cerebral atrophy and hydrocephalus. He does have a carotid stenosis 75% on the left. His overall condition is somewhat improved compared to yesterday. The patient is receiving Haldol for delirium and received Haldol overnight and was able to sleep and this morning he is much more interactive compared to yesterday. 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
--- NOTE | 2019-06-11 11:49 | FL ---
EXAMINATION TYPE: FL barium swallow w video DATE OF EXAM: 06/11/2019 COMPARISON: NONE HISTORY: Dysphasia TECHNIQUE: Fluoroscopy. FINDINGS: Fluoroscopic guidance was provided for the procedure performed in conjunction with the [facility] pathology department. Please see complete report forthcoming from the Speech Pathology departmen t. Various consistencies from thin liquid to solids were administered. Fluoroscopy time 3 minutes 3 seconds. Number of images: 0. Mild penetration was evident with the initial swallowing of thin liquids. Additional consistencies in cluding follow-up thin liquids was without aspiration or penetration. There is moderate pooling within the vallecula. There is marked hesitancy of bolus formation and bolus transport through the oropharynx into the esop hagus. IMPRESSION: 1. Marked hesitancy of bolus formation and swallowing initiation. 2. Pooling within the vallecula. 3. Mild transient penetration with thin liquids initial swallowing
[2019-06-11 12:07] LABS: Glucose,Whole Blood 175 mg/dL (75-99)
[2019-06-11 12:16] VITALS: TEMP 99
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
[2019-06-11] MEDS ORDERED: ACETAMINOPHEN TAB 500 MG TAB PO PRN (14:06)
[2019-06-11 15:01] VITALS: BP 150/101; PULSE 98; RESP 18
== END 2019-06-11 15:29 | disposition short-term general hospital (02) | DRG 871 ==
LOC: EC 15:40 → 2SICU 23:42
PROVIDERS: ADMIT Internal Medicine; ATTEND Internal Medicine
PROC: 06HY33Z Insertion of Infusion Device into Lower Vein, Percutaneous Approach (ICD-10-PCS; principal; 2019-06-06)
PROC: 03HB33Z Insertion of Infusion Device into Right Radial Artery, Percutaneous Approach (ICD-10-PCS; 2019-06-06)
DX: A41.9 Sepsis, unspecified organism (principal); G92 Toxic encephalopathy; J96.01 Acute respiratory failure with hypoxia; G91.2 (Idiopathic) normal pressure hydrocephalus; I50.22 Chronic systolic (congestive) heart failure; J98.11 Atelectasis; N17.9 Acute kidney failure, unspecified; N39.0 Urinary tract infection, site not specified; R65.20 Severe sepsis without septic shock; I49.5 Sick sinus syndrome; I71.2 Thoracic aortic aneurysm, without rupture; E11.42 Type 2 diabetes mellitus with diabetic polyneuropathy; I11.0 Hypertensive heart disease with heart failure; I25.10 Atherosclerotic heart disease of native coronary artery without angina pectoris; E78.5 Hyperlipidemia, unspecified; H91.90 Unspecified hearing loss, unspecified ear; I25.2 Old myocardial infarction; I25.5 Ischemic cardiomyopathy; I48.0 Paroxysmal atrial fibrillation; I65.23 Occlusion and stenosis of bilateral carotid arteries; M79.7 Fibromyalgia; S00.531A Contusion of lip, initial encounter; M10.9 Gout, unspecified; R45.1 Restlessness and agitation; I08.1 Rheumatic disorders of both mitral and tricuspid valves; R79.89 Other specified abnormal findings of blood chemistry; R29.717 NIHSS score 17; Z79.01 Long term (current) use of anticoagulants; Z79.82 Long term (current) use of aspirin; Z79.899 Other long term (current) drug therapy; Z88.5 Allergy status to narcotic agent; Z88.8 Allergy status to other drugs, medicaments and biological substances; Z95.810 Presence of automatic (implantable) cardiac defibrillator; Z95.2 Presence of prosthetic heart valve; Z87.891 Personal history of nicotine dependence; Z90.01 Acquired absence of eye; Z86.19 Personal history of other infectious and parasitic diseases; Z82.49 Family history of ischemic heart disease and other diseases of the circulatory system
CPT/HCPCS: 31500; 36415; 36600; 70450; 70496; 70498; 71045; 71046; 74230; 80048; 80053; 80306; 81001; 82140; 82550; 82805; 83605; 83735; 84132; 84484; 85025; 85610; 85730; 87040; 87070; 87086; 87205; 87502; 93005; 93306; 94002; 94003; 94640; 96360; 96361; 96372; 96374; 96375; 99291

== ENCOUNTER 2019-06-27 02:35 | Inpatient (IN) | payer MEDICARE ==
[2019-06-27] MEDS ORDERED: NALOXONE 0.4 MG/ML 1 ML VIAL IV PRN ×2 (04:02→04:34)
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
[2019-06-27 06:14] LABS: Basophils # (A) 0.1 k/uL (0-0.2); Basophils % (A) 1 %; Eosinophils # (A) 0.1 k/uL (0-0.7); Eosinophils % (A) 0 %; HCT 49.4 % (39.0-53.0); HGB 15.5 gm/dL (13.0-17.5); Hypochromasia Slight; Lymphocytes # (A) 0.9 k/uL (1.0-4.8); Lymphocytes % (A) 6 %; MCH 31.1 pg (25.0-35.0); MCHC 31.3 g/dL (31.0-37.0); MCV 99.4 fL (80.0-100.0); Mean Platelet Volume 8.1; Monocytes % (A) 7 %; Neutrophils # (A) 12.8 k/uL (1.3-7.7); Neutrophils % (A) 85 %; Platelet Count 240 k/uL (150-450); RBC 4.97 m/uL (4.30-5.90); RDW 13.4 % (11.5-15.5); WBC 15.1 k/uL (3.8-10.6)
[2019-06-27 06:24] LABS: INR 1.2 (<1.2); Prothrombin Time 12.5 sec (9.0-12.0)
[2019-06-27 06:24] LABS: Glucose,Whole Blood 132 mg/dL (75-99)
[2019-06-27 06:31] LABS: Albumin 3.5 g/dL (3.5-5.0); Calcium 8.9 mg/dL (8.4-10.2); Magnesium 1.6 mg/dL (1.6-2.3); Potassium 4.2 mmol/L (3.5-5.1); Total Bilirubin 0.9 mg/dL (0.2-1.3); Total Protein 7.3 g/dL (6.3-8.2)
[2019-06-27] MEDS: SODIUM CHLORIDE 0.9% 1,000 ML IV SCH ×2 (06:49→13:37)
[2019-06-27] MEDS: DILTIAZEM 125 MG in SODIUM CHLORIDE 0.9% 100 ML IV SCH (06:49)
[2019-06-27] MEDS: HEPARIN SOD,PORK IN 0.45% NACL 25,000 UNIT in 0.45% NACL 1 250ML.BAG IV SCH (07:04)
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
[2019-06-27] MEDS ORDERED: INSULIN ASPART (NovoLOG) 100 UNIT/ML VIAL SQ SCH (10:15)
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
[2019-06-27] MEDS: INSULIN ASPART (NovoLOG) 100 UNIT/ML VIAL SQ SCH ×2 (11:53→18:30)
[2019-06-27 12:03] LABS: Glucose,Whole Blood 128 mg/dL (75-99)
--- NOTE | 2019-06-27 12:27 | P.PN ---
<Sonya Arellano - Last Filed: 06/27/19 12:26> Subjective This is Sonya Arellano PA-C dictating a consult on this patient The patient was interviewed and examined by me as well as by Dr. Balderas Case discussed with Dr. Balderas and he agrees with the plan of care HPI Patient is an 83-year-old male with a past medical history of CAD, severe cardiomyopathy status post ICD placement, CHF, paroxysmal atrial fibrillation, hypertension, diabetes, dyslipidemia, and multiple other medical problems who was transferred from [facility]. The patient is a very poor historian and is not responding to questions at the time of my exam. History was obtained from the chart. According to the notes he has had decreased oral intake and altered mental status. Cardiology is consulted for atrial fibrillation with RVR. I do not have an EKG available he has been started on a Cardizem drip. He is being evaluated by surgery for possible PEG tube placement. ROS: Unable to obtain, patient is a poor historian and not answering questions at this time EXAMINATION: Patient is afebrile, pulse in the 90s, respirations in the 20s, blood pressure 160/90, oxygen saturation 98% on 4 L nasal cannula Patient seen and examined lying in bed, sleeping but arousable, does not answer questions Lungs are clear to auscultation bilaterally Heart is irregularly irregular, no audible murmurs Lower extremity edema REVIEW OF LABS, ECG & MEDICAL DATA Bedside telemetry reveals atrial fibrillation with rates in the 90s Labs revealed WBC 15.1, hemoglobin 15.5, platelets 240, potassium 4.2, BUN 15, creatinine 1 IMPRESSION / ASSESSMENT: Atrial fibrillation, rate in the 90s on IV Cardizem, chart reveals he is on eliquis at home, he is currently on a heparin drip History of CAD History of severe cardiomyopathy status post ICD placement CHF Hypertension Diabetes Dyslipidemia Multiple medical problems PLAN: Decision regarding anticoagulation management per primary care team, patient does not appear to be able to swallow pills at this time Continue Cardizem for rate control Management of multiple medical problems her primary care team Objective - Vital Signs Vital signs: Vital Signs Temp 98.3 F 06/27/19 08:00 Pulse 89 06/27/19 08:00 Resp 26 H 06/27/19 08:00 BP 160/94 06/27/19 08:00 Pulse Ox 98 01/24/20 08:00 Intake & Output 06/26/19 06/27/19 06/27/19 18:59 06:59 18:59 Intake Total 300 Output Total 150 180 Balance -150 120 Weight 90.718 kg 90.72 kg Intake: IV 300 Sodium Chloride 0.9% 1, 300 000 ml @ 100 mls/hr IV . Q10H [facility] Rx#:[id number] Output: Urine 150 180 Other: Voiding Method Indwelling Catheter Indwelling Catheter - Labs CBC & Chem 7: 06/27/19 05:50 06/27/19 05:50 Labs: Abnormal Lab Results - Last 24 Hours (Table) 06/27/19 06/27/19 06/27/19 Range/Units 05:50 05:50 05:50 WBC 15.1 H (3.8-10.6) k/uL Neutrophils # 12.8 H (1.3-7.7) k/uL Lymphocytes # 0.9 L (1.0-4.8) k/uL PT 12.5 H (9.0-12.0) sec INR 1.2 H (<1.2) Glucose 143 H (74-99) mg/dL POC Glucose (mg/dL) (75-99) mg/dL 06/27/19 06/27/19 Range/Units 06:12 11:52 WBC (3.8-10.6) k/uL Neutrophils # (1.3-7.7) k/uL Lymphocytes # (1.0-4.8) k/uL PT (9.0-12.0) sec INR (<1.2) Glucose (74-99) mg/dL POC Glucose (mg/dL) 132 H 128 H (75-99) mg/dL <Preston Balderas - Last Filed: 06/27/19 21:53> Subjective Principal diagnosis: This is a consult not a progress note Objective - Vital Signs Vital signs: Vital Signs Temp 98 F 06/27/19 16:00 Pulse 107 H 06/27/19 16:00 Resp 25 H 06/27/19 16:00 BP 125/76 06/27/19 16:00 Pulse Ox 99 06/27/19 16:00 Intake & Output 06/27/19 06/27/19 06/28/19 06:59 18:59 06:59 Intake Total 1164.038 100 Output Total 150 550 115 Balance -150 614.038 -15 Weight 90.718 kg 90.72 kg Intake: IV 1100 100 Sodium Chloride 0.9% 1, 1100 100 000 ml @ 100 mls/hr IV . Q10H [facility] Rx#:[id number] Intake, IV Titration 64.038 Amount Heparin Sod,Pork in 0.45% 64.038 NaCl 25,000 unit In 0.45 % NaCl 1 250ml.bag @ 11. 03 UNITS/KG/HR 10.006 mls /hr IV .Q24H [facility] Rx#: [id number] Output: Urine 150 550 115 Other: Voiding Method Indwelling Catheter Indwelling Catheter - Labs CBC & Chem 7: 06/27/19 05:50 06/27/19 05:50 Labs: Abnormal Lab Results - Last 24 Hours (Table) 06/27/19 06/27/19 06/27/19 Range/Units 05:50 05:50 05:50 WBC 15.1 H (3.8-10.6) k/uL Neutrophils # 12.8 H (1.3-7.7) k/uL Lymphocytes # 0.9 L (1.0-4.8) k/uL PT 12.5 H (9.0-12.0) sec INR 1.2 H (<1.2) APTT (22.0-30.0) sec Glucose 143 H (74-99) mg/dL POC Glucose (mg/dL) (75-99) mg/dL 06/27/19 06/27/19 06/27/19 Range/Units 06:12 11:52 12:51 WBC (3.8-10.6) k/uL Neutrophils # (1.3-7.7) k/uL Lymphocytes # (1.0-4.8) k/uL PT (9.0-12.0) sec INR (<1.2) APTT 36.4 H (22.0-30.0) sec Glucose (74-99) mg/dL POC Glucose (mg/dL) 132 H 128 H (75-99) mg/dL 06/27/19 06/27/19 Range/Units 18:29 20:00 WBC (3.8-10.6) k/uL Neutrophils # (1.3-7.7) k/uL Lymphocytes # (1.0-4.8) k/uL PT (9.0-12.0) sec INR (<1.2) APTT 55.4 H (22.0-30.0) sec Glucose (74-99) mg/dL POC Glucose (mg/dL) 152 H (75-99) mg/dL
[2019-06-27] MEDS ORDERED: HEPARIN SODIUM,PORCINE 5,000 UNIT/ML 1 ML VIAL IV STA (13:27)
--- NOTE | 2019-06-27 14:14 | CT ---
EXAMINATION TYPE: CT brain wo con DATE OF EXAM: 06/27/2019 COMPARISON: 06/09/2019 INDICATION: altered mental status DLP: 1082.4 mGycm, Automated exposure control for dose reduction was used. CONTRAST: None CT of the brain is performed utilizing 3 mm thick sections through the posterior fossa and 3 mm thick sections through the remaining calvarium. Study is performed within 24 hours of arrival to the hosp ital. No abnormal hyperdensity is present to suggest an acute intracranial hemorrhage. No mass lesion is evident. No acute infarcts are evident. Some periventricular white matter hypodensity is present, likely on th e basis of chronic white matter ischemic changes. Ventricles and sulci are mildly prominent. No temporal horn dilatation is evident. Paranasal sinuses and mastoid air cells within the [id number] are clear. Right eye prosthesis is noted. IMPRESSIONS: 1. Mild periventricular white matter ischemic changes. There is some prominence of the ventricles l ikely related to some atrophy.
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
[2019-06-27] MEDS: CLINDAMYCIN 600 MG in DEXTROSE 5% IN WATER 50 ML IVPB SCH ×4 (18:18→23:52)
[2019-06-27 18:39] LABS: Glucose,Whole Blood 152 mg/dL (75-99)
[2019-06-28] MEDS: INSULIN ASPART (NovoLOG) 100 UNIT/ML VIAL SQ SCH ×5 (00:34→23:23)
[2019-06-28 00:38] LABS: Glucose,Whole Blood 139 mg/dL (75-99)
[2019-06-28] MEDS: SODIUM CHLORIDE 0.9% 1,000 ML IV SCH ×3 (02:23→20:20)
[2019-06-28] MEDS: HEPARIN SOD,PORK IN 0.45% NACL 25,000 UNIT in 0.45% NACL 1 250ML.BAG IV SCH ×2 (03:07→22:31)
[2019-06-28] MEDS: DILTIAZEM 125 MG in SODIUM CHLORIDE 0.9% 100 ML IV SCH (05:14)
[2019-06-28 05:35] LABS: Glucose,Whole Blood 128 mg/dL (75-99)
[2019-06-28 05:41] LABS: HCT 40.9 % (39.0-53.0); HGB 13.1 gm/dL (13.0-17.5); MCH 30.6 pg (25.0-35.0); MCV 95.8 fL (80.0-100.0); Mean Platelet Volume 8.9; Platelet Count 275 k/uL (150-450); RBC 4.27 m/uL (4.30-5.90); RDW 13.5 % (11.5-15.5); WBC 18.8 k/uL (3.8-10.6)
[2019-06-28 06:25] LABS: African American GFR (CKD) >90 (>60 ml/min/1.73 sqM); Anion Gap 12 mmol/L; Blood Urea Nitrogen 14 mg/dL (9-20); Calcium 8.8 mg/dL (8.4-10.2); Carbon Dioxide 20 mmol/L (22-30); Chloride 108 mmol/L (98-107); Glucose 139 mg/dL (74-99); Magnesium 1.7 mg/dL (1.6-2.3); Non-African American GFR(CKD) 79 (>60 ml/min/1.73 sqM); Phosphorus 2.6 mg/dL (2.5-4.5); Potassium 4.1 mmol/L (3.5-5.1); Sodium 140 mmol/L (137-145)
[2019-06-28] MEDS ORDERED: MAGNESIUM SULFATE-D5W PMX 1 GM in DEXTROSE/WATER 1 100ML.BAG IVPB SCH (06:45)
[2019-06-28] MEDS: MAGNESIUM SULFATE-D5W PMX 1 GM in DEXTROSE/WATER 1 100ML.BAG IVPB SCH ×2 (07:09→12:20)
[2019-06-28] MEDS: CLINDAMYCIN 600 MG in DEXTROSE 5% IN WATER 50 ML IVPB SCH ×2 (08:36)
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
[2019-06-28 12:26] LABS: Glucose,Whole Blood 131 mg/dL (75-99)
--- NOTE | 2019-06-28 13:59 | P.PN ---
Subjective Progress Note Date: 06/28/19 Patient resting comfortably in bed Objective - Vital Signs Vital signs: Vital Signs Temp 98.0 F 06/28/19 12:00 Pulse 78 06/28/19 12:00 Resp 24 06/28/19 12:00 BP 128/69 06/28/19 12:00 Pulse Ox 94 L 06/28/19 12:00 Intake & Output 06/27/19 06/28/19 06/28/19 18:59 06:59 18:59 Intake Total 6854.214 9174.440 Output Total 550 600 Balance 614.038 923.440 Weight 90.72 kg 88.6 kg Intake: IV 1100 1200 Sodium Chloride 0.9% 1, 1100 1200 000 ml @ 100 mls/hr IV . Q10H JENNY Rx#:[id number] Intake, IV Titration 64.038 323.440 Amount Clindamycin 600 mg In 50 Dextrose 5% in Water 50 ml @ 50 mls/hr IVPB Q8HR JENNY Rx#:[id number] Diltiazem 125 mg In 112.083 Sodium Chloride 0.9% 100 ml @ 5 MG/HR 5 mls/hr IV .Q24H JENNY Rx#:[id number] Heparin Sod,Pork in 0.45% 64.038 161.357 NaCl 25,000 unit In 0.45 % NaCl 1 250ml.bag @ 11. 03 UNITS/KG/HR 10.006 mls /hr IV .Q24H JENNY Rx#: [id number] Output: Urine 550 600 Other: Voiding Method Indwelling Catheter Indwelling Catheter Indwelling Catheter - Constitutional General appearance: Present: cooperative - Respiratory Details: Nonlabored - Gastrointestinal Gastrointestinal Comment(s): Soft nondistended nontender - Labs CBC & Chem 7: 06/28/19 05:13 06/28/19 05:13 Labs: Abnormal Lab Results - Last 24 Hours (Table) 06/27/19 06/27/19 06/28/19 Range/Units 18:29 20:00 00:26 WBC (3.8-10.6) k/uL RBC (4.30-5.90) m/uL APTT 55.4 H (22.0-30.0) sec Chloride (98-107) mmol/L Carbon Dioxide (22-30) mmol/L Glucose (74-99) mg/dL POC Glucose (mg/dL) 152 H 139 H (75-99) mg/dL 06/28/19 06/28/19 06/28/19 Range/Units 05:13 05:13 05:13 WBC 18.8 H (3.8-10.6) k/uL RBC 4.27 L (4.30-5.90) m/uL APTT 45.2 H (22.0-30.0) sec Chloride 108 H (98-107) mmol/L Carbon Dioxide 20 L (22-30) mmol/L Glucose 139 H (74-99) mg/dL POC Glucose (mg/dL) (75-99) mg/dL 06/28/19 06/28/19 Range/Units 05:23 12:15 WBC (3.8-10.6) k/uL RBC (4.30-5.90) m/uL APTT (22.0-30.0) sec Chloride (98-107) mmol/L Carbon Dioxide (22-30) mmol/L Glucose (74-99) mg/dL POC Glucose (mg/dL) 128 H 131 H (75-99) mg/dL Assessment and Plan Assessment: Dysphagia Plan: Patient does have multiple confounding medical comorbidities. Possible placement of PEG tube next week for dysphagia pending neurology and medical clearance
[2019-06-28 14:44] LABS: Amorphous Sediment,Urine Rare /hpf; Appearance,Urine Cloudy (Clear); Bacteria,Urine Rare /hpf; Bilirubin,Urine Negative (Negative); Blood,Urine Moderate (Negative); Color,Urine Yellow; Glucose,Urine (UA) Trace (Negative); Hyaline Casts,Urine 17 /lpf (0-2); Ketones,Urine 1+ (Negative); Leukocyte Esterase,Urine Small (Negative); Mucus,Urine Many /hpf; Nitrite,Urine Negative (Negative); PH, Urine 5.5 (5.0-8.0); Protein,Urine 2+ (Negative); RBC,Urine 24 /hpf (0-5); Specific Gravity,Urine 1.023 (1.001-1.035); Squamous Epithelial Cell,Urine 1 /hpf (0-4); Urobilinogen,Urine <2.0 mg/dL (<2.0); WBC,Urine 67 /hpf (0-5)
[2019-06-28] MEDS: AMPICILLIN-SULBACTAM 3 GM in SODIUM CHLORIDE 0.9% 100 ML IVPB SCH ×3 (16:00→23:15)
[2019-06-28 18:05] LABS: Glucose,Whole Blood 173 mg/dL (75-99)
[2019-06-28 23:31] LABS: Glucose,Whole Blood 151 mg/dL (75-99)
[2019-06-29] MEDS: DILTIAZEM 125 MG in SODIUM CHLORIDE 0.9% 100 ML IV SCH (03:48)
[2019-06-29 05:00] LABS: HCT 41.5 % (39.0-53.0); HGB 13.3 gm/dL (13.0-17.5); MCHC 31.9 g/dL (31.0-37.0); MCV 97.1 fL (80.0-100.0); Mean Platelet Volume 8.8; Platelet Count 244 k/uL (150-450); RBC 4.27 m/uL (4.30-5.90); RDW 13.6 % (11.5-15.5); WBC 12.7 k/uL (3.8-10.6)
[2019-06-29 05:20] LABS: African American GFR (CKD) >90 (>60 ml/min/1.73 sqM); Anion Gap 9 mmol/L; Blood Urea Nitrogen 13 mg/dL (9-20); Calcium 8.3 mg/dL (8.4-10.2); Carbon Dioxide 20 mmol/L (22-30); Chloride 111 mmol/L (98-107); Glucose 122 mg/dL (74-99); Non-African American GFR(CKD) 85 (>60 ml/min/1.73 sqM); Potassium 3.7 mmol/L (3.5-5.1); Sodium 140 mmol/L (137-145)
[2019-06-29] MEDS: AMPICILLIN-SULBACTAM 3 GM in SODIUM CHLORIDE 0.9% 100 ML IVPB SCH ×4 (05:30→23:35)
[2019-06-29] MEDS: SODIUM CHLORIDE 0.9% 1,000 ML IV SCH ×2 (05:31→17:43)
[2019-06-29] MEDS: INSULIN ASPART (NovoLOG) 100 UNIT/ML VIAL SQ SCH ×4 (05:33→20:13)
[2019-06-29 05:34] LABS: ABG Base Excess 0.8 mmol/L; ABG HCO3 25 mmol/L (21-25); ABG Oxygen Saturation 95.5 % (94-97); ABG PCO2 39 mmHg (35-45); ABG PH 7.42 (7.35-7.45); ABG PO2 76 mmHg (83-108); ABG TCO2 27 mmol/L (19-24); Allen Test Performed? Yes
[2019-06-29 05:44] LABS: Glucose,Whole Blood 121 mg/dL (75-99)
--- NOTE | 2019-06-29 06:14 | XR ---
EXAMINATION TYPE: XR chest 1V portable DATE OF EXAM: 06/29/2019 HISTORY: pneumonia. REFERENCE: Previous study dated 06/11/2019. FINDINGS: A bipolar pacemaker in place on the left. The heart is enlarged. There is bibasilar atelectasis. There are small, bilateral effusions. Pulmonar y vasculature is improved slightly. IMPRESSION: 1. BIBASILAR AIRSPACE DISEASE. 2. SMALL, BILATERAL EFFUSIONS.
[2019-06-29] MEDS ORDERED: ARTIFICIAL TEARS-HYPROMELLOSE DROPS 15 ML BTL BOTH EYES PRN (09:01)
[2019-06-29] MEDS: METOPROLOL TARTRATE 50 MG TAB PO SCH ×2 (09:38→19:53)
[2019-06-29] MEDS: SODIUM PHOSPHATE 10 MMOL in SODIUM CHLORIDE 0.9% 250 ML IVPB SCH ×3 (10:45→18:23)
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
[2019-06-29 11:46] LABS: Glucose,Whole Blood 225 mg/dL (75-99)
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
--- NOTE | 2019-06-29 14:52 | P.PN ---
Subjective Progress Note Date: 06/29/19 Patient resting comfortably in bed Objective - Vital Signs Vital signs: Vital Signs Temp 97.9 F 06/29/19 12:00 Pulse 76 06/29/19 12:00 Resp 24 06/29/19 12:00 BP 137/73 06/29/19 12:00 Pulse Ox 94 L 06/29/19 12:00 Intake & Output 06/28/19 06/29/19 06/29/19 18:59 06:59 18:59 Intake Total 1300 1024.316 600 Output Total 400 720 550 Balance 900 304.316 50 Weight 89.1 kg 89.1 kg Intake: IV 1300 600 600 Sodium Chloride 0.9% 1, 1300 600 600 000 ml @ 100 mls/hr IV . Q10H [facility] Rx#:[id number] Intake, IV Titration 424.316 Amount Diltiazem 125 mg In 112.833 Sodium Chloride 0.9% 100 ml @ 5 MG/HR 5 mls/hr IV .Q24H [facility] Rx#:[id number] Heparin Sod,Pork in 0.45% 311.483 NaCl 25,000 unit In 0.45 % NaCl 1 250ml.bag @ 11. 03 UNITS/KG/HR 10.006 mls /hr IV .Q24H [facility] Rx#: [id number] Output: Urine 400 720 550 Other: Voiding Method Indwelling Catheter Indwelling Catheter Indwelling Catheter - Constitutional General appearance: Present: cooperative - Respiratory Details: nonlabored - Gastrointestinal Gastrointestinal Comment(s): S/NT/ND - Psychiatric Psychiatric: Present: A&O x's 3 - Labs CBC & Chem 7: 06/29/19 04:04 06/29/19 04:04 Labs: Abnormal Lab Results - Last 24 Hours (Table) 06/28/19 06/28/19 06/29/19 Range/Units 17:54 23:20 04:04 WBC (3.8-10.6) k/uL RBC (4.30-5.90) m/uL APTT (22.0-30.0) sec ABG pO2 (83-108) mmHg ABG Total CO2 (19-24) mmol/L Chloride 111 H (98-107) mmol/L Carbon Dioxide 20 L (22-30) mmol/L Glucose 122 H (74-99) mg/dL POC Glucose (mg/dL) 173 H 151 H (75-99) mg/dL Calcium 8.3 L (8.4-10.2) mg/dL Phosphorus 2.0 L (2.5-4.5) mg/dL 06/29/19 06/29/19 06/29/19 Range/Units 04:04 04:04 05:32 WBC 12.7 H (3.8-10.6) k/uL RBC 4.27 L (4.30-5.90) m/uL APTT 41.5 H (22.0-30.0) sec ABG pO2 76 L (83-108) mmHg ABG Total CO2 27 H (19-24) mmol/L Chloride (98-107) mmol/L Carbon Dioxide (22-30) mmol/L Glucose (74-99) mg/dL POC Glucose (mg/dL) (75-99) mg/dL Calcium (8.4-10.2) mg/dL Phosphorus (2.5-4.5) mg/dL 06/29/19 06/29/19 06/29/19 Range/Units 05:33 11:34 12:00 WBC (3.8-10.6) k/uL RBC (4.30-5.90) m/uL APTT 49.5 H (22.0-30.0) sec ABG pO2 (83-108) mmHg ABG Total CO2 (19-24) mmol/L Chloride (98-107) mmol/L Carbon Dioxide (22-30) mmol/L Glucose (74-99) mg/dL POC Glucose (mg/dL) 121 H 225 H (75-99) mg/dL Calcium (8.4-10.2) mg/dL Phosphorus (2.5-4.5) mg/dL Microbiology - Last 24 Hours (Table) 06/28/19 13:15 Urine Culture - Preliminary Urine,Voided 06/27/19 12:51 Blood Culture - Preliminary Blood No Growth after 24 hours Assessment and Plan Assessment: Dysphagia Plan: Patient does have multiple confounding medical comorbidities. Possible pl acement of PEG tube next week will follow up calorie count and speech recs
[2019-06-29 17:23] LABS: Glucose,Whole Blood 127 mg/dL (75-99)
[2019-06-29] MEDS: HEPARIN SOD,PORK IN 0.45% NACL 25,000 UNIT in 0.45% NACL 1 250ML.BAG IV SCH (17:43)
[2019-06-29] MEDS: ATORVASTATIN 80 MG TAB PO SCH (19:53)
[2019-06-29] MEDS: ALLOPURINOL 100 MG TAB PO SCH (19:54)
[2019-06-29 20:14] LABS: Glucose,Whole Blood 153 mg/dL (75-99)
[2019-06-30 00:08] LABS: Glucose,Whole Blood 112 mg/dL (75-99)
[2019-06-30] MEDS: SODIUM CHLORIDE 0.9% 1,000 ML IV SCH ×2 (03:02→12:50)
[2019-06-30] MEDS: AMPICILLIN-SULBACTAM 3 GM in SODIUM CHLORIDE 0.9% 100 ML IVPB SCH ×3 (05:07→17:27)
[2019-06-30] MEDS: HEPARIN SOD,PORK IN 0.45% NACL 25,000 UNIT in 0.45% NACL 1 250ML.BAG IV SCH ×2 (05:25→23:23)
[2019-06-30 06:28] LABS: Glucose,Whole Blood 125 mg/dL (75-99)
[2019-06-30] MEDS: INSULIN ASPART (NovoLOG) 100 UNIT/ML VIAL SQ SCH ×3 (06:41→18:14)
--- NOTE | 2019-06-30 08:07 | XR ---
EXAMINATION TYPE: XR chest 1V portable DATE OF EXAM: 06/30/2019 COMPARISON: Prior chest x-ray 06/29/2019 HISTORY: Pneumonia TECHNIQUE: Single frontal view of the chest is obtained. FINDINGS: Perihilar increased attenuation is noted. Heart remains enlarged. Intracardiac defibrillat or leads are stable. No evident pneumothorax. Retrocardiac density obscures the left hemidiaphragm. G enerator is in left pectoral region. Patient is rotated and there are overlying cardiac leads. IMPRESSION: Correlate for congestive heart failure. Pneumonia not excluded.
[2019-06-30] MEDS: METOPROLOL TARTRATE 50 MG TAB PO SCH ×2 (09:25→20:19)
[2019-06-30 09:27] LABS: Basophils # (A) 0.1 k/uL (0-0.2); Basophils % (A) 1 %; Eosinophils # (A) 0.2 k/uL (0-0.7); Eosinophils % (A) 2 %; HCT 43.1 % (39.0-53.0); HGB 13.8 gm/dL (13.0-17.5); Lymphocytes # (A) 1.4 k/uL (1.0-4.8); Lymphocytes % (A) 15 %; MCH 30.4 pg (25.0-35.0); MCHC 32.1 g/dL (31.0-37.0); MCV 94.8 fL (80.0-100.0); Mean Platelet Volume 9.1; Monocytes # (A) 0.4 k/uL (0-1.0); Monocytes % (A) 5 %; Neutrophils # (A) 7.3 k/uL (1.3-7.7); Neutrophils % (A) 77 %; Platelet Count 268 k/uL (150-450); RBC 4.55 m/uL (4.30-5.90); RDW 13.6 % (11.5-15.5); WBC 9.6 k/uL (3.8-10.6)
[2019-06-30 09:51] LABS: African American GFR (CKD) >90 (>60 ml/min/1.73 sqM); Anion Gap 11 mmol/L; Blood Urea Nitrogen 10 mg/dL (9-20); Calcium 8.4 mg/dL (8.4-10.2); Carbon Dioxide 23 mmol/L (22-30); Chloride 107 mmol/L (98-107); Glucose 133 mg/dL (74-99); Magnesium 1.7 mg/dL (1.6-2.3); Non-African American GFR(CKD) 88 (>60 ml/min/1.73 sqM); Phosphorus 2.3 mg/dL (2.5-4.5); Potassium 3.1 mmol/L (3.5-5.1); Sodium 141 mmol/L (137-145)
[2019-06-30 12:10] LABS: Glucose,Whole Blood 179 mg/dL (75-99)
[2019-06-30] MEDS ORDERED: POTASSIUM BICARBONATE/CIT AC 20 MEQ TABLET.EFF PO ONE (13:31)
[2019-06-30 14:11] VITALS: BMI 26.2
[2019-06-30 17:12] LABS: Glucose,Whole Blood 186 mg/dL (75-99)
--- NOTE | 2019-06-30 18:04 | P.PN ---
Subjective Chart was reviewed. Patient had extensive neurological workup for confusion and alteration in mental status. I discussed with the family.. We reviewed the patient's pacemaker card. The patient has MRI safe pacemaker. Objective - Vital Signs Vital signs: Vital Signs Temp 97.7 F 06/30/19 16:00 Pulse 68 06/30/19 16:00 Resp 16 06/30/19 16:00 BP 146/81 06/30/19 16:00 Pulse Ox 95 06/30/19 16:00 Intake & Output 06/29/19 06/30/19 06/30/19 18:59 06:59 18:59 Intake Total 528.484 2252.53 480 Output Total 332 755 4038 Balance 217.029 469.53 -520 Weight 89.1 kg 87.9 kg 87.9 kg Intake: IV 600 1200 Sodium Chloride 0.9% 1, 600 1200 000 ml @ 100 mls/hr IV . Q10H [facility] Rx#:[id number] Intake, IV Titration 167.029 159.53 Amount Heparin Sod,Pork in 0.45% 167.029 159.53 NaCl 25,000 unit In 0.45 % NaCl 1 250ml.bag @ 11. 03 UNITS/KG/HR 10.006 mls /hr IV .Q24H [facility] Rx#: [id number] Oral 480 Output: Urine 838 604 0237 Other: Voiding Method Indwelling Catheter Indwelling Catheter Indwelling Catheter - Exam Vital Signs: I have reviewed the vital signs. GENERAL: No distress Eyes: Red conjunctiva Head: : Atraumatic external nose and ears, oropharyngeal mucosa is moist withou t lesions or exudates Neck: Symmetric, trachea midline, No thyromegaly, no masses or neck vain pulsation, no neck rigidity CVS: +S1/S2, No murmurs or gallops. Peripheral pulses 2+ and equal in all extremities. RESP: Unlabored respiratory effort. Clear to auscultation bilaterally. Abdomen: Bowel sounds present in all 4 quadrants, Soft to palpation, Nontender/Nondistended, No hepatosplenomegaly, no hernias or masses, no CVA tnderness Musculoskeletal: Extremities w/o deformity, No cyanosis or clubbing, no joint swelling Skin: Warm, Dry. No rashes or lesions - Labs CBC & Chem 7: 06/30/19 08:37 06/30/19 08:37 Labs: Abnormal Lab Results - Last 24 Hours (Table) 06/29/19 06/29/19 06/30/19 Range/Units 20:03 23:56 06:16 APTT (22.0-30.0) sec Potassium (3.5-5.1) mmol/L Glucose (74-99) mg/dL POC Glucose (mg/dL) 153 H 112 H 125 H (75-99) mg/dL Phosphorus (2.5-4.5) mg/dL 06/30/19 06/30/19 06/30/19 Range/Units 08:37 08:37 12:04 APTT 50.5 H (22.0-30.0) sec Potassium 3.1 L (3.5-5.1) mmol/L Glucose 133 H (74-99) mg/dL POC Glucose (mg/dL) 179 H (75-99) mg/dL Phosphorus 2.3 L (2.5-4.5) mg/dL 06/30/19 Range/Units 17:10 APTT (22.0-30.0) sec Potassium (3.5-5.1) mmol/L Glucose (74-99) mg/dL POC Glucose (mg/dL) 186 H (75-99) mg/dL Phosphorus (2.5-4.5) mg/dL Microbiology - Last 24 Hours (Table) 06/27/19 12:51 Blood Culture - Preliminary Blood No Growth after 72 hours 06/28/19 13:15 Urine Culture - Final Urine,Voided Assessment and Plan Assessment: Chronic encephalopathy If MRI of neurological interests I will contact [employer] sales representative tomorrow to see if we can arrange for MRI A. prudencio with RVR Heart diabetic control He remains on Cardizem and anticoagulation Oropharyngeal dysphasia
[2019-06-30] MEDS: ATORVASTATIN 80 MG TAB PO SCH (20:19)
[2019-06-30] MEDS: ALLOPURINOL 100 MG TAB PO SCH (20:19)
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
[2019-06-30 23:48] LABS: Glucose,Whole Blood 151 mg/dL (75-99)
[2019-07-01] MEDS: AMPICILLIN-SULBACTAM 3 GM in SODIUM CHLORIDE 0.9% 100 ML IVPB SCH ×2 (00:09→06:49)
[2019-07-01] MEDS: INSULIN ASPART (NovoLOG) 100 UNIT/ML VIAL SQ SCH ×5 (00:09→18:23)
--- NOTE | 2019-07-01 01:44 | PN ---
PROGRESS NOTE DATE OF SERVICE: 06/30/2019 REASON FOR FOLLOWUP: Leukocytosis, possible aspiration pneumonitis. INTERVAL HISTORY: The patient is currently afebrile. The patient is more awake and alert. He is breathing comfortably. The patient did have a cough which has been noticed mostly during feeding by the family, but not bringing up any sputum. No nausea, no vomiting. No abdominal pain. No diarrhea. PHYSICAL EXAMINATION: Blood pressure 146/81 with a pulse of 68, temperature 97.7, he is 95% on room air. General description is an elderly male lying in bed in no distress. Respiratory system: Unlabored breathing decreased intensity of breath sounds. No wheeze. Heart S1, S2. Regular rate and rhythm. Abdomen soft. No tenderness. LABS: Hemoglobin is 13.8, white count 9.6, BUN of 10, creatinine 0.69. Blood and urine cultures have been negative. DIAGNOSTIC IMPRESSION AND PLAN: Patient with leukocytosis in this patient who was admitted to the hospital with mental status changes with concern for possible aspiration pneumonitis as the patient does not have any obvious clinical focus of infection. Blood and urine cultures have been negative. Abdomen soft on examination and no cellulitis has been noticed. Patient waiting speech pathology evaluation. Continue supportive care. MMODL / IJN: [id number] /
[2019-07-01 06:19] LABS: Glucose,Whole Blood 125 mg/dL (75-99)
[2019-07-01 07:20] LABS: African American GFR (CKD) >90 (>60 ml/min/1.73 sqM); Anion Gap 7 mmol/L; Blood Urea Nitrogen 9 mg/dL (9-20); Calcium 8.4 mg/dL (8.4-10.2); Carbon Dioxide 27 mmol/L (22-30); Chloride 106 mmol/L (98-107); Glucose 126 mg/dL (74-99); Magnesium 1.7 mg/dL (1.6-2.3); Non-African American GFR(CKD) 89 (>60 ml/min/1.73 sqM); Phosphorus 2.5 mg/dL (2.5-4.5); Sodium 140 mmol/L (137-145)
[2019-07-01] MEDS ORDERED: Potassium Replacement Protocol 1 EACH MISC MISCELLANE PRN (09:42)
[2019-07-01] MEDS: METOPROLOL TARTRATE 50 MG TAB PO SCH ×2 (09:45→22:02)
--- NOTE | 2019-07-01 09:48 | P.PN ---
Subjective Chart was reviewed. Patient had extensive neurological workup for confusion and alteration in mental status. I discussed with the family.. We reviewed the patient's pacemaker card. The patient has MRI safe pacemaker. Objective - Vital Signs Vital signs: Vital Signs Temp 98.0 F 07/01/19 04:00 Pulse 77 07/01/19 04:00 Resp 18 07/01/19 04:00 BP 151/89 07/01/19 04:00 Pulse Ox 98 07/01/19 04:00 Intake & Output 06/30/19 07/01/19 07/01/19 18:59 06:59 18:59 Intake Total 480 244.976 0 Output Total 1000 2000 Balance -520 -1755.024 0 Weight 87.9 kg 85.5 kg Intake: Intake, IV Titration 244.976 Amount Heparin Sod,Pork in 0.45% 244.976 NaCl 25,000 unit In 0.45 % NaCl 1 250ml.bag @ 11. 03 UNITS/KG/HR 10.006 mls /hr IV .Q24H [facility] Rx#: [id number] Oral 480 0 Output: Urine 1000 2000 Other: Voiding Method Indwelling Catheter Indwelling Catheter # Voids 0 # Bowel Movements 0 - Exam Vital Signs: I have reviewed the vital signs. GENERAL: No distress Eyes: Red conjunctiva Head: : Atraumatic external nose and ears, oropharyngeal mucosa is moist without lesions or exudates Neck: Symmetric, trachea midline, No thyromegaly, no masses or neck vain pulsation, no neck rigidity CVS: +S1/S2, No murmurs or gallops. Peripheral pulses 2+ and equal in all extremities. RESP: Unlabored respiratory effort. Clear to auscultation bilaterally. Abdomen: Bowel sounds present in all 4 quadrants, Soft to palpation, Nontender/Nondistended, No hepatosplenomegaly, no hernias or masses, no CVA tnderness Musculoskeletal: Extremities w/o deformity, No cyanosis or clubbing, no joint swelling Skin: Warm, Dry. No rashes or lesions - Labs CBC & Chem 7: 06/30/19 08:37 07/01/19 06:07 Labs: Abnormal Lab Results - Last 24 Hours (Table) 06/30/19 06/30/19 06/30/19 Range/Units 08:37 12:04 17:10 APTT (22.0-30.0) sec Potassium 3.1 L (3.5-5.1) mmol/L Glucose 133 H (74-99) mg/dL POC Glucose (mg/dL) 179 H 186 H (75-99) mg/dL Phosphorus 2.3 L (2.5-4.5) mg/dL 06/30/19 07/01/19 07/01/19 Range/Units 23:47 06:07 06:17 APTT (22.0-30.0) sec Potassium 3.0 L (3.5-5.1) mmol/L Glucose 126 H (74-99) mg/dL POC Glucose (mg/dL) 151 H 125 H (75-99) mg/dL Phosphorus (2.5-4.5) mg/dL 07/01/19 Range/Units 06:22 APTT 57.1 H (22.0-30.0) sec Potassium (3.5-5.1) mmol/L Glucose (74-99) mg/dL POC Glucose (mg/dL) (75-99) mg/dL Phosphorus (2.5-4.5) mg/dL Microbiology - Last 24 Hours (Table) 06/27/19 12:51 Blood Culture - Preliminary Blood No Growth after 72 hours Assessment and Plan Assessment: Chronic encephalopathy If MRI of neurological interests I will contact [employer] promotional representative tomorrow to see if we can arrange for MRI A. fib with RVR Heart diabetic control He remains on Cardizem and anticoagulation with heparin infusion with the plan to switch to orals once possible to swallow May consider switching to Lovenox and started on heparin drip. Oropharyngeal dysphasia Dental abscess Unasyn day #3 We'll switch to amoxicillin once able to tolerate oral intake
[2019-07-01 12:01] LABS: Glucose,Whole Blood 134 mg/dL (75-99)
--- NOTE | 2019-07-01 12:01 | ECHOF ---
Referral Reason:possible vegitation MEASUREMENTS -------- HEIGHT: 170.2 cm WEIGHT: 75.7 kg BP: FINDINGS -------- Echo Done 06/23: Limited For Vegetation. Possible Vegetation on PMVL. There is no pericardial effusion. CONCLUSIONS -------- 1. Possible Vegetation on PMVL. 2. There is no pericardial effusion. RESIDENCY DIRECTOR: Ghislaine Daniel RDCS
[2019-07-01] MEDS: AMOXICILLIN 250 MG/5 ML 80 ML BOTTLE PO SCH ×2 (12:36→22:01)
[2019-07-01] MEDS ORDERED: ACETAMINOPHEN TAB 325 MG TAB PO PRN (16:45)
[2019-07-01 18:00] LABS: Glucose,Whole Blood 183 mg/dL (75-99)
[2019-07-01 21:00] LABS: Glucose,Whole Blood 188 mg/dL (75-99)
[2019-07-01] MEDS ORDERED: APIXABAN 5 MG TAB PO SCH (21:00)
[2019-07-01] MEDS: ATORVASTATIN 80 MG TAB PO SCH (22:02)
[2019-07-01] MEDS: APIXABAN 5 MG TAB PO SCH (22:02)
[2019-07-01] MEDS: ALLOPURINOL 100 MG TAB PO SCH (22:02)
--- NOTE | 2019-07-01 23:28 | PN ---
PROGRESS NOTE DATE OF SERVICE: 07/01/2019 REASON FOR FOLLOWUP: Leukocytosis, possible aspiration pneumonitis. INTERVAL HISTORY: The patient is currently afebrile. The patient has been breathing comfortably. The patient denies having any chest pain. He did have some cough. No vomiting has been reported or any diarrhea. PHYSICAL EXAMINATION: Blood pressure 149/80 with a pulse of 68. Temperature 97.6. He is 100% on room air. General description is an elderly male lying in bed in no distress. RESPIRATORY SYSTEM: Unlabored breathing with decreased breath sounds at the base. No wheeze. HEART: S1, S2. Regular rate and rhythm. ABDOMEN: Soft. No tenderness. LABS: No new labs have been obtained today. DIAGNOSTIC IMPRESSION AND PLAN: Patient with leukocytosis which is likely multifactorial in this patient whose white count responded to the Unasyn. Antibiotic should be adjusted to Augmentin instead of amoxicillin, and if the patient's white count remains normal, to continue with Augmentin for about a week to finish his course of therapy. Monitor his clinical course closely. MMMADAIL / MICHELLEN: [id number] /
[2019-07-01 23:30] LABS: Glucose,Whole Blood 234 mg/dL (75-99)
[2019-07-02] MEDS: INSULIN ASPART (NovoLOG) 100 UNIT/ML VIAL SQ SCH ×3 (00:31→11:41)
[2019-07-02] MEDS ORDERED: Potassium Replacement Protocol 1 EACH MISC MISCELLANE PRN (01:15)
[2019-07-02] MEDS: POTASSIUM CHLORIDE ER 20 MEQ TAB.ER PO SCH ×2 (03:43→05:57)
[2019-07-02 04:16] VITALS: RESP 18
[2019-07-02 06:04] LABS: Glucose,Whole Blood 131 mg/dL (75-99)
[2019-07-02 06:43] LABS: Basophils % (A) 0 %; Eosinophils # (A) 0.3 k/uL (0-0.7); Eosinophils % (A) 4 %; HCT 42.8 % (39.0-53.0); HGB 13.8 gm/dL (13.0-17.5); Lymphocytes # (A) 1.8 k/uL (1.0-4.8); Lymphocytes % (A) 27 %; MCHC 32.2 g/dL (31.0-37.0); MCV 93.4 fL (80.0-100.0); Mean Platelet Volume 8.6; Monocytes # (A) 0.4 k/uL (0-1.0); Monocytes % (A) 6 %; Neutrophils # (A) 4.1 k/uL (1.3-7.7); Neutrophils % (A) 61 %; Platelet Count 276 k/uL (150-450); Poikilocytosis Slight; RBC 4.58 m/uL (4.30-5.90); RDW 13.6 % (11.5-15.5); WBC 6.7 k/uL (3.8-10.6)
[2019-07-02 06:53] LABS: African American GFR (CKD) >90 (>60 ml/min/1.73 sqM); Anion Gap 8 mmol/L; Blood Urea Nitrogen 12 mg/dL (9-20); Calcium 8.6 mg/dL (8.4-10.2); Carbon Dioxide 25 mmol/L (22-30); Chloride 107 mmol/L (98-107); Glucose 123 mg/dL (74-99); Non-African American GFR(CKD) 81 (>60 ml/min/1.73 sqM); Potassium 3.6 mmol/L (3.5-5.1); Sodium 140 mmol/L (137-145)
[2019-07-02] MEDS: APIXABAN 5 MG TAB PO SCH (08:29)
[2019-07-02] MEDS: METOPROLOL TARTRATE 50 MG TAB PO SCH (08:29)
--- NOTE | 2019-07-02 08:51 | P.PN ---
Progress Note - Text Progress Note Date: 07/01/19 Case was discussed with patient and nursing. Currently, the patient has improvement in his mentation and is tolerating the dysphagia diet that was recommended after speech evaluation. He is also tolerating oral medication. The patient's family did state that they did not want a PEG tube if it was not 100% necessary. At this point, with the patient tolerating oral intake with a dysphagia diet, we will hold off on PEG tube placement. Please call if any changes in clinical status.
[2019-07-02] MEDS ORDERED: AMOXIC-POT CLAV 875-125MG 1 EACH TAB PO SCH (09:00)
[2019-07-02 11:25] LABS: Glucose,Whole Blood 139 mg/dL (75-99)
[2019-07-02 11:26] VITALS: BP 135/96; PULSE 86; TEMP 98
--- NOTE | 2019-07-02 14:40 | PN ---
PROGRESS NOTE DATE OF SERVICE: 07/02/2019 REASON FOR FOLLOW UP: Leukocytosis, possible aspiration pneumonitis. INTERVAL HISTORY: The patient is currently afebrile. Patient has been breathing comfortably. He seemed to be slightly lethargic today. No vomiting or diarrhea has been reported. PHYSICAL EXAMINATION: His blood pressure is 135/96 with a pulse of 86, temperature 98, he is 98% on room air. General description is an elderly male, up in the bed in no distress. RESPIRATORY SYSTEM: Unlabored breathing. Decreased breath sounds at the bases, no wheeze. HEART: S1, S2. Regular rate and rhythm. ABDOMEN: Soft, no tenderness. LABS: Hemoglobin is 13.8, white count 6.7, BUN of 20, creatinine 0.85. DIAGNOSTIC IMPRESSION AND PLAN: Patient with leukocytosis, possible aspiration pneumonitis. This patient did have . Speech Pathology report still pending and consultation possible thank you surgeries on the case. The patient is on Augmentin white count normal to continue for about a week and monitor his swallowing closely. Continue with supportive care. MMODL / IJN: [id number] /
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
--- NOTE | 2019-07-02 14:52 | P.PN ---
Objective - Vital Signs Vital signs: Vital Signs Temp 98.1 F 06/30/19 12:15 Pulse 70 06/30/19 12:15 Resp 16 06/30/19 12:15 BP 160/89 06/30/19 12:15 Pulse Ox 95 06/30/19 12:15 Intake & Output 06/29/19 06/30/19 06/30/19 18:59 06:59 18:59 Intake Total 079.809 1674.53 480 Output Total 550 890 650 Balance 217.029 469.53 -170 Weight 89.1 kg 87.9 kg 87.9 kg Intake: IV 600 1200 Sodium Chloride 0.9% 1, 600 1200 000 ml @ 100 mls/hr IV . Q10H JENNY Rx#:[id number] Intake, IV Titration 167.029 159.53 Amount Heparin Sod,Pork in 0.45% 167.029 159.53 NaCl 25,000 unit In 0.45 % NaCl 1 250ml.bag @ 11. 03 UNITS/KG/HR 10.006 mls /hr IV .Q24H JENNY Rx#: [id number] Oral 480 Output: Urine 550 890 650 Other: Voiding Method Indwelling Catheter Indwelling Catheter Indwelling Catheter - Labs CBC & Chem 7: 06/30/19 08:37 06/30/19 08:37 Labs: Abnormal Lab Results - Last 24 Hours (Table) 06/29/19 06/29/19 06/30/19 Range/Units 20:03 23:56 06:16 APTT (22.0-30.0) sec Potassium (3.5-5.1) mmol/L Glucose (74-99) mg/dL POC Glucose (mg/dL) 153 H 112 H 125 H (75-99) mg/dL Phosphorus (2.5-4.5) mg/dL 06/30/19 06/30/19 06/30/19 Range/Units 08:37 08:37 12:04 APTT 50.5 H (22.0-30.0) sec Potassium 3.1 L (3.5-5.1) mmol/L Glucose 133 H (74-99) mg/dL POC Glucose (mg/dL) 179 H (75-99) mg/dL Phosphorus 2.3 L (2.5-4.5) mg/dL 06/30/19 Range/Units 17:10 APTT (22.0-30.0) sec Potassium (3.5-5.1) mmol/L Glucose (74-99) mg/dL POC Glucose (mg/dL) 186 H (75-99) mg/dL Phosphorus (2.5-4.5) mg/dL Microbiology - Last 24 Hours (Table) 06/27/19 12:51 Blood Culture - Preliminary Blood No Growth after 72 hours 06/28/19 13:15 Urine Culture - Final Urine,Voided
[2019-07-04 07:20] LABS: Vit B1(Thiamine) 52 ug/L (38-122)
[2019-07-04 18:13] LABS: Arsenic Whole Blood <2 mcg/L (< 23); Mercury Whole Blood <2 mcg/L (< 11)
== END 2019-07-02 15:00 | disposition short-term general hospital (02) | DRG 177 ==
LOC: EC 02:35 → 6NMEDSUR 04:03 → 2SICU 06:16 → OBSVTOIN 08:01 → 3SCARD 06-30 08:36
PROVIDERS: ADMIT Family Medicine; ATTEND Family Medicine
DX: J69.0 Pneumonitis due to inhalation of food and vomit (principal); G92 Toxic encephalopathy; G91.2 (Idiopathic) normal pressure hydrocephalus; I50.22 Chronic systolic (congestive) heart failure; I42.9 Cardiomyopathy, unspecified; I48.0 Paroxysmal atrial fibrillation; E11.9 Type 2 diabetes mellitus without complications; E78.5 Hyperlipidemia, unspecified; F01.50 Vascular dementia, unspecified severity, without behavioral disturbance, psychotic disturbance, mood disturbance, and anxiety; G47.30 Sleep apnea, unspecified; H91.90 Unspecified hearing loss, unspecified ear; I11.0 Hypertensive heart disease with heart failure; I25.10 Atherosclerotic heart disease of native coronary artery without angina pectoris; I35.0 Nonrheumatic aortic (valve) stenosis; I65.22 Occlusion and stenosis of left carotid artery; I71.2 Thoracic aortic aneurysm, without rupture; K02.9 Dental caries, unspecified; K04.7 Periapical abscess without sinus; M79.7 Fibromyalgia; N40.0 Benign prostatic hyperplasia without lower urinary tract symptoms; R47.02 Dysphasia; R62.7 Adult failure to thrive; Z79.01 Long term (current) use of anticoagulants; I25.2 Old myocardial infarction; Z79.82 Long term (current) use of aspirin; Z79.899 Other long term (current) drug therapy; Z82.49 Family history of ischemic heart disease and other diseases of the circulatory system; Z90.01 Acquired absence of eye; Z95.810 Presence of automatic (implantable) cardiac defibrillator
CPT/HCPCS: 36600; 70450; 71045; 80048; 80053; 81001; 82175; 82525; 82570; 82805; 83655; 83735; 83825; 84100; 84425; 84443; 85025; 85027; 85610; 85730; 87040; 87086; 93308; 99285

== ENCOUNTER → 2020-05-24 | Outpatient (CLI) | payer MEDICARE ==
[2020-05-24 16:33] LABS: Basophils # (A) 0.1 k/uL (0-0.2); Basophils % (A) 1 %; Eosinophils # (A) 0.5 k/uL (0-0.7); Eosinophils % (A) 7 %; HCT 43.5 % (39.0-53.0); HGB 14.3 gm/dL (13.0-17.5); Lymphocytes # (A) 1.8 k/uL (1.0-4.8); Lymphocytes % (A) 26 %; MCH 31.9 pg (25.0-35.0); MCHC 32.9 g/dL (31.0-37.0); Monocytes # (A) 0.5 k/uL (0-1.0); Monocytes % (A) 7 %; Neutrophils # (A) 4.1 k/uL (1.3-7.7); Neutrophils % (A) 58 %; Platelet Count 152 k/uL (150-450); RBC 4.48 m/uL (4.30-5.90); RDW 14.4 % (11.5-15.5)
[2020-05-24 16:47] LABS: Appearance,Urine Clear (Clear); Bilirubin,Urine Negative (Negative); Blood,Urine Negative (Negative); Color,Urine Yellow; Glucose,Urine (UA) Negative (Negative); Ketones,Urine Negative (Negative); Leukocyte Esterase,Urine Negative (Negative); Nitrite,Urine Negative (Negative); Protein,Urine Negative (Negative); Specific Gravity,Urine 1.011 (1.001-1.035); Urobilinogen,Urine <2.0 mg/dL (<2.0)
[2020-05-24 20:49] LABS: Erythrocyte Sedimentation Rate 52 mm/hr (0-15)
[2020-05-25 01:37] LABS: % Iron Saturation 39.04 (15.00-50.00); ALT 54 U/L (10-49); AST 35 U/L (14-35); African American GFR (CKD) 45.2 (60.0-200.0); Albumin/Globulin Ratio 1.44 (1.60-3.17); Alkaline Phosphatase 98 U/L (41-126); C Reactive Protein <0.4 mg/dL (0.0-0.8); Calcium 9.6 mg/dL (8.7-10.3); Carbon Dioxide 23.6 mmol/L (21.6-31.8); Chloride 101 mmol/L (96-109); Chol/HDL Ratio 4.89; Cholesterol 132 mg/dL (0-200); Creatine Kinase 236 U/L (35-257); Folate, Serum 10.9 ng/mL; Globulin 2.7 g/dL (1.6-3.3); Glucose 205 mg/dL (70-110); Iron 73 ug/dL (65-175); LDH 207 U/L (120-246); Magnesium 1.6 mg/dL (1.5-2.4); PSA Annual Screen 7.8 ng/mL (0.0-4.0); Potassium 4.1 mmol/L (3.5-5.5); Rheumatoid Factor, Qnt <4 IU/mL (0-13); Sodium 136 mmol/L (135-145); Total Bilirubin 0.5 mg/dL (0.3-1.2); Total Iron Binding Capacity 187 ug/dL (228-460); Total Protein 6.6 g/dL (6.2-8.2)
[2020-05-25 03:03] LABS: Hemoglobin A1C 8.6 % (4.0-6.0)
[2020-05-25 23:15] LABS: Anti-DNA, DS unit <1.0 IU/mL; DNA Double-Stranded NEGATIVE (NEGATIVE)
[2020-05-25 23:16] LABS: Anti-Smith Ab Interp NEGATIVE (NEGATIVE)
== END | disposition home or self-care (01) ==
LOC: LABWHC1 15:40
PROVIDERS: ATTEND Family Medicine
DX: E11.9 Type 2 diabetes mellitus without complications (principal); I10 Essential (primary) hypertension; I25.10 Atherosclerotic heart disease of native coronary artery without angina pectoris; R53.83 Other fatigue; M13.0 Polyarthritis, unspecified; R41.0 Disorientation, unspecified; Z79.899 Other long term (current) drug therapy
CPT/HCPCS: 86235 ×3; 80061; 80053; 85652; 84443; 82607; 82550; 82746; 83540; 83550; 83615; 83735; 84550; 85025; 86140; 86431; 81003; 84402; 84403; 86618; 82306; 86780; 86038; 86225; 87086; 83036; 36415; G0103

== ENCOUNTER → 2020-05-31 | Outpatient (CLI) | payer MEDICARE ==
--- NOTE | 2020-05-31 14:03 | US ---
EXAMINATION TYPE: US kidneys/renal and bladder DATE OF EXAM: 05/31/2020 COMPARISON: NONE CLINICAL HISTORY: N18.9 Chronic kidney disease, unspecified. CKD EXAM MEASUREMENTS: Right Kidney: 11.7 x 6.2 x 5.0 cm Left Kidney: 11.6 x 5.2 x 4.0 cm Right Kidney: no hydronephrosis or masses seen Left Kidney: no hydronephrosis or masses seen Bladder: wnl Bilateral Jets seen: yes Enlarged prostate consistent with BPH, correlate clinically. There is no evidence for hydronephrosis at this point in time. Some increased cortical echogenicity b ilaterally. No nephrolithiasis is seen. No masses are identified. The urinary bladder is satisfacto rily distended. Bilateral ureteral jets are seen. IMPRESSION: No hydronephrosis noted bilaterally.
== END | disposition home or self-care (01) ==
LOC: RADUSWWP 12:47
PROVIDERS: ATTEND Family Medicine
DX: N18.9 Chronic kidney disease, unspecified (principal)
CPT/HCPCS: 76770

== ENCOUNTER → 2020-11-15 | Outpatient (CLI) | payer MEDICARE ==
--- NOTE | 2020-11-15 12:25 | FL ---
EXAMINATION TYPE: FL barium swallow w video DATE OF EXAM: 11/15/2020 MODIFIED SWALLOW / DEGLUTITION STUDY CLINICAL HISTORY: Dysphagia. TECHNIQUE: Deglutition study is performed utilizing thin liquid barium, honey and nectar thick liqui d barium, barium thick applesauce, and barium coated cracker. 3.03 minutes of fluoro time and 0 imag es obtained. COMPARISON: Prior modified barium swallow report June 11, 2019. FINDINGS: The oral and pharyngeal phases show satisfactory initiation and propagation with all modali ties tested. Satisfactory mastication is seen with solid modalities tested. There is one episode of tiny amount of aspiration with thin liquid barium when utilizing straw. No penetration or aspiration with other modalities. No significant pharyngeal residue was appreciated. IMPRESSION: Single episode of tiny aspiration with thin liquid barium with straw. No penetration or a spiration otherwise seen. Please refer to speech therapist notes for further details if necessary.
== END | disposition home or self-care (01) ==
LOC: RADFLMAIN 11:06
PROVIDERS: ATTEND Family Medicine
DX: R13.10 Dysphagia, unspecified (principal)
CPT/HCPCS: 74230

== ENCOUNTER 2020-12-16 13:06 | Observation (INO) | payer MEDICARE ==
[2020-12-16] MEDS ORDERED: SODIUM CHLORIDE 0.9% 1,000 ML IV ONE ×2 (13:16→16:53)
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
[2020-12-16 13:33] LABS: Glucose,Whole Blood 129 mg/dL (75-99)
[2020-12-16 13:54] LABS: Basophils # (A) 0.1 k/uL (0-0.2); Basophils % (A) 1 %; Eosinophils # (A) 0.2 k/uL (0-0.7); Eosinophils % (A) 3 %; HCT 48.7 % (39.0-53.0); HGB 17.1 gm/dL (13.0-17.5); Lymphocytes # (A) 1.6 k/uL (1.0-4.8); Lymphocytes % (A) 21 %; MCH 33.7 pg (25.0-35.0); MCHC 35.1 g/dL (31.0-37.0); Mean Platelet Volume 8.9; Monocytes # (A) 0.7 k/uL (0-1.0); Monocytes % (A) 10 %; Neutrophils # (A) 4.8 k/uL (1.3-7.7); Neutrophils % (A) 63 %; Platelet Count 191 k/uL (150-450); RBC 5.07 m/uL (4.30-5.90); RDW 14.9 % (11.5-15.5); WBC 7.6 k/uL (3.8-10.6)
[2020-12-16 14:05] LABS: Albumin 4.9 g/dL (3.5-5.0); Calcium 10.6 mg/dL (8.4-10.2); Total Bilirubin 1.7 mg/dL (0.2-1.3); Total Protein 9.1 g/dL (6.3-8.2)
[2020-12-16 14:20] LABS: Potassium 4.8 mmol/L (3.5-5.1)
--- NOTE | 2020-12-16 15:34 | CT ---
EXAMINATION TYPE: CT brain wo con DATE OF EXAM: 12/16/2020 COMPARISON: 06/27/2019 INDICATION: Fall per patient family DLP: 1217.4 mGycm, Automated exposure control for dose reduction was used. CONTRAST: None CT of the brain is performed utilizing 3 mm thick sections through the posterior fossa and 3 mm thick sections through the remaining calvarium. Study is performed within 24 hours of arrival to the hosp ital. No abnormal hyperdensity is present to suggest an acute intracranial hemorrhage. No mass lesion is evident. No acute infarcts are evident. There is diffuse prominence of the ventricles with some prominence of the sulci which can be compatib le with atrophy. Temporal horns may have some increased rounding from the comparison study. Paranasal sinuses and mastoid air cells within the [id number] are clear. IMPRESSIONS: 1. There may be some increasing rounding of the temporal horns of the lateral ventricles which coul d suggest some underlying normal pressure hydrocephalus. Consider MRI for additional evaluation. 2. No acute posttraumatic changes.
--- NOTE | 2020-12-16 15:51 | XR ---
EXAMINATION TYPE: XR chest 2V DATE OF EXAM: 12/16/2020 COMPARISON: 06/30/2019 HISTORY: Altered mental status TECHNIQUE: Frontal and lateral views of the chest are obtained. FINDINGS: The lungs are grossly clear. Enlargement of the cardiac silhouette appears similar with postoperative changes and AICD leads. IMPRESSION: No acute cardiopulmonary process.
[2020-12-16 16:05] LABS: INR 1.2 (<1.2); Partial Thromboplastin Time 24.2 sec (22.0-30.0)
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
[2020-12-16 16:22] LABS: Appearance,Urine Clear (Clear); Bilirubin,Urine Negative (Negative); Blood,Urine Negative (Negative); Color,Urine Yellow; Glucose,Urine (UA) Negative (Negative); Hyaline Casts,Urine 1 /lpf (0-2); Ketones,Urine Negative (Negative); Leukocyte Esterase,Urine Trace (Negative); Mucus,Urine Rare /hpf; Nitrite,Urine Negative (Negative); PH, Urine 6.5 (5.0-8.0); Protein,Urine 1+ (Negative); RBC,Urine 1 /hpf (0-5); Specific Gravity,Urine 1.016 (1.001-1.035); Urobilinogen,Urine <2.0 mg/dL (<2.0); WBC,Urine 1 /hpf (0-5)
[2020-12-16 16:28] LABS: Amphetamine Screen,Urine Not Detected (NotDetected); Barbiturate Screen,Urine Not Detected (NotDetected); Benzodiazepines Screen,Urine Not Detected (NotDetected); Cocaine Screen,Urine Not Detected (NotDetected); Methadone Screen, Urine Not Detected (NotDetected); Opiate Screen,Urine Not Detected (NotDetected); Oxycodone Screen, Urine Not Detected (NotDetected); Phencyclidine Screen,Urine Not Detected (NotDetected); Tricyclic Antidepressant,Urine Not Detected (NotDetected); Urn Cannabinoid Scrn Not Detected (NotDetected)
[2020-12-16] MEDS: INSULIN ASPART (NovoLOG) 100 UNIT/ML VIAL SQ SCH ×2 (17:17→21:28)
[2020-12-16 17:18] LABS: Glucose,Whole Blood 109 mg/dL (75-99)
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
[2020-12-16] MEDS ORDERED: QUEtiapine 25 MG TAB PO STA (19:56)
[2020-12-16] MEDS: MELATONIN 5 MG TABLET PO SCH (20:56)
[2020-12-16] MEDS: METOPROLOL TARTRATE 50 MG TAB PO SCH (20:57)
[2020-12-16] MEDS: allopurinoL 100 MG TAB PO SCH (20:57)
[2020-12-16] MEDS: diphenhydrAMINE 50 MG CAP PO SCH (20:57)
[2020-12-16] MEDS: APIXABAN 2.5 MG TABLET PO SCH (20:57)
[2020-12-16] MEDS: GABAPENTIN 300 MG CAP PO SCH (21:09)
[2020-12-16 21:12] LABS: Glucose,Whole Blood 162 mg/dL (75-99)
[2020-12-16] MEDS: INSULIN DETEMIR (LEVEMIR) 100 UNIT/ML SYR SQ SCH (21:28)
[2020-12-16] MEDS: HYDROcodone/APAP 5-325MG 1 EACH TAB PO PRN (23:30)
[2020-12-16] MEDS: ARTIFICIAL TEARS-HYPROMELLOSE DROPS 15 ML BTL BOTH EYES PRN (23:30)
[2020-12-17 07:18] LABS: Glucose,Whole Blood 111 mg/dL (75-99)
[2020-12-17] MEDS: INSULIN ASPART (NovoLOG) 100 UNIT/ML VIAL SQ SCH ×4 (08:22→20:51)
[2020-12-17] MEDS: allopurinoL 100 MG TAB PO SCH ×2 (08:40→20:05)
[2020-12-17] MEDS: PANTOPRAZOLE 40 MG TABLET PO SCH (08:40)
[2020-12-17] MEDS: FUROSEMIDE 40 MG TAB PO SCH ×2 (08:40→18:03)
[2020-12-17] MEDS: GABAPENTIN 300 MG CAP PO SCH ×3 (08:40→20:05)
[2020-12-17] MEDS: amLODIPine 5 MG TAB PO SCH (08:40)
[2020-12-17] MEDS: APIXABAN 2.5 MG TABLET PO SCH (08:40)
[2020-12-17] MEDS: METOPROLOL TARTRATE 50 MG TAB PO SCH ×2 (08:40→20:04)
[2020-12-17] MEDS: TAMSULOSIN 0.4 MG CAP.ER.24H PO SCH (08:40)
[2020-12-17] MEDS: ATORVASTATIN 80 MG TAB PO SCH (08:40)
[2020-12-17 11:41] LABS: Glucose,Whole Blood 132 mg/dL (75-99)
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
[2020-12-17 16:31] LABS: Glucose,Whole Blood 210 mg/dL (75-99)
[2020-12-17] MEDS: HYDROcodone/APAP 5-325MG 1 EACH TAB PO PRN (18:05)
[2020-12-17] MEDS: MELATONIN 5 MG TABLET PO SCH (20:04)
[2020-12-17] MEDS: diphenhydrAMINE 50 MG CAP PO SCH (20:06)
[2020-12-17 20:38] LABS: Glucose,Whole Blood 117 mg/dL (75-99)
--- NOTE | 2020-12-17 20:49 | P.PN ---
Subjective Progress Note Date: 12/17/20 Principal diagnosis: confusion Patient is 85-year-old male with a complex past medical history including diabetes, fibromyalgia, hard of hearing, dyslipidemia, hypertension, and coronary artery disease with history of myocardial infarction who presented secondary to worsening cognitive disturbances and falls. He does have an appointment scheduled with neuropsych next week and if that does not demonstrate Lewy body dementia will be followed at the normal pressure hydrocephalus clinic associated with [facility]. His sister brought him to the hospital because he has been unsafety keep at home due to his worsening confusion and frequent falls. In the emergency room he underwent an extensive evaluation. Laboratory analysis was consistent with his known chronic kidney disease and baseline creatinine of approximately 1.3. His known to have a slight increase in his calcium level, bilirubin, AST, and total protein levels. Urine drug screen was negative. CT brain showed possible increasing rounding of the temporal horns on lateral ventricles suggestive of possible underlying normal pressure hydrocephalus. Chest x-ray showed no acute process, mild anterior wedging of T12 and L1 recommended for clinical correlation. Patient seen and examined at bedside. He is confused and does not think he is in the hospital and is asking for money to catch Right home. He denies any pain, nausea, or vomiting. Neurology was able to speak with the family and they are concerned about his frequent falling at home and his increasing confusion. They reiterated the upcoming appointments and feel that he should have rehab rather than returning home. General: non toxic, no distress, appears at stated age Derm: warm, dry Head: atraumatic, normocephalic, symmetric Eyes: EOMI, no lid lag, anicteric sclera Mouth: no lip lesion, mucus membranes moist Cardiovascular: S1S2 reg, no murmur, positive posterior tibial pulse bilateral, Lungs: CTA bilateral, no rhonchi, no rales , no accessory muscle use Abdominal: soft, nontender to palpation, no guarding, no appreciable organomegaly Ext: no gross muscle atrophy, no edema, no contractures Neuro: CN II-XI grossly intact, no focal neuro deficits Psych: Alert to self, not oriented to place or year, flat affect Spine: No spinous process tenderness. Patient with hypercalcemia, increased protein level, increased alkaline phosphatase and changes on lumbar spine x-ray -Repeat calcium and protein level in a.m. after fluid hydration if not improved concerns for possible multiple myeloma -Consult nephrology in conjunction with patient chronic kidney disease. Mild transaminitis -Check liver ultrasound History of NPH probably getting worse -Neurology recommendations appreciated -PT/OT evaluation -Continue with outpatient neuropsych testing as well as follow-up with [facility] Diabetes mellitus type 2 -Levemir, sliding scale insulin -Follow blood sugars Hypertension - hold lasix - Continue with Norvasc, metoprolol Dyslipidemia -statin Objective - Vital Signs Vital signs: Vital Signs Temp 98.7 F 12/17/20 19:40 Pulse 58 L 12/17/20 19:40 Resp 18 12/17/20 19:49 BP 129/80 12/17/20 19:40 Pulse Ox 90 L 12/17/20 19:40 Intake & Output 12/17/20 12/17/20 12/18/20 06:59 18:59 06:59 Intake Total 900 Output Total 300 200 Balance 600 -200 Intake: Intake, IV Titration 900 Amount Sodium Chloride 0.9% 1, 900 000 ml @ 75 mls/hr IV . [id number] Rx#:[id number] Output: Urine 300 200 Other: Voiding Method Urinal Urinal Urinal # Voids 2 # Bowel Movements 1 2 - Labs CBC & Chem 7: 12/16/20 13:30 12/16/20 13:30 Labs: Abnormal Lab Results - Last 24 Hours (Table) 12/16/20 12/17/20 12/17/20 Range/Units 21:10 07:12 11:34 POC Glucose (mg/dL) 162 H 111 H 132 H (75-99) mg/dL 12/17/20 12/17/20 Range/Units 16:29 20:36 POC Glucose (mg/dL) 210 H 117 H (75-99) mg/dL
[2020-12-17] MEDS: INSULIN DETEMIR (LEVEMIR) 100 UNIT/ML SYR SQ SCH (20:51)
[2020-12-17] MEDS: SODIUM CHLORIDE 0.45% 1,000 ML IV SCH (23:09)
[2020-12-18 06:47] LABS: Glucose,Whole Blood 110 mg/dL (75-99)
[2020-12-18] MEDS: INSULIN ASPART (NovoLOG) 100 UNIT/ML VIAL SQ SCH ×4 (06:58→20:54)
[2020-12-18] MEDS: TAMSULOSIN 0.4 MG CAP.ER.24H PO SCH ×2 (07:34→08:29)
[2020-12-18] MEDS: ATORVASTATIN 80 MG TAB PO SCH ×2 (07:34→08:29)
[2020-12-18] MEDS: allopurinoL 100 MG TAB PO SCH ×3 (07:34→20:53)
[2020-12-18] MEDS: PANTOPRAZOLE 40 MG TABLET PO SCH ×2 (07:34→08:29)
[2020-12-18] MEDS: GABAPENTIN 300 MG CAP PO SCH (07:34)
[2020-12-18] MEDS: amLODIPine 5 MG TAB PO SCH ×2 (07:35→08:29)
[2020-12-18 07:59] LABS: HCT 45.1 % (39.0-53.0); HGB 15.4 gm/dL (13.0-17.5); MCH 33.2 pg (25.0-35.0); MCV 97.5 fL (80.0-100.0); Mean Platelet Volume 8.1; Platelet Count 187 k/uL (150-450); RBC 4.63 m/uL (4.30-5.90); RDW 15.2 % (11.5-15.5); WBC 6.8 k/uL (3.8-10.6)
[2020-12-18 08:01] LABS: Ionized Calcium 5.1 mg/dL (4.5-5.3)
[2020-12-18] MEDS: METOPROLOL TARTRATE 50 MG TAB PO SCH ×2 (08:03→20:53)
[2020-12-18] MEDS: SODIUM CHLORIDE 0.45% 1,000 ML IV SCH ×2 (08:09→23:10)
[2020-12-18 08:13] LABS: ALT 43 U/L (4-49); AST 55 U/L (17-59); African American GFR (CKD) 64 (>60 ml/min/1.73 sqM); Albumin 3.8 g/dL (3.5-5.0); Albumin/Globulin Ratio 1.2; Alkaline Phosphatase 110 U/L (38-126); Anion Gap 11 mmol/L; Blood Urea Nitrogen 26 mg/dL (9-20); Calcium 9.8 mg/dL (8.4-10.2); Carbon Dioxide 26 mmol/L (22-30); Chloride 104 mmol/L (98-107); Globulin 3.2 g/dL; Glucose 114 mg/dL (74-99); Non-African American GFR(CKD) 55 (>60 ml/min/1.73 sqM); Potassium 4.2 mmol/L (3.5-5.1); Sodium 141 mmol/L (137-145); Total Bilirubin 1.1 mg/dL (0.2-1.3)
[2020-12-18] MEDS: GABAPENTIN 100 MG CAP PO SCH ×3 (08:29→21:00)
--- NOTE | 2020-12-18 09:33 | US ---
EXAMINATION TYPE: US liver DATE OF EXAM: 12/18/2020 COMPARISON: CT chest, UGI CLINICAL HISTORY: transaminitis. EXAM MEASUREMENTS: Liver Length: 12.4 cm Gallbladder Wall: 0.3 cm CBD: 0.3 cm Right Kidney: 10.6 x 5.0 x 5.9 cm Technically limited US by decreased patient rotation. Pancreas: hyperechoic; thick wall cyst (adynamic area and may be pseudocyst ) noted mid pancreas = 2 .5 x 2.0 x 1.8cm. Liver: scanned intercostally for best liver views; heterogeneous appearance and small left lobe. No b iliary dilatation is evident. No discrete masses. Gallbladder: multiple shadowing gallstones nearly filling the entire gallbladder lumen; thickened wa ll. Evidence for sonographic Watkins's sign: tender here CBD: wnl Right Kidney: No hydronephrosis or masses seen; lobular cortex noted IMPRESSION: 1. Cholelithiasis. There is a positive Watkins sign. Clinical consideration for acute cholecystitis is recommended. 2. Somewhat hyperechoic pancreas contains a hypoechoic focal area. Correlate for small pseudocyst. Ot her etiologies bleeding cystadenoma and cystadenocarcinoma should be considered. Consider additional workup with dedicated contrast CT abdomen for pancreas protocol. MRI is an alternative imaging modali ty. 3. The liver without discrete focal abnormalities.
[2020-12-18 11:29] LABS: Glucose,Whole Blood 172 mg/dL (75-99)
[2020-12-18] MEDS: HYDROcodone/APAP 5-325MG 1 EACH TAB PO PRN ×2 (12:12→23:29)
--- NOTE | 2020-12-18 13:35 | P.PN ---
Subjective Progress Note Date: 12/18/20 Principal diagnosis: confusion Patient is 85-year-old male with a complex past medical history including diabetes, fibromyalgia, hard of hearing, dyslipidemia, hypertension, and coronary artery disease with history of myocardial infarction who presented secondary to worsening cognitive disturbances and falls. He does have an appointment scheduled with neuropsych next week and if that does not demonstrate Lewy body dementia will be followed at the normal pressure hydrocephalus clinic associated with [facility]. His sister brought him to the hospital because he has been unsafety keep at home due to his worsening confusion and frequent falls. In the emergency room he underwent an extensive evaluation. Laboratory analysis was consistent with his known chronic kidney disease and baseline creatinine of approximately 1.3. His known to have a slight increase in his calcium level, bilirubin, AST, and total protein levels. Urine drug screen was negative. CT brain showed possible increasing rounding of the temporal horns on lateral ventricles suggestive of possible underlying normal pressure hydrocephalus. Chest x-ray showed no acute process, mild anterior wedging of T12 and L1 recommended for clinical correlation. Liver US showed cholelithiasis. Patient seen and examined at bedside. Still confused, no pain, no nausea, hungry. General: non toxic, no distress, appears at stated age Derm: warm, dry Head: atraumatic, normocephalic, symmetric Eyes: EOMI, no lid lag, anicteric sclera Mouth: no lip lesion, mucus membranes moist Cardiovascular: S1S2 reg, no murmur, positive posterior tibial pulse bilateral, Lungs: Decreased bs bilateral, no rhonchi, no rales , no accessory muscle use Abdominal: soft, nontender to palpation, no guarding, no appreciable organomegaly Ext: no gross muscle atrophy, no edema, no contractures Neuro: CN II-XI grossly intact, no focal neuro deficits Psych: Alert to self, not oriented to place or year, flat affect Spine: No spinous process tenderness. Mild transaminitis, resolved, with cholelithiasis - suspect asymptomicatic at this time as no consistent pain and transaminitis resolved - repeat CMP in AM, if worsens consult Dr. Ramirez who has seen the patient in the past. History of NPH probably getting worse -Neurology recommendations appreciated -PT/OT evaluation -Continue with outpatient neuropsych testing as well as follow-up with [facility] NPH clinic Diabetes mellitus type 2 -Levemir, sliding scale insulin -Follow blood sugars Hypertension - hold lasix - Continue with Norvasc, metoprolol Dyslipidemia -statin Hyercalcemia due to dehydration, resolved. DVT prophylaxis: SCDs Discussed with: patient and nursing Anticipated discharge: Sunday Anticipated discharge place: [facility] A total of 35 minutes was spent on the care of this complex patient more than 50% of the time was spent in counseling and care coordination. Objective - Vital Signs Vital signs: Vital Signs Temp 97.5 F L 12/18/20 07:40 Pulse 61 12/18/20 07:40 Resp 16 12/18/20 07:40 BP 146/77 12/18/20 07:40 Pulse Ox 98 12/18/20 07:40 Intake & Output 12/17/20 12/18/20 12/18/20 18:59 06:59 18:59 Output Total 200 325 Balance -200 -325 Output: Urine 200 325 Other: Voiding Method Urinal Urinal Urinal Incontinent # Voids 2 2 # Bowel Movements 2 1 - Labs CBC & Chem 7: 12/18/20 06:45 12/18/20 06:45 Labs: Abnormal Lab Results - Last 24 Hours (Table) 12/17/20 12/17/20 12/18/20 Range/Units 16:29 20:36 06:45 BUN 26 H (9-20) mg/dL Glucose 114 H (74-99) mg/dL POC Glucose (mg/dL) 210 H 117 H (75-99) mg/dL 12/18/20 12/18/20 Range/Units 06:45 11:28 BUN (9-20) mg/dL Glucose (74-99) mg/dL POC Glucose (mg/dL) 110 H 172 H (75-99) mg/dL
[2020-12-18 16:49] LABS: Glucose,Whole Blood 132 mg/dL (75-99)
[2020-12-18 20:34] LABS: Glucose,Whole Blood 153 mg/dL (75-99)
[2020-12-18] MEDS: diphenhydrAMINE 50 MG CAP PO SCH (20:53)
[2020-12-18] MEDS: MELATONIN 5 MG TABLET PO SCH (20:53)
[2020-12-18] MEDS: INSULIN DETEMIR (LEVEMIR) 100 UNIT/ML SYR SQ SCH (20:54)
[2020-12-19 06:45] LABS: Glucose,Whole Blood 71 mg/dL (75-99)
[2020-12-19] MEDS: INSULIN ASPART (NovoLOG) 100 UNIT/ML VIAL SQ SCH ×4 (08:36→21:12)
[2020-12-19] MEDS: ATORVASTATIN 80 MG TAB PO SCH (08:36)
[2020-12-19] MEDS: amLODIPine 5 MG TAB PO SCH (08:36)
[2020-12-19] MEDS: METOPROLOL TARTRATE 50 MG TAB PO SCH ×2 (08:37→21:12)
[2020-12-19] MEDS: HYDROcodone/APAP 5-325MG 1 EACH TAB PO PRN (08:37)
[2020-12-19] MEDS: GABAPENTIN 100 MG CAP PO SCH ×3 (08:37→21:12)
[2020-12-19] MEDS: PANTOPRAZOLE 40 MG TABLET PO SCH (08:37)
[2020-12-19] MEDS: allopurinoL 100 MG TAB PO SCH ×2 (08:37→21:12)
[2020-12-19] MEDS: TAMSULOSIN 0.4 MG CAP.ER.24H PO SCH (08:40)
[2020-12-19 09:53] LABS: HGB 15.2 g/dL (13.0-17.0); MCH 31.9 pg (27.0-32.0); MCV 96.6 fL (80.0-97.0); Mean Platelet Volume 10.9 fL (9.5-12.2); Platelet Count 196 X 10*3/uL (140-440); RBC 4.76 X 10*6/uL (4.40-5.60); RDW 15.1 % (11.5-14.5); WBC 7.63 X 10*3/uL (4.50-10.00)
[2020-12-19 09:55] LABS: African American GFR (CKD) 57.7 (60.0-200.0); Albumin/Globulin Ratio 1.25 (1.60-3.17); Anion Gap 13.7 mmol/L (4.00-12.00); BUN/Creat Ratio 17.69 Ratio (12.00-20.00); Calcium 9.6 mg/dL (8.7-10.3); Carbon Dioxide 23.3 mmol/L (21.6-31.8); Globulin 3.2 g/dL (1.6-3.3); Non-African American GFR(CKD) 49.8 (60.0-200.0); Potassium 3.5 mmol/L (3.5-5.5); Total Bilirubin 1.2 mg/dL (0.2-1.2); Total Protein 7.2 g/dL (6.2-8.2)
[2020-12-19] MEDS: ARTIFICIAL TEARS-HYPROMELLOSE DROPS 15 ML BTL BOTH EYES PRN (11:00)
[2020-12-19 11:32] LABS: Glucose,Whole Blood 111 mg/dL (75-99)
[2020-12-19 16:45] LABS: Glucose,Whole Blood 120 mg/dL (75-99)
--- NOTE | 2020-12-19 18:07 | P.PN ---
Subjective Progress Note Date: 12/19/20 Principal diagnosis: confusion Patient is 85-year-old male with a complex past medical history including diabetes, fibromyalgia, hard of hearing, dyslipidemia, hypertension, and coronary artery disease with history of myocardial infarction who presented secondary to worsening cognitive disturbances and falls. He does have an appointment scheduled with neuropsych next week and if that does not demonstrate Lewy body dementia will be followed at the normal pressure hydrocephalus clinic associated with . His sister brought him to the hospital because he has been unsafety keep at home due to his worsening confusion and frequent falls. In the emergency room he underwent an extensive evaluation. Laboratory analysis was consistent with his known chronic kidney disease and baseline creatinine of approximately 1.3. His known to have a slight increase in his calcium level, bilirubin, AST, and total protein levels. Urine drug screen was negative. CT brain showed possible increasing rounding of the temporal horns on lateral ventricles suggestive of possible underlying normal pressure hydrocephalus. Chest x-ray showed no acute process, mild anterior wedging of T12 and L1 recommended for clinical correlation. Liver US showed cholelithiasis. Patient seen and examined at bedside. Still confused, c/o of back pain to nurse today, denies abd pain. General: non toxic, no distress, appears at stated age Derm: warm, dry Head: atraumatic, normocephalic, symmetric Eyes: EOMI left, no lid lag, anicteric sclera, false eye right with erythema of the lid Mouth: no lip lesion, mucus membranes moist Cardiovascular: S1S2 reg, no murmur, positive posterior tibial pulse bilateral, Lungs: Decreased bs bilateral, no rhonchi, no rales , no accessory muscle use Abdominal: soft, nontender to palpation, no guarding, no appreciable organomegaly Ext: no gross muscle atrophy, no edema, no contractures Neuro: CN II-XI grossly intact, no focal neuro deficits Psych: Alert to self, not oriented to place or year, flat affect Spine: No spinous process tenderness. Mild transaminitis, with cholelithiasis - suspect asymptomicatic - repeat CMP in AM, if worsens consult Dr. Ramirez who has seen the patient in the past. - WBC normal History of NPH probably getting worse -Neurology recommendations appreciated -PT/OT evaluation -Continue with outpatient neuropsych testing as well as follow-up with [facility] NPH clinic Diabetes mellitus type 2 -Levemir, sliding scale insulin -Follow blood sugars Hypertension - hold lasix - Continue with Norvasc, metoprolol Dyslipidemia -statin Hyercalcemia due to dehydration, resolved. DVT prophylaxis: SCDs Discussed with: patient and nursing Anticipated discharge: Sunday Anticipated discharge place: [facility] A total of 35 minutes was spent on the care of this complex patient more than 50% of the time was spent in counseling and care coordination. Objective - Vital Signs Vital signs: Vital Signs Temp 98.2 F 12/19/20 14:00 Pulse 85 12/19/20 14:00 Resp 18 12/19/20 14:00 BP 152/107 12/19/20 14:00 Pulse Ox 95 12/19/20 14:00 Intake & Output 12/18/20 12/19/20 12/19/20 18:59 06:59 18:59 Intake Total 540 150 Balance 540 150 Intake: Oral 540 150 Other: Voiding Method Urinal Urinal Incontinent Incontinent # Voids 2 2 3 - Labs CBC & Chem 7: 12/19/20 04:20 12/19/20 04:20 Labs: Abnormal Lab Results - Last 24 Hours (Table) 12/18/20 12/19/20 12/19/20 Range/Units 20:32 04:20 04:20 RDW 15.1 H (11.5-14.5) % Anion Gap 13.70 H (4.00-12.00) mmol/L Est GFR (CKD-EPI)AfAm 57.7 L (60.0-200.0) Est GFR (CKD-EPI)NonAf 49.8 L (60.0-200.0) POC Glucose (mg/dL) 153 H (75-99) mg/dL AST 57 H (14-35) U/L ALT 51 H (10-49) U/L Albumin/Globulin Ratio 1.25 L (1.60-3.17) g/dL 12/19/20 12/19/20 12/19/20 Range/Units 06:44 11:31 16:43 RDW (11.5-14.5) % Anion Gap (4.00-12.00) mmol/L Est GFR (CKD-EPI)AfAm (60.0-200.0) Est GFR (CKD-EPI)NonAf (60.0-200.0) POC Glucose (mg/dL) 71 L 111 H 120 H (75-99) mg/dL AST (14-35) U/L ALT (10-49) U/L Albumin/Globulin Ratio (1.60-3.17) g/dL
[2020-12-19 20:32] LABS: Glucose,Whole Blood 137 mg/dL (75-99)
[2020-12-19] MEDS: INSULIN DETEMIR (LEVEMIR) 100 UNIT/ML SYR SQ SCH (21:11)
[2020-12-19] MEDS: diphenhydrAMINE 50 MG CAP PO SCH (21:11)
[2020-12-19] MEDS: MELATONIN 5 MG TABLET PO SCH (21:12)
[2020-12-20 02:20] LABS: Glucose,Whole Blood 109 mg/dL (75-99)
[2020-12-20 07:17] LABS: Glucose,Whole Blood 110 mg/dL (75-99)
[2020-12-20 08:23] LABS: HCT 46.5 % (39.0-53.0); HGB 15.5 gm/dL (13.0-17.5); MCH 32.4 pg (25.0-35.0); MCHC 33.4 g/dL (31.0-37.0); MCV 97.2 fL (80.0-100.0); Mean Platelet Volume 8.7; Platelet Count 167 k/uL (150-450); RBC 4.79 m/uL (4.30-5.90)
[2020-12-20 08:43] LABS: ALT 48 U/L (4-49); AST 72 U/L (17-59); African American GFR (CKD) 65 (>60 ml/min/1.73 sqM); Albumin 3.8 g/dL (3.5-5.0); Albumin/Globulin Ratio 1.2; Alkaline Phosphatase 123 U/L (38-126); Anion Gap 11 mmol/L; Blood Urea Nitrogen 23 mg/dL (9-20); Calcium 9.6 mg/dL (8.4-10.2); Carbon Dioxide 23 mmol/L (22-30); Chloride 105 mmol/L (98-107); Globulin 3.3 g/dL; Glucose 118 mg/dL (74-99); Non-African American GFR(CKD) 57 (>60 ml/min/1.73 sqM); Potassium 3.9 mmol/L (3.5-5.1); Sodium 139 mmol/L (137-145); Total Bilirubin 1.4 mg/dL (0.2-1.3); Total Protein 7.1 g/dL (6.3-8.2)
--- NOTE | 2020-12-20 09:41 | P.PN ---
Subjective Progress Note Date: 12/20/20 Principal diagnosis: confusion Patient is 85-year-old male with a complex past medical history including diabetes, fibromyalgia, hard of hearing, dyslipidemia, hypertension, and coronary artery disease with history of myocardial infarction who presented secondary to worsening cognitive disturbances and falls. He does have an appointment scheduled with neuropsych next week and if that does not demonstrate Lewy body dementia will be followed at the normal pressure hydrocephalus clinic associated with [facility]. His sister brought him to the hospital because he has been unsafety keep at home due to his worsening confusion and frequent falls. In the emergency room he underwent an extensive evaluation. Laboratory analysis was consistent with his known chronic kidney disease and baseline creatinine of approximately 1.3. His known to have a slight increase in his calcium level, bilirubin, AST, and total protein levels. Urine drug screen was negative. CT brain showed possible increasing rounding of the temporal horns on lateral ventricles suggestive of possible underlying normal pressure hydrocephalus. Chest x-ray showed no acute process, mild anterior wedging of T12 and L1 recommended for clinical correlation. Liver US showed cholelithiasis. He continued to have confusion that was unchanging. His T Bili has increased and liver enzymes. Patient seen and examined at bedside. Still confused, says yes to pain. Does not answer the rest of the questions. General: non toxic, no distress, appears at stated age Derm: warm, dry Head: atraumatic, normocephalic, symmetric Eyes: EOMI left, no lid lag, anicteric sclera, false eye right with erythema of the lid Mouth: no lip lesion, mucus membranes moist Cardiovascular: S1S2 reg, no murmur, positive posterior tibial pulse bilateral, Lungs: Decreased bs bilateral, no rhonchi, no rales , no accessory muscle use Abdominal: soft, nontender to palpation, no guarding, no appreciable organo megaly Ext: no gross muscle atrophy, no edema, no contractures Neuro: CN II-XI grossly intact, no focal neuro deficits Psych: Alert to self, not oriented to place or year, flat affect Spine: No spinous process tenderness. Mild transaminitis, with cholelithiasis - no with bilirubin elevating again today and pain to palpation of the right upper quadrant - Consult Dr. 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 DVT prophylaxis: SCDs Discussed with: patient and nursing Anticipated discharge: in 2-[address]: SNF A total of 30 minutes was spent on the care of this complex patient more than 50% of the time was spent in counseling and care coordination. Objective - Vital Signs Vital signs: Vital Signs Temp 98.4 F 12/20/20 08:00 Pulse 54 L 12/20/20 08:00 Resp 16 12/20/20 08:00 BP 155/89 12/20/20 08:00 Pulse Ox 98 12/20/20 08:00 Intake & Output 12/19/20 12/20/20 12/20/20 18:59 06:59 18:59 Intake Total 150 540 Balance 150 540 Intake: Oral 150 540 Other: Voiding Method Urinal Incontinent # Voids 3 1 - Labs CBC & Chem 7: 12/20/20 07:37 12/20/20 07:37 Labs: Abnormal Lab Results - Last 24 Hours (Table) 12/19/20 12/19/20 12/19/20 Range/Units 04:20 04:20 11:31 RDW 15.1 H (11.5-14.5) % Anion Gap 13.70 H (4.00-12.00) mmol/L BUN (9-20) mg/dL Est GFR (CKD-EPI)AfAm 57.7 L (60.0-200.0) Est GFR (CKD-EPI)NonAf 49.8 L (60.0-200.0) Glucose (74-99) mg/dL POC Glucose (mg/dL) 111 H (75-99) mg/dL Total Bilirubin (0.2-1.3) mg/dL AST 57 H (14-35) U/L ALT 51 H (10-49) U/L Albumin/Globulin Ratio 1.25 L (1.60-3.17) g/dL 12/19/20 12/19/20 12/20/20 Range/Units 16:43 20:29 02:17 RDW (11.5-14.5) % Anion Gap (4.00-12.00) mmol/L BUN (9-20) mg/dL Est GFR (CKD-EPI)AfAm (60.0-200.0) Est GFR (CKD-EPI)NonAf (60.0-200.0) Glucose (74-99) mg/dL POC Glucose (mg/dL) 120 H 137 H 109 H (75-99) mg/dL Total Bilirubin (0.2-1.3) mg/dL AST (14-35) U/L ALT (10-49) U/L Albumin/Globulin Ratio (1.60-3.17) g/dL 12/20/20 12/20/20 Range/Units 07:16 07:37 RDW (11.5-14.5) % Anion Gap (4.00-12.00) mmol/L BUN 23 H (9-20) mg/dL Est GFR (CKD-EPI)AfAm (60.0-200.0) Est GFR (CKD-EPI)NonAf (60.0-200.0) Glucose 118 H (74-99) mg/dL POC Glucose (mg/dL) 110 H (75-99) mg/dL Total Bilirubin 1.4 H (0.2-1.3) mg/dL AST 72 H (14-35) U/L ALT (10-49) U/L Albumin/Globulin Ratio (1.60-3.17) g/dL
[2020-12-20] MEDS: PANTOPRAZOLE 40 MG TABLET PO SCH (09:48)
[2020-12-20] MEDS: allopurinoL 100 MG TAB PO SCH ×2 (09:48→22:43)
[2020-12-20] MEDS: HYDROcodone/APAP 5-325MG 1 EACH TAB PO PRN (09:49)
[2020-12-20] MEDS: TAMSULOSIN 0.4 MG CAP.ER.24H PO SCH (09:49)
[2020-12-20] MEDS: INSULIN ASPART (NovoLOG) 100 UNIT/ML VIAL SQ SCH ×4 (09:49→22:44)
[2020-12-20] MEDS: amLODIPine 5 MG TAB PO SCH (09:49)
[2020-12-20] MEDS: GABAPENTIN 100 MG CAP PO SCH ×3 (09:49→22:43)
[2020-12-20] MEDS: ATORVASTATIN 80 MG TAB PO SCH (09:49)
[2020-12-20] MEDS: METOPROLOL TARTRATE 50 MG TAB PO SCH ×2 (09:50→22:43)
[2020-12-20 11:54] LABS: Glucose,Whole Blood 110 mg/dL (75-99)
[2020-12-20] MEDS: SODIUM CHLORIDE 0.45% 1,000 ML IV SCH (15:52)
[2020-12-20 16:55] LABS: Glucose,Whole Blood 185 mg/dL (75-99)
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
[2020-12-20 20:27] LABS: Glucose,Whole Blood 192 mg/dL (75-99)
[2020-12-20] MEDS: MELATONIN 5 MG TABLET PO SCH (22:43)
[2020-12-20] MEDS: diphenhydrAMINE 50 MG CAP PO SCH (22:44)
[2020-12-20] MEDS: INSULIN DETEMIR (LEVEMIR) 100 UNIT/ML SYR SQ SCH (22:44)
[2020-12-21 02:45] LABS: Glucose,Whole Blood 187 mg/dL (75-99)
[2020-12-21 07:12] LABS: Glucose,Whole Blood 170 mg/dL (75-99)
[2020-12-21] MEDS: INSULIN ASPART (NovoLOG) 100 UNIT/ML VIAL SQ SCH ×4 (08:07→20:33)
[2020-12-21] MEDS: METOPROLOL TARTRATE 50 MG TAB PO SCH ×2 (08:12→20:34)
[2020-12-21] MEDS: GABAPENTIN 100 MG CAP PO SCH ×3 (08:13→22:07)
[2020-12-21] MEDS: PANTOPRAZOLE 40 MG TABLET PO SCH (08:13)
[2020-12-21] MEDS: allopurinoL 100 MG TAB PO SCH ×2 (08:13→20:34)
[2020-12-21] MEDS: TAMSULOSIN 0.4 MG CAP.ER.24H PO SCH (08:13)
[2020-12-21] MEDS: ATORVASTATIN 80 MG TAB PO SCH (08:13)
[2020-12-21] MEDS: amLODIPine 5 MG TAB PO SCH (08:13)
[2020-12-21 08:37] LABS: HCT 52.3 % (39.0-53.0); HGB 17.1 gm/dL (13.0-17.5); MCH 31.9 pg (25.0-35.0); MCHC 32.7 g/dL (31.0-37.0); MCV 97.4 fL (80.0-100.0); Macrocytosis Slight; Mean Platelet Volume 8.4; Platelet Count 191 k/uL (150-450); RBC 5.37 m/uL (4.30-5.90); RDW 15.7 % (11.5-15.5)
[2020-12-21 08:38] LABS: African American GFR (CKD) 59 (>60 ml/min/1.73 sqM); Anion Gap 9 mmol/L; Blood Urea Nitrogen 34 mg/dL (9-20); Calcium 10.3 mg/dL (8.4-10.2); Carbon Dioxide 26 mmol/L (22-30); Chloride 106 mmol/L (98-107); Glucose 157 mg/dL (74-99); Non-African American GFR(CKD) 51 (>60 ml/min/1.73 sqM); Sodium 141 mmol/L (137-145)
[2020-12-21 09:06] LABS: ALT 79 U/L (4-49); AST 80 U/L (17-59)
[2020-12-21 11:38] LABS: Glucose,Whole Blood 152 mg/dL (75-99)
[2020-12-21] MEDS: SODIUM CHLORIDE 0.45% 1,000 ML IV SCH ×2 (11:43→17:20)
[2020-12-21] MEDS: HYDROcodone/APAP 5-325MG 1 EACH TAB PO PRN (11:45)
[2020-12-21] MEDS: ARTIFICIAL TEARS-HYPROMELLOSE DROPS 15 ML BTL BOTH EYES SCH ×3 (14:24→22:07)
--- NOTE | 2020-12-21 15:47 | P.PN ---
Subjective Progress Note Date: 12/21/20 (Delayed charting seen at 10:15) Principal diagnosis: confusion Patient is 85-year-old male with a complex past medical history including diabetes, fibromyalgia, hard of hearing, dyslipidemia, hypertension, and coronary artery disease with history of myocardial infarction who presented secondary to worsening cognitive disturbances and falls. He does have an appointment scheduled with neuropsych next week and if that does not demonstrate Lewy body dementia will be followed at the normal pressure hydrocephalus clinic associated with [facility]. His sister brought him to the hospital because he has been unsafety keep at home due to his worsening confusion and frequent falls. In the emergency room he underwent an extensive evaluation. Laboratory analysis was consistent with his known chronic kidney disease and baseline creatinine of approximately 1.3. His known to have a slight increase in his calcium level, bilirubin, AST, and total protein levels. Urine drug screen was negative. CT brain showed possible increasing rounding of the temporal horns on lateral ventricles suggestive of possible underlying normal pressure hydrocephalus. Chest x-ray showed no acute process, mild anterior wedging of T12 and L1 recommended for clinical correlation. Liver US showed cholelithiasis. He continued to have confusion that was unchanging. His T Bili h as increased and liver enzymes. He was seen by surgery who recommended outpatient follow-up after his NPH has been addressed for definitive treatment of his gallbladder. Patient seen and examined at bedside. Still confused, says yes to pain. Does not answer the rest of the questions. General: non toxic, no distress, appears at stated age Derm: warm, dry Head: atraumatic, normocephalic, symmetric Eyes: EOMI left, no lid lag, anicteric sclera, false eye right with erythema of the lid Mouth: no lip lesion, mucus membranes moist Cardiovascular: S1S2 reg, no murmur, positive posterior tibial pulse bilateral, Lungs: Decreased bs bilateral, no rhonchi, no rales , no accessory muscle use Abdominal: soft, nontender to palpation, no guarding, no appreciable organomegaly Ext: no gross muscle atrophy, no edema, no contractures Neuro: CN II-XI grossly intact, no focal neuro deficits Psych: Alert to self, not oriented to place or year, flat affect Spine: No spinous process tenderness. Mild transaminitis, with cholelithiasis - no with bilirubin elevating again today and pain to palpation of the right upper quadrant - Outpatient follow-up with surgery Dehydration with hypercalcemia and prerenal azotemia -Patient has removed multiple IVs. -We'll attempt oral hydration. 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 -PT/OT recs -Continue with outpatient neuropsych testing as well as follow-up with [facility] NPH clinic Diabetes mellitus type 2 -Levemir, sliding scale insulin -Follow blood sugars Hypertension - hold lasix - Continue with Norvasc, metoprolol Dyslipidemia -statin Hyercalcemia due to dehydration, resolved. Anticipated discharge in a.m. to auto mode. Currently awaiting insurance office. DVT prophylaxis: SCDs Discussed with: patient and nursing Anticipated discharge: In a.m. Anticipated discharge place: SNF A total of 30 minutes was spent on the care of this complex patient more than 50% of the time was spent in counseling and care coordination. Objective - Vital Signs Vital signs: Vital Signs Temp 97.7 F 12/21/20 13:25 Pulse 65 12/21/20 13:25 Resp 14 12/21/20 13:25 BP 103/78 12/21/20 13:25 Pulse Ox 95 12/21/20 13:25 Intake & Output 12/20/20 12/21/20 12/21/20 18:59 06:59 18:59 Intake Total 250 200 Balance 250 200 Intake: Oral 250 200 Other: Voiding Method Urinal Urinal Incontinent Incontinent # Voids 1 - Labs CBC & Chem 7: 12/21/20 08:00 12/21/20 08:00 Labs: Abnormal Lab Results - Last 24 Hours (Table) 12/20/20 12/20/20 12/21/20 Range/Units 16:52 20:25 02:43 RDW (11.5-15.5) % BUN (9-20) mg/dL Creatinine (0.66-1.25) mg/dL Glucose (74-99) mg/dL POC Glucose (mg/dL) 185 H 192 H 187 H (75-99) mg/dL Calcium (8.4-10.2) mg/dL AST (17-59) U/L ALT (4-49) U/L 12/21/20 12/21/20 12/21/20 Range/Units 07:07 08:00 08:00 RDW 15.7 H (11.5-15.5) % BUN 34 H (9-20) mg/dL Creatinine 1.27 H (0.66-1.25) mg/dL Glucose 157 H (74-99) mg/dL POC Glucose (mg/dL) 170 H (75-99) mg/dL Calcium 10.3 H (8.4-10.2) mg/dL AST (17-59) U/L ALT (4-49) U/L 12/21/20 12/21/20 Range/Units 08:00 11:36 RDW (11.5-15.5) % BUN (9-20) mg/dL Creatinine (0.66-1.25) mg/dL Glucose (74-99) mg/dL POC Glucose (mg/dL) 152 H (75-99) mg/dL Calcium (8.4-10.2) mg/dL AST 80 H (17-59) U/L ALT 79 H (4-49) U/L
--- NOTE | 2020-12-21 15:54 | P.PN ---
Subjective Progress Note Date: 12/21/20 The patient is seen on rounds. He remains confused. He was able to eat about half of his meals without any obvious nausea or pain per nursing. The patient does not know where he is. He says he lost his parents and doesn't know where they are Objective - Vital Signs Vital signs: Vital Signs Temp 97.7 F 12/21/20 13:25 Pulse 65 12/21/20 13:25 Resp 14 12/21/20 13:25 BP 103/78 12/21/20 13:25 Pulse Ox 95 12/21/20 13:25 Intake & Output 12/20/20 12/21/20 12/21/20 18:59 06:59 18:59 Intake Total 250 200 Balance 250 200 Intake: Oral 250 200 Other: Voiding Method Urinal Urinal Incontinent Incontinent # Voids 1 - Constitutional General appearance: Present: cooperative, no acute distress - Gastrointestinal General gastrointestinal: Present: normal bowel sounds, soft. Absent: organomegaly, tenderness - Labs CBC & Chem 7: 12/21/20 08:00 12/21/20 08:00 Labs: Abnormal Lab Results - Last 24 Hours (Table) 12/20/20 12/20/20 12/21/20 Range/Units 16:52 20:25 02:43 RDW (11.5-15.5) % BUN (9-20) mg/dL Creatinine (0.66-1.25) mg/dL Glucose (74-99) mg/dL POC Glucose (mg/dL) 185 H 192 H 187 H (75-99) mg/dL Calcium (8.4-10.2) mg/dL AST (17-59) U/L ALT (4-49) U/L 12/21/20 12/21/20 12/21/20 Range/Units 07:07 08:00 08:00 RDW 15.7 H (11.5-15.5) % BUN 34 H (9-20) mg/dL Creatinine 1.27 H (0.66-1.25) mg/dL Glucose 157 H (74-99) mg/dL POC Glucose (mg/dL) 170 H (75-99) mg/dL Calcium 10.3 H (8.4-10.2) mg/dL AST (17-59) U/L ALT (4-49) U/L 12/21/20 12/21/20 Range/Units 08:00 11:36 RDW (11.5-15.5) % BUN (9-20) mg/dL Creatinine (0.66-1.25) mg/dL Glucose (74-99) mg/dL POC Glucose (mg/dL) 152 H (75-99) mg/dL Calcium (8.4-10.2) mg/dL AST 80 H (17-59) U/L ALT 79 H (4-49) U/L Assessment and Plan (1) Cholelithiasis Current Visit: Yes Status: Acute Code(s): K80.20 - CALCULUS OF GALLBLADDER W/O CHOLECYSTITIS W/O OBSTRUCTION SNOMED Code(s): 362012369 (2) Altered mental status Current Visit: Yes Status: Acute Code(s): R41.82 - ALTERED MENTAL STATUS, UNSPECIFIED SNOMED Code(s): 299452340 (3) Normal pressure hydrocephalus Current Visit: Yes Status: Acute Code(s): G91.2 - (IDIOPATHIC) NORMAL PRESSURE HYDROCEPHALUS SNOMED Code(s): 82107500 Plan: Liver function tests have improved and he is tolerating a diet without any issues. Recommend treatment for his normal pressure hydrocephalus. He can follow-up with me in the office once that's addressed and we can discuss laparoscopic cholecystectomy at that time.
[2020-12-21 16:26] LABS: Glucose,Whole Blood 192 mg/dL (75-99)
[2020-12-21 20:15] LABS: Glucose,Whole Blood 162 mg/dL (75-99)
[2020-12-21] MEDS: INSULIN DETEMIR (LEVEMIR) 100 UNIT/ML SYR SQ SCH (20:33)
[2020-12-21] MEDS: MELATONIN 5 MG TABLET PO SCH (20:33)
[2020-12-21] MEDS: diphenhydrAMINE 50 MG CAP PO SCH (22:23)
[2020-12-22 02:25] LABS: Glucose,Whole Blood 157 mg/dL (75-99)
[2020-12-22 05:35] LABS: HCT 46.6 % (39.0-53.0); HGB 15.5 gm/dL (13.0-17.5); MCH 33.1 pg (25.0-35.0); MCHC 33.3 g/dL (31.0-37.0); MCV 99.1 fL (80.0-100.0); Macrocytosis Slight; Mean Platelet Volume 8.3; Platelet Count 170 k/uL (150-450); RDW 14.9 % (11.5-15.5); WBC 8.6 k/uL (3.8-10.6)
[2020-12-22 05:45] LABS: ALT 62 U/L (4-49); AST 56 U/L (17-59); African American GFR (CKD) 52 (>60 ml/min/1.73 sqM); Albumin 3.9 g/dL (3.5-5.0); Albumin/Globulin Ratio 1.2; Alkaline Phosphatase 140 U/L (38-126); Anion Gap 10 mmol/L; Blood Urea Nitrogen 35 mg/dL (9-20); Calcium 9.8 mg/dL (8.4-10.2); Carbon Dioxide 26 mmol/L (22-30); Chloride 103 mmol/L (98-107); Globulin 3.3 g/dL; Glucose 128 mg/dL (74-99); Non-African American GFR(CKD) 45 (>60 ml/min/1.73 sqM); Potassium 3.7 mmol/L (3.5-5.1); Sodium 139 mmol/L (137-145); Total Bilirubin 0.9 mg/dL (0.2-1.3); Total Protein 7.2 g/dL (6.3-8.2)
[2020-12-22 06:46] LABS: Glucose,Whole Blood 112 mg/dL (75-99)
[2020-12-22] MEDS: INSULIN ASPART (NovoLOG) 100 UNIT/ML VIAL SQ SCH ×2 (07:55→12:11)
[2020-12-22] MEDS: PANTOPRAZOLE 40 MG TABLET PO SCH (07:57)
[2020-12-22] MEDS: GABAPENTIN 100 MG CAP PO SCH (09:48)
[2020-12-22] MEDS: ATORVASTATIN 80 MG TAB PO SCH (09:48)
[2020-12-22] MEDS: TAMSULOSIN 0.4 MG CAP.ER.24H PO SCH (09:49)
[2020-12-22] MEDS: allopurinoL 100 MG TAB PO SCH (09:49)
[2020-12-22] MEDS: amLODIPine 5 MG TAB PO SCH (09:49)
[2020-12-22] MEDS: METOPROLOL TARTRATE 50 MG TAB PO SCH (09:55)
[2020-12-22] MEDS: ARTIFICIAL TEARS-HYPROMELLOSE DROPS 15 ML BTL BOTH EYES SCH ×2 (09:57→13:11)
[2020-12-22 10:57] VITALS: BMI 30.7
--- NOTE | 2020-12-22 11:02 | P.PN ---
Subjective Progress Note Date: 12/22/20 Principal diagnosis: Confusion and falls. 85-year-old male with a complex past medical history including diabetes, fibromyalgia, hard of hearing, dyslipidemia, hypertension, and coronary artery disease with history of myocardial infarction who presented secondary to w orsening cognitive disturbances and falls. He does have an appointment scheduled with neuropsych next week and if that does not demonstrate Lewy body dementia will be followed at the normal pressure hydrocephalus clinic associated with [facility]. His sister brought him to the hospital because he has been unsafety keep at home due to his worsening confusion and frequent falls. In the emergency room he underwent an extensive evaluation. Laboratory analysis was consistent with his known chronic kidney disease and baseline creatinine of approximately 1.3. He is known to have a slight increase in his calcium level, bilirubin, AST, and total protein levels. Urine drug screen was negative. CT brain showed possible increasing rounding of the temporal horns on lateral ventricles suggestive of possible underlying normal pressure hydrocephalus. Chest x-ray showed no acute process, mild anterior wedging of T12 and L1 recommended for clinical correlation. Liver US showed cholelithiasis. He continued to have confusion that was unchanging. His T Bili has increased and liver enzymes. He was seen by surgery who recommended outpatient follow-up after his NPH has been addressed for definitive treatment of his gallbladder. Patient is only oriented to self. His mental status has been on and off, when seen he was lethargic but wakes up to questions and answers briefly. He denied any pain. No sob. Objective - Vital Signs Vital signs: Vital Signs Temp 98.1 F 12/22/20 08:04 Pulse 55 L 12/22/20 08:04 Resp 16 12/22/20 08:04 BP 131/78 12/22/20 08:04 Pulse Ox 97 12/22/20 08:04 Intake & Output 12/21/20 12/22/20 12/22/20 18:59 06:59 18:59 Intake Total 540 200 Balance 540 200 Intake: Oral 540 200 Other: Voiding Method Urinal Incontinent # Voids 2 # Bowel Movements 1 1 - Exam General: non toxic, no distress, appears at stated age Derm: warm, dry Head: atraumatic, normocephalic, symmetric Eyes: EOMI left, no lid lag, anicteric sclera, false eye right with erythema of the lid Mouth: no lip lesion, mucus membranes moist Cardiovascular: S1S2 reg, no murmur, positive posterior tibial pulse bilateral, Lungs: Decreased bs bilateral, no rhonchi, no rales , no accessory muscle use Abdominal: soft, nontender to palpation, no guarding, no appreciable organomegaly Ext: no gross muscle atrophy, no edema, no contractures Neuro: CN II-XI grossly intact, no focal neuro deficits Psych: Alert to self, not oriented to place or year, flat affect Spine: No spinous process tenderness. - Labs CBC & Chem 7: 12/22/20 04:32 12/22/20 04:32 Labs: Abnormal Lab Results - Last 24 Hours (Table) 12/21/20 12/21/20 12/21/20 Range/Units 11:36 16:24 20:14 BUN (9-20) mg/dL Creatinine (0.66-1.25) mg/dL Glucose (74-99) mg/dL POC Glucose (mg/dL) 152 H 192 H 162 H (75-99) mg/dL ALT (4-49) U/L Alkaline Phosphatase (38-126) U/L 12/22/20 12/22/20 12/22/20 Range/Units 02:23 04:32 06:45 BUN 35 H (9-20) mg/dL Creatinine 1.42 H (0.66-1.25) mg/dL Glucose 128 H (74-99) mg/dL POC Glucose (mg/dL) 157 H 112 H (75-99) mg/dL ALT 62 H (4-49) U/L Alkaline Phosphatase 140 H (38-126) U/L Assessment and Plan Plan: Mild transaminitis, hyperbilirubinemia with cholelithiasis/ pain to palpation of the right upper quadrant - Outpatient follow-up with surgery Dehydration with hypercalcemia and prerenal azotemia -Patient has removed multiple IVs. -Oral hydration. 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 -PT/OT recs -Continue with outpatient neuropsych testing as well as follow-up with [facility] Diabetes mellitus type 2 -Levemir, sliding scale insulin -Follow blood sugars Hypertension - hold lasix - Continue with Norvasc, metoprolol Dyslipidemia -statin Hyercalcemia due to dehydration, resolved. Anticipated discharge in a.m. to auto mode. Currently awaiting insurance office. DVT prophylaxis: SCDs Discussed with: patient and nursing Anticipated discharge: In a.m. Anticipated discharge place: SNF A total of 30 minutes was spent on the care of this complex patient more than 50% of the time was spent in counseling and care coordination.
[2020-12-22 11:50] LABS: Glucose,Whole Blood 191 mg/dL (75-99)
--- NOTE | 2020-12-22 14:21 | P.DS ---
Providers Date of admission: 12/16/20 16:53 Expected date of discharge: 12/22/20 Attending physician: Yon Richardson Consults: 12/16/20 16:53 Consult Physician Urgent Consulting Provider: Christina Vela Consult Reason/Comments: Ultrasound status, normal pressure hydrocephalus Do you want consulting provider notified?: Yes 12/20/20 09:30 Consult Physician Routine Consulting Provider: Yann Ramirez Consult Reason/Comments: gallstone Do you want consulting provider notified?: Yes Primary care physician: [facility] Course: 85-year-old male with very complex past medical history significant for diabetes, fibromyalgia, hard of hearing, dyslipidemia, hypertension, and coronary artery disease, underlying cognitive impairment sec to normal pressure hydrocephalus with occasional behavioral disturbances that presented to the emergency room brought in by family members with worsening confusion. According to his family he was asking random questions and was very hard to direct. Apparently he has not followed up with neurology as he was supposed to and his condition continued to deteriorate. In addition to the worsening mental status he has been falling frequently as well. In the emergency room, patient had a computed tomography scan of the brain showing no acute findings, there was findings consistent with NPH. Laboratory analysis was consistent with his known chronic kidney disease and baseline creatinine of approximately 1.3. His known to have a slight increase in his calcium level, bilirubin, AST, and total protein levels. Urine drug screen was negative. Chest x-ray showed no acute process, mild anterior wedging of T12 and L1 recommended for clinical correlation. Liver US showed cholelithiasis. He continued to have confusion that was unchanging through the admission. His T Bili has increased and liver enzymes. He was seen by surgery who recommended outpatient follow-up after his NPH has been addressed for definitive treatment of his gallbladder. He does have an appointment scheduled with neuropsych next week and if that does not demonstrate Lewy body dementia will be followed at the normal pressure hydrocephalus clinic associated with [facility]. He was seen by neuro service who concurred. Today he will be discharged to the [place] for further rehab. Time for discharge 36 min Plan - Discharge Summary Discharge Rx Participant: No New Discharge Prescriptions: New Gabapentin [Neurontin] 200 mg PO TID 30 Days #90 cap Insulin Detemir (Levemir) [Levemir] 10 unit SQ HS 30 Days #3 ml Continue Tamsulosin HCl [Flomax] 0.4 mg PO DAILY allopurinoL [Zyloprim] 100 mg PO BID Omeprazole 20 mg PO DAILY Atorvastatin [Lipitor] 80 mg PO DAILY diphenhydrAMINE [Benadryl] 50 mg PO HS amLODIPine [Norvasc] 5 mg PO DAILY Acetaminophen Tab [Tylenol] 1,000 mg PO TID Melatonin 10 mg PO HS Insulin Aspart [NovoLOG Flexpen] 4 units SQ AC-TID Metoprolol Tartrate [Lopressor] 50 mg PO BID Discontinued Furosemide [Lasix] 40 mg PO BID Apixaban [Eliquis] 2.5 mg PO BID Gabapentin 600 mg PO TID Insulin Glargine,Hum.rec.anlog [Lantus Solostar] 14 unit SQ HS Discharge Medication List Tamsulosin HCl [Flomax] 0.4 mg PO DAILY 08/17/17 [History] allopurinoL [Zyloprim] 100 mg PO BID 10/30/17 [History] Atorvastatin [Lipitor] 80 mg PO DAILY 06/27/19 [History] Omeprazole 20 mg PO DAILY 06/27/19 [History] Acetaminophen Tab [Tylenol] 1,000 mg PO TID 12/16/20 [History] Insulin Aspart [NovoLOG Flexpen] 4 units SQ AC-TID 12/16/20 [History] Melatonin 10 mg PO HS 12/16/20 [History] Metoprolol Tartrate [Lopressor] 50 mg PO BID 12/16/20 [History] amLODIPine [Norvasc] 5 mg PO DAILY 12/16/20 [History] diphenhydrAMINE [Benadryl] 50 mg PO HS 12/16/20 [History] Gabapentin [Neurontin] 200 mg PO TID 30 Days #90 cap 12/22/20 [Rx] Insulin Detemir (Levemir) [Levemir] 10 unit SQ HS 30 Days #3 ml 12/22/20 [Rx] Follow up Appointment(s)/Referral(s): None,Stated [REFERRING] - 1-2 days
[2020-12-22 14:30] VITALS: BP 119/67; PULSE 84; RESP 18; TEMP 96.2
[2020-12-22] MEDS: HYDROcodone/APAP 5-325MG 1 EACH TAB PO PRN (14:56)
== END 2020-12-22 16:47 ==
LOC: EC 13:06 → INTOOBSV 16:53 → 4SSUR 16:53 → UNDODISIN 12-22 16:47
PROVIDERS: ADMIT Internal Medicine; ATTEND Internal Medicine
DX: G91.2 (Idiopathic) normal pressure hydrocephalus (principal); M48.54XA Collapsed vertebra, not elsewhere classified, thoracic region, initial encounter for fracture; M48.56XA Collapsed vertebra, not elsewhere classified, lumbar region, initial encounter for fracture; I50.22 Chronic systolic (congestive) heart failure; I13.0 Hypertensive heart and chronic kidney disease with heart failure and stage 1 through stage 4 chronic kidney disease, or unspecified chronic kidney disease; M54.5 Low back pain; I25.10 Atherosclerotic heart disease of native coronary artery without angina pectoris; E78.5 Hyperlipidemia, unspecified; M10.9 Gout, unspecified; I48.0 Paroxysmal atrial fibrillation; I45.10 Unspecified right bundle-branch block; M79.7 Fibromyalgia; Z95.810 Presence of automatic (implantable) cardiac defibrillator; H54.61 Unqualified visual loss, right eye, normal vision left eye; Z79.01 Long term (current) use of anticoagulants; Z79.4 Long term (current) use of insulin; K80.20 Calculus of gallbladder without cholecystitis without obstruction; N18.9 Chronic kidney disease, unspecified; E11.22 Type 2 diabetes mellitus with diabetic chronic kidney disease; E83.52 Hypercalcemia; E86.0 Dehydration; I25.2 Old myocardial infarction; R29.6 Repeated falls; Z95.2 Presence of prosthetic heart valve
CPT/HCPCS: 99285; 96361 ×2; 96360; 36415; 94760; 93005; 97116; 97530; 97162; 97535 ×2; 97166; 80053 ×5; 80048; 82330; 82247; 84450; 84460; 84484; 85025; 85027 ×5; 85610; 85730; 80306; 81001; 72110; 71046; 76705; 70450; G0378 ×7

== ENCOUNTER 2021-01-31 01:03 | Inpatient (IN) | payer MEDICARE ==
[2021-01-31 02:58] LABS: Glucose,Whole Blood 154 mg/dL (75-99)
[2021-01-31] MEDS: SODIUM CHLORIDE 0.9% 1,000 ML IV SCH ×2 (06:09→20:57)
[2021-01-31 06:12] LABS: Glucose,Whole Blood 150 mg/dL (75-99)
[2021-01-31 06:58] LABS: Anisocytosis Slight; HGB 16.8 gm/dL (13.0-17.5); Hypochromasia Slight; MCH 33.7 pg (25.0-35.0); MCHC 33.5 g/dL (31.0-37.0); MCV 100.5 fL (80.0-100.0); Macrocytosis Slight; Mean Platelet Volume 8.9; Platelet Count 228 k/uL (150-450); Poikilocytosis Slight; RBC 4.97 m/uL (4.30-5.90); WBC 17.4 k/uL (3.8-10.6)
[2021-01-31 07:45] LABS: African American GFR (CKD) >90 (>60 ml/min/1.73 sqM); Anion Gap 17 mmol/L; Blood Urea Nitrogen 16 mg/dL (9-20); Calcium 9.8 mg/dL (8.4-10.2); Carbon Dioxide 16 mmol/L (22-30); Chloride 107 mmol/L (98-107); Glucose 176 mg/dL (74-99); Non-African American GFR(CKD) 80 (>60 ml/min/1.73 sqM); Sodium 140 mmol/L (137-145)
[2021-01-31 07:51] LABS: Potassium 5.2 mmol/L (3.5-5.1)
[2021-01-31 08:05] LABS: Band Neutrophils % 1 %; Lymphocytes # (M) 0.87 k/uL (1.0-4.8); Monocytes # (M) 1.04 k/uL (0-1.0); Neutrophils % (M) 88 %; Nucleated Red Blood Cells 0 /100 WBC (0-0); Total Cells Counted 100
[2021-01-31] MEDS ORDERED: ACETAMINOPHEN SUPPOSITORY 650 MG SUPP RECTAL PRN (08:49)
--- NOTE | 2021-01-31 08:50 | XR ---
EXAMINATION TYPE: XR chest 1V portable DATE OF EXAM: 01/31/2021 COMPARISON: Chest x-ray 12/16/2020 HISTORY: Aspiration, altered mental status TECHNIQUE: Single frontal view of the chest is obtained. FINDINGS: Intracardiac defibrillator leads are stable. The heart remains enlarged. Patchy basilar de nsity is present and has developed in the interval. There is no evident pneumothorax or sizable effus ion. Aorta is dense. IMPRESSION: Correlate for pneumonia
[2021-01-31] MEDS ORDERED: SCOPOLAMINE 1.5MG/72HR PATCH TRANSDERM SCH (09:00)
[2021-01-31 11:41] LABS: Glucose,Whole Blood 178 mg/dL (75-99)
[2021-01-31] MEDS ORDERED: ASPIRIN 300 MG SUPP RECTAL SCH (13:45)
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
--- NOTE | 2021-01-31 15:35 | CT ---
EXAMINATION TYPE: CT brain wo con DATE OF EXAM: 01/31/2021 HISTORY: stroke, right side weakness CT DLP: 1126 mGycm. Automated Exposure Control for Dose Reduction was Utilized. TECHNIQUE: CT scan of the head is performed without contrast. COMPARISON: CT brain December 16, 2020. FINDINGS: There is new chicas-white matter blurring and sulcal effacement involving right frontal lob e with superior temporal and parietal lobe extension. Subtle midline shift up to 6 mm axial image 28 at level of septum pellucidum. Background mild diffuse cerebral atrophy. Supersellar cistern maintain ed. Hyperdense distal left distal internal carotid artery consistent with long segment thrombus ext ending into middle cerebral artery IMPRESSION: Large evolving acute left-sided infarct with thrombosed distal left internal carotid harsha ry extending into middle cerebral artery. Local mass effect and midline shift noted. A [place] level critical message alert has been initiated for Ruddy Mabry MD via the [employer] Critical Results System on 01/31/2021 3:32 PM. This message alert has been sent to Ruddy lyman MD via the preferences provided by the clinician for the receipt of Radiology Critical Finding s. Message ID [id number].
[2021-01-31] MEDS ORDERED: metroNIDAZOLE-NS PMX 500 MG in SALINE 1 100ML.BAG IVPB SCH (16:00)
--- NOTE | 2021-01-31 16:10 | US ---
EXAMINATION TYPE: US carotid duplex BILAT DATE OF EXAM: 01/31/2021 COMPARISON: Previous exam dated 06/06/2017 CLINICAL HISTORY: stroke. Poor historian. Patient unable to wake up. Patient snoring during whole e xam creating artifact. Extremely limited exam EXAM MEASUREMENTS: RIGHT: Peak Systolic Velocity (PSV) cm/sec ----- Right CCA: 90.0 ----- Right ICA: 60.4 ----- Right ECA: 82.5 ICA/CCA ratio: 0.7 RIGHT: End Diastole cm/sec ----- Right CCA: 0.0 ----- Right ICA: 18.2 ----- Right ECA: 0.0 LEFT: Peak Systolic Velocity (PSV) cm/sec ----- Left CCA: 79.3 ----- Left ICA: 98.0 ----- Left ECA: 79.0 ICA/CCA ratio: 1.2 LEFT: End Diastole cm/sec ----- Left CCA: 0.0 ----- Left ICA: 0.0 ----- Left ECA: 0.0 VERTEBRALS (direction of flow): Right Vertebral: Left Vertebral: Rhythm: Arrhythmia Bilateral wall thickening and severe plaque visualized. No elevated velocities. Grayscale, color Do ppler, spectral Doppler imaging performed of the carotid arteries. Waveform analysis does not show si gnificant stenosis. IMPRESSION: No hemodynamic significant stenosis of the proximal internal carotid arteries by Doppler criteria, an indirect measurement of carotid stenosis. Technologist reports a technically limited ex am. Cardiac arrhythmia is reported by the technologist. NASCET criteria was used in interpretation of this exam? Criteria for Assigning % of Stenosis / Diameter reduction (Estimation based on the indirect measurements of the internal carotid artery velocities (ICA PSV). 1. Normal (no stenosis)=ICA PSV < 125 cm/s: ratio < 2.0: ICA EDV<40 cm/s. 2. Less than 50% stenosis=ICA PSV < 125 cm/s: ratio < 2.0: ICA EDV<40 cm/s. 3. 50 to 69% stenosis=ICA PSV of 125 to 230 cm/s: ration 2.0 ? 4.0: ICA EDV 40-100 cm/s. 4. Greater than 70% stenosis to near occlusion= ICA PSV > 230 cm/s: ratio > 4.0: ICA EDV > 100 cm/s. 5. Near occlusion= ICA PSV velocities may be low or undetectable: variable ratio and ICA EDV. 6. Total occlusion=unable to detect flow.
[2021-01-31 16:53] LABS: Glucose,Whole Blood 193 mg/dL (75-99)
[2021-01-31] MEDS ORDERED: MORPHINE SULFATE 4 MG/ML SYRINGE IVP PRN (17:32)
[2021-01-31] MEDS ORDERED: ATROPINE OPHTH SOLN 1% 5ML BTL BOTH EYES PRN (17:34)
--- NOTE | 2021-01-31 17:53 | EEG ---
ELECTROENCEPHALOGRAM REPORT DATE OF SERVICE: 01/31/2021 CLINICAL HISTORY: This is an 85-year-old gentleman with acute left MCA stroke who has altered mental status. The video EEG is obtained to evaluate for seizure epileptiform activity. Relevant medications: The patient is not on any antiepileptic drug. EEG TYPE: A routine 21-channel EEG is performed with video using the 10/20 electrode placement system. DESCRIPTION: During awake state the background is asymmetric. Over the right hemisphere the background consists of low to moderate voltage of 4 5 hertz nonrhythmic theta activity intermixed with delta activity, while over the left hemisphere background consists of low to moderate voltage of 1-1.5 nonrhythmic delta activity. There is no physiological sleep architecture seen. There is no focal slowing. Interictal and ictal: None. ACTIVATION PROCEDURE: Photic stimulation and hyperventilation are not performed. CLINICAL INTERPRETATION: This is an abnormal routine EEG. The background slowing is asymmetric with severe over the left while moderate to severe over the right. There are no focal slowing, epileptiform discharge or seizure on the EEG. Clinical correlation is recommended. SHANTA / MICHELLEN: [id number] / MTDD
[2021-01-31 18:19] VITALS: BP 111/70; PULSE 75
[2021-01-31 20:27] LABS: Glucose,Whole Blood 156 mg/dL (75-99)
[2021-01-31] MEDS: LORazepam 2 MG/ML INJ IV PRN (20:32)
[2021-01-31] MEDS ORDERED: ATORVASTATIN 80 MG TAB PO SCH (21:00)
[2021-01-31] MEDS ORDERED: HEPARIN SODIUM,PORCINE/PF 5,000 UNIT/0.5 ML SYRINGE SQ SCH (21:00)
[2021-01-31] MEDS: MORPHINE SULFATE (100 MG/2 ML) 100 MG in SODIUM CHLORIDE 0.9% 100 ML IV SCH (21:01)
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
[2021-02-01] MEDS: MORPHINE SULFATE (100 MG/2 ML) 100 MG in SODIUM CHLORIDE 0.9% 100 ML IV SCH (09:40)
[2021-02-01] MEDS: LORazepam 2 MG/ML INJ IV PRN (11:04)
[2021-02-01 21:50] VITALS: RESP 20
[2021-02-02] MEDS: MORPHINE SULFATE (100 MG/2 ML) 100 MG in SODIUM CHLORIDE 0.9% 100 ML IV SCH (05:13)
[2021-02-02 05:22] VITALS: TEMP 104.1
--- NOTE | 2021-02-09 15:25 | CDI ---
Documentation Clarification Form Mortality Review Date: 02/09/2021 03:22:14 PM From: Odilia Reed RN, CCDS Admit Date: 01/31/2021 02:46:00 AM Patient Name: Boris Palacios Visit Number: [id number] Discharge Date: 02/02/2021 08:53:00 AM ATTENTION: The Clinical Documentation Specialists (CDI) and [facility] Coding Staff appreciate your assistance in clarifying documentation. Please respond to the clarification below the line at the bottom and electronically sign. The CDI & [facility] Coding staff will review the response and follow-up if needed. Please note: Queries are made part of the Legal Health Record. If you have any questions, please contact the author of this message via ITS. Dr. Rusty Haley Patient was admitted as a transfer from outside facility with CVA. History/Risk Factors: Dementia, Atrial Fib, Normal pressure hydrocephalus, DM2, HTN Clinical Indicators: 01/31 Labs: WBC 17.4 01/31/2021 CT Brain result: Large evolving acute left-sided infarct with thrombosed distal left internal carotid artery extending into middle cerebral artery. Local mass effect and midline shift noted." 01/31 Neuro Consult: Acute stroke (CT showed Left MCA sign with infarct. Symptoms of right hemiplegia and unresponsive and non-verbal).No IV TPA since outside window. No intervention since DNR, unresponsive and hx of dementia per ED note.* Altered mental status seems due to largely from his stroke. Also it seems patient has septic encephalopathy (seem possible aspiration pneumonia. CT head is reported as large evolving acute left sided infarct with thrombosed distal left ICA carotid artery extending into middle cerebral artery. Local mass effect and midline shift noted. The shift is reported as 6mm." Treatment: Patient was made comfort measures In your professional opinion, can you please clarify the underlying cause, condition or process, if any, represented by these findings? Vasogenic cerebral edema Other cerebral edema, please specify Cerebral edema, etiology unknown Herniation Unable to determine Other condition, please specify (Last Revision: March 2017) Cytotoxic edema due to large ischemic stroke MTDD
--- NOTE | 2021-02-09 15:34 | CDI ---
Documentation Clarification Form Mortality Review Date: 02/09/2021 03:27:33 PM From: Odilia Reed RN, CCDS Admit Date: 01/31/2021 02:46:00 AM Patient Name: Boris Palacios Visit Number: [id number] Discharge Date: 02/02/2021 08:53:00 AM ATTENTION: The Clinical Documentation Specialists (CDI) and [facility] Coding Staff appreciate your assistance in clarifying documentation. Please respond to the clarification below the line at the bottom and electronically sign. The CDI & [facility] Coding staff will review the response and follow-up if needed. Please note: Queries are made part of the Legal Health Record. If you have any questions, please contact the author of this message via ITS. Dr. Ruddy Mabry The patient presented with the following clinical indicators. Additional clarification regarding the etiology/cause of the clinical indicators is requested. History/Risk Factors: Dementia, Paroxysmal Atrial Fib, CAD, PCI, HTN, HLD, IDDM 2, Clinical Indicators: WBC:4.84/17.4 Neutrophils 15.4 Lactic acid: not checked at outside facility or this one Blood cultures: not done 01/31 0800 Vital signs: Temp 101.5, HR 85, RR 28, B/P 133/81, Spo2 95% 2L NC 01/31 H&P: "Fever with possible aspiration pneumonitis/pneumonia." Treatment: Antibiotics: none given IVF @ 75 cc/hr. In your professional opinion, please clarify if these findings signify one of the following conditions: [ ] Sepsis POA [ ] Sepsis ruled out [ ] Other, please specify [ ] Unable to determine SIRS Criteria: 2 or more of the following may indicate SIRS -Temperature < 96.8F (36C) or > 101.0F (38.3C) -Heart Rate > 90 bpm -Respiratory Rate > 20 breaths/min or PaCO2 < 32 mmHg -White Blood Cell Count > 12,000 or < 4,000 cells/mm3 or > 10% bands (Template Last Reviewed: July 2020) Sepsis POA, antibiotics started. MTDD
--- NOTE | 2021-02-17 08:49 | ECHOF ---
Referral Reason:stroke MEASUREMENTS -------- HEIGHT: 172.7 cm WEIGHT: 76.2 kg BP: 118/57 IVSd: 1.6 cm (0.6 - 1.1) LVIDd: 5.4 cm (3.9 - 5.3) LVPWd: 1.2 cm (0.6 - 1.1) EDV(Teich): 139 ml IVSs: 2.1 cm LVIDs: 4.6 cm LVPWs: 1.1 cm %IVS Thck: 29 % ESV(Teich): 96 ml EF(Teich): 30 % %FS: 14 % SV(Teich): 42 ml RVIDd: 3.2 cm (< 3.3) LALs A4C: 6.7 cm LAAs A4C: 19.4 cm LAESV A-L A4C: 48 ml LAESV MOD A4C: 45 ml Ao Diam: 2.7 cm (2.0 - 3.7) AV Cusp: 1.4 cm (1.5 - 2.6) EPSS: 1.7 cm LVOT Vmax: 0.59 m/s LVOT maxP.39 mmHg AV Vmax: 1.05 m/s AV maxP.45 mmHg TR Vmax: 1.43 m/s TR maxP.13 mmHg RAP: 5.00 mmHg RVSP: 13.13 mmHg MV EF SLOPE: 47.02 mm/s (70 - 150) MV EXCURSION: 13.54 mm (> 18.000) FINDINGS -------- Sinus rhythm. This was a technically difficult study with suboptimal views. The left ventricular size is normal. There is moderate concentric left ventricular hypertrophy. T here is moderate global hypokinesis of LV . Overall left ventricular systolic function is moderate- severely impaired with, an EF between 30 - 35 %. The right ventricle is normal in size. The left atrium was not well visualized. The right atrium was not well visualized. xx ml of Lumason was utilized for enhancement of images. Interatrial and interventricular septum intact. There is no evidence of aortic regurgitation. There is no evidence of aortic stenosis. Mild mitral regurgitation is present. Mild tricuspid regurgitation present. There is no evidence of pulmonary hypertension. The right v entricular systolic pressure, as measured by Doppler, is 13.13mmHg. There is no pulmonic regurgitation present. The aortic root size is normal. IVC Not well visulized. There is no pericardial effusion. CONCLUSIONS -------- 1. The left ventricular size is normal. 2. There is moderate concentric left ventricular hypertrophy. 3. There is moderate global hypokinesis of LV . 4. Overall left ventricular systolic function is moderate-severely impaired with, an EF between 30 - 35 %. 5. Mild mitral regurgitation is present. 6. Mild tricuspid regurgitation present. MANAGER FARM: Olga Corona RDCS
== END 2021-02-02 08:53 | disposition expired | DRG 64 ==
LOC: 3SCARD 02:46
PROVIDERS: ADMIT Internal Medicine; ATTEND Internal Medicine
DX: I63.032 Cerebral infarction due to thrombosis of left carotid artery (principal); J69.0 Pneumonitis due to inhalation of food and vomit; A41.9 Sepsis, unspecified organism; R65.20 Severe sepsis without septic shock; G93.41 Metabolic encephalopathy; G93.6 Cerebral edema; G91.2 (Idiopathic) normal pressure hydrocephalus; G81.91 Hemiplegia, unspecified affecting right dominant side; E11.42 Type 2 diabetes mellitus with diabetic polyneuropathy; F03.90 Unspecified dementia, unspecified severity, without behavioral disturbance, psychotic disturbance, mood disturbance, and anxiety; I48.0 Paroxysmal atrial fibrillation; Z79.4 Long term (current) use of insulin; Z66 Do not resuscitate; Z51.5 Encounter for palliative care; R29.737 NIHSS score 37; E78.5 Hyperlipidemia, unspecified; I10 Essential (primary) hypertension; F41.9 Anxiety disorder, unspecified; I25.10 Atherosclerotic heart disease of native coronary artery without angina pectoris; I25.2 Old myocardial infarction; M79.7 Fibromyalgia; M10.9 Gout, unspecified; H91.90 Unspecified hearing loss, unspecified ear; Z79.891 Long term (current) use of opiate analgesic; Z79.899 Other long term (current) drug therapy; Z87.891 Personal history of nicotine dependence; Z95.810 Presence of automatic (implantable) cardiac defibrillator; Z95.5 Presence of coronary angioplasty implant and graft; Z86.73 Personal history of transient ischemic attack (TIA), and cerebral infarction without residual deficits; Z86.79 Personal history of other diseases of the circulatory system; Z91.81 History of falling; Z97.0 Presence of artificial eye; Z90.01 Acquired absence of eye; Z87.39 Personal history of other diseases of the musculoskeletal system and connective tissue; Z98.890 Other specified postprocedural states; Z88.6 Allergy status to analgesic agent; Z88.5 Allergy status to narcotic agent; Z88.8 Allergy status to other drugs, medicaments and biological substances; Z82.49 Family history of ischemic heart disease and other diseases of the circulatory system
CPT/HCPCS: 70450; 71045; 80048; 85025; 93306; 93880; 95819